=== PATIENT | male | born 1960 | race Hispanic/Latino ===

== ENCOUNTER 2017-07-22 13:15 | Emergency (ER) | payer BC, OTHER ==
[2017-07-22 13:25] VITALS: BP 154/91; PULSE 96; RESP 16; TEMP 97.8; O2SAT 98
--- NOTE | 2017-07-22 14:49 | ED PDOC ---
HPI: Psych/Substance Abuse Time Seen by Provider: 07/22/17 14:15 Chief Complaint (Nursing): Psychiatric Evaluation Chief Complaint (Provider): Anxiety History Per: Patient Additional Complaint(s): To ED for evaluation of feeling anxious for a few weeks. Friend with patient reports patient has been acting bizarre. Denies SI/HI Pt himself offers no physical complaints Past Medical History Reviewed: Nursing Documentation, Vital Signs Vital Signs: Last Vital Signs Temp 97.8 F 07/22/17 13:19 Pulse 96 H 07/22/17 13:19 Resp 16 07/22/17 13:19 BP 154/91 H 07/22/17 13:19 Pulse Ox 98 07/22/17 13:19 - Medical History PMH: Anxiety, CAD, HTN, Hyperlipidemia Denies: Diabetes, Hepatitis, HIV, Seizures, Sexually Transmitted Disease - Surgical History Surgical History: Coronary Stent - Family History Family History: States: Hypertension - Living Arrangements Living Arrangements: With Friends/Others - Social History Current smoker - smoking cessation education provided: No Alcohol: None Drugs: Denies - Home Medications Home Medications: Ambulatory Orders Medication Instructions Recorded Atorvastatin [Lipitor] 80 mg PO HS 07/09/16 Carvedilol [Coreg] 6.25 mg PO Q12 07/09/16 Clopidogrel [Plavix] 75 mg PO DAILY 07/09/16 Losartan [Cozaar] 100 mg PO DAILY 07/09/16 Aspirin [Ecotrin] 81 mg PO DAILY 07/21/16 Fenofibrate [Triglide] 160 mg PO DAILY 07/26/17 [place]-3 Fatty Acids/Fish Oil [Fish 1,000 mg PO DAILY 07/26/17 Oil 1,000 mg Capsule] Escitalopram [Lexapro] 10 mg PO DAILY 15 Days #15 tab 07/29/17 Gabapentin [Neurontin] 200 mg PO TID 07/31/17 Risperidone [Risperdal] 1 mg PO HS 07/31/17 - Allergies Allergies/Adverse Reactions: Allergies Allergy/AdvReac Type Severity Reaction Status Date / Time No Known Allergies Allergy Verified 07/26/17 13:39 Review of Systems Psych: Positive for: Anxiety Physical Exam - Reviewed Nursing Documentation Reviewed: Yes Vital Signs Reviewed: Yes - Physical Exam Appears: Positive for: Well, Non-toxic, No Acute Distress Head Exam: Positive for: ATRAUMATIC, NORMAL INSPECTION, NORMOCEPHALIC Skin: Positive for: Normal Color, Warm, DRY Eye Exam: Positive for: EOMI, Normal appearance, PERRL ENT: Positive for: Normal ENT Inspection Neck: Positive for: Normal, Painless ROM Cardiovascular/Chest: Positive for: Regular Rate, Rhythm Respiratory: Positive for: CNT, Normal Breath Sounds Gastrointestinal/Abdominal: Positive for: Normal Exam, Bowel Sounds, Soft Back: Positive for: Normal Inspection Extremity: Positive for: Normal ROM Neurologic/Psych: Positive for: Alert, Oriented - ECG O2 Sat by Pulse Oximetry: 98 Medical Decision Making Medical Decision Making: Pt medicated with 1 tab Ativan PO for anxiety Pt underwent crisis eval, see notes. Disposition - Clinical Impression Clinical Impression: Anxiety disorder - Disposition Disposition: Routine/Home Disposition Time: 15:20 Condition: STABLE Instructions: Generalized Anxiety Disorder (ED) Forms: [facility] (Khmer)
== END 2017-07-22 15:19 | disposition home or self-care (01) ==
LOC: H.ER 13:15
DX: F41.9 Anxiety disorder, unspecified (principal); I10 Essential (primary) hypertension; Z95.5 Presence of coronary angioplasty implant and graft; Z79.82 Long term (current) use of aspirin; Z86.79 Personal history of other diseases of the circulatory system

== ENCOUNTER 2017-07-26 13:20 | Inpatient (IN) | payer BC ==
[2017-07-26 13:48] VITALS: O2SAT 97
[2017-07-26 15:18] LABS: BASO # 0.1 K/uL (0.0-0.2); BASO % 0.8 % (0.0-2.0); EOS % 0.4 % (0.0-4.0); HEMOGLOBIN 15.8 g/dL (12.0-18.0); LYMPH # 1.8 K/uL (1.0-4.3); LYMPH % 19.1 % (20.0-40.0); MEAN CELL VOLUME 88.5 fl (80.0-94.0); MEAN CORPUSCULAR HEMOGLOBIN 28.8 pg (27.0-31.0); MEAN CORPUSCULAR HGB CONC 32.6 g/dL (33.0-37.0); MEAN PLATELET VOLUME 9.3 fl (7.2-11.7); MONO # 0.8 K/uL (0.0-0.8); MONO % 8.3 % (0.0-10.0); NEUT # 6.9 K/uL (1.8-7.0); NEUT % 71.4 % (50.0-75.0); NRBC % 0.1 % (0.0-0.0); RBC 5.48 Mil/uL (4.40-5.90); RED CELL DISTRIBUTION WIDTH 13.8 % (11.5-14.5); WHITE BLOOD COUNT 9.7 K/uL (4.8-10.8)
[2017-07-26 15:34] LABS: BLOOD UREA NITROGEN 21 mg/dl (9-20); CALCIUM 10.1 mg/dL (8.4-10.2); GFR AFRICAN-AMERICAN > 60; GFR NON-AFRICAN AMERICAN > 60
[2017-07-26 15:35] LABS: ACETAMINOPHEN < 10.0 ug/ml (10.0-30.0); SALICYLATE < 1.0 mg/dl
[2017-07-26 15:44] LABS: SQUAMOUS EPITHIAL < 1 /hpf (0-5); URINE BILIRUBIN NEGATIVE (NEGATIVE); URINE BLOOD SMALL (NEGATIVE); URINE CLARITY SLIGHTY-CLOUDY (Clear); URINE COLOR YELLOW (YELLOW); URINE GLUCOSE (UA) NEG (Normal); URINE LEUKOCYTE ESTERASE NEG Leu/uL (Negative); URINE NITRATE NEGATIVE (NEGATIVE); URINE PROTEIN NEGATIVE (NEGATIVE); URINE UROBILINOGEN 0.2-1.0 mg/dL (0.2-1.0)
[2017-07-26 15:46] LABS: BARBITURATES, UR NEGATIVE (NEGATIVE); BENZODIAZEPINES, UR NEGATIVE (NEGATIVE); OPIATES, UR NEGATIVE (NEGATIVE); PHENCYCLIDINE, UR NEGATIVE (NEGATIVE)
--- NOTE | 2017-07-26 15:55 | ED PDOC ---
HPI: Psych/Substance Abuse Time Seen by Provider: 07/26/17 14:13 Chief Complaint (Nursing): Psychiatric Evaluation Chief Complaint (Provider): Crisis Evaluation History Per: Patient History/Exam Limitations: no limitations Current Symptoms Are (Timing): Still Present Additional History Per: Family (brother) Additional Complaint(s): Phillip is a 56 y/o male with a history of anxiety and depression who was brought to the ED by his brother because patient has been talking to himself, anxious and not taking his medications. Patient denies suicidal or homicidal ideation. Psychiatrist: Dr. Amor Past Medical History Reviewed: Historical Data, Nursing Documentation, Vital Signs Vital Signs: Last Vital Signs Temp 97.5 F L 07/26/17 13:39 Pulse 88 07/26/17 13:39 Resp 16 07/26/17 13:39 BP 111/73 07/26/17 13:39 Pulse Ox 97 07/26/17 13:39 - Medical History PMH: Anxiety, CAD, Depression, HTN, Hyperlipidemia Denies: Diabetes, Hepatitis, HIV, Seizures, Sexually Transmitted Disease - Surgical History Surgical History: Coronary Stent - Family History Family History: States: Hypertension - Social History Current smoker - smoking cessation education provided: Yes (several cigarettes/ day) Alcohol: None Drugs: Denies - Home Medications Home Medications: Ambulatory Orders Medication Instructions Recorded Atorvastatin [Lipitor] 80 mg PO DAILY 07/09/16 Carvedilol [Coreg] 6.25 mg PO Q12 07/09/16 Clopidogrel [Plavix] 75 mg PO DAILY 07/09/16 Losartan [Cozaar] 100 mg PO DAILY 07/09/16 DULoxetine [Cymbalta] 60 mg PO DAILY #30 ecc 07/13/16 Aspirin [Ecotrin] 81 mg PO DAILY 07/21/16 Lorazepam [Ativan] 0.5 mg PO BID 07/21/16 Divalproex [Depakote Sprinkles] 500 mg PO HS 07/22/17 Escitalopram Oxalate [Lexapro] 5 mg PO DAILY 07/22/17 OLANZapine [Zyprexa] 10 mg PO HS 07/22/17 busPIRone [Buspar] 5 mg PO Q8 07/22/17 - Allergies Allergies/Adverse Reactions: Allergies Allergy/AdvReac Type Severity Reaction Status Date / Time No Known Allergies Allergy Verified 07/26/17 13:39 Review of Systems ROS Statement: Except As Marked, All Systems Reviewed And Found Negative Psych: Positive for: Anxiety, Other (talking to himself, noncompliance with meds ). Negative for: Suicidal ideation (or homicidal ideation) Physical Exam - Reviewed Nursing Documentation Reviewed: Yes Vital Signs Reviewed: Yes - Physical Exam Appears: Positive for: Well, Non-toxic, No Acute Distress Cardiovascular/Chest: Positive for: Regular Rate, Rhythm. Negative for: Murmur Respiratory: Positive for: Normal Breath Sounds. Negative for: Respiratory Distress Gastrointestinal/Abdominal: Positive for: Normal Exam, Soft. Negative for: Tenderness Neurologic/Psych: Positive for: Alert, Oriented - Laboratory Results Result Diagrams: 07/26/17 15:04 07/26/17 15:04 - ECG O2 Sat by Pulse Oximetry: 97 (RA) Pulse Ox Interpretation: Normal Medical Decision Making Medical Decision Making: Time: 14:26 Initial Impression: Anxiety Initial Plan: --Acetaminophen --Alcohol Serum --BMP --Urine Drug Screen --Salicylate --CBC --Urinalysis --Crisis Evaluation Urine Drug Screen: Negative Time: 15:52 --Patient is medically cleared for crisis evaluation. Scribe Attestation: Documented by Zohaib Hancock, acting as a scribe for Dr. Sagar Donnelly MD. Provider Scribe Attestation: All medical record entries made by the Scribe were at my direction and personally dictated by me. I have reviewed the chart and agree that the record accurately reflects my personal performance of the history, physical exam, medical decision making, and the department course for this patient. I have also personally directed, reviewed, and agree with the discharge instructions and disposition. Disposition - Disposition Forms: [facility] (Mongolian)
--- NOTE | 2017-07-26 18:59 | PCM.BM ---
Treatment Plan Problems - Problems identified on initial assessmt Problem 1 Date Initiated: 07/26/17 Time Initiated: 18:57 Assessment reference: NA Status: Active Anxiety Date Initiated: 07/26/17 Time Initiated: 18:57 Assessment reference: NA Status: Active Problem 2 Date Initiated: 07/26/17 Fear Date Initiated: 07/26/17 Time Initiated: 18:59 Assessment reference: NA Status: Active Sleep pattern Date Initiated: 07/26/17 Time Initiated: 18:59 Assessment reference: NA Status: Active Treatment assets and liabiliti Patient Assests: cooperative, self-reliant, ADL independent, good support system Patient Liabilities: financial problems, medical problems, other
[2017-07-26] MEDS ORDERED: Magnesium Hydroxide Susp 30 ml UD PO PRN (19:57)
[2017-07-26] MEDS ORDERED: Alum-Mag Hydrox-Simethicone Susp (30 mL) PO PRN (19:57)
[2017-07-26] MEDS ORDERED: DiphenhydrAMINE 50 mg/ml Inj IM PRN (19:57)
[2017-07-27 09:31] LABS: T4 8.63 ug/dl (5.5-11.0)
--- NOTE | 2017-07-27 11:14 | CARD ---
APPROVED REPORT EKG Measurement Heart [id number] <Conclusion> Normal sinus rhythm Possible Left atrial enlargement Possible Lateral infarct, age undetermined Inferior infarct, age undetermined Abnormal ECG
--- NOTE | 2017-07-27 11:38 | CP.PCM.CON ---
<Ricardo Colmenares - Last Filed: 07/27/17 14:54> History of Present Illness - History of Present Illness History of Present Illness: Hospitalist Consult 57 y/o M with a PMHx of HTN, HLD and CAD admitted to psych unit due to anxiety exacerbation and bizarre behavior. Pt reports feeling very overwhelmed with many financial and private problems. Pt reports taking his medication most of the days, 6 days a week. 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 Pt denies fever, headache, dizziness, CP, SOB, abdominal pain or change in bowel movement. PMD: None. Medications: Atorvastatin, Coreg, Plavix , Fenofibrate, Cozaar and psych medications. PMHx: CAD-stent placed 5 years ago as per pt. Hypertension nad hyperlipidemia. PSHx: Stent Placement after ME 5 years ago. FHx: Father due to liver tumor and mother after a stroke. SHx: Tobacco, 1ppd x more than 15 years. No alcohol and no recreational drugs. Review of Systems - Constitutional Constitutional: absent: Chills, Fever, Malaise, Night Sweats - EENT Eyes: absent: Change in Vision, Discharge, Dry Eye Ears: absent: Decreased Hearing Nose/Mouth/Throat: absent: Nasal Congestion, Tongue Swelling - Cardiovascular Cardiovascular: absent: Chest Pain at Rest, Claudication - Respiratory Respiratory: absent: Cough, Dyspnea - Gastrointestinal Gastrointestinal: absent: Abdominal Pain, Bloating, Change in Bowel Habits, Nausea, Vomiting - Genitourinary Genitourinary: absent: Difficulty Urinating - Neurological Neurological: absent: Abnormal Hearing, Headaches, Paresthesias Past Patient History - Past Social History Smoking Status: Heavy Smoker > 10 Cigarettes Daily Alcohol: None Drugs: Denies - CARDIAC Hx Cardiac Disorders: Yes Hx Hypertension: Yes Other/Comment: CAD - PULMONARY Hx Tuberculosis: No - NEUROLOGICAL Hx Seizures: No - HEENT Hx HEENT Problems: No - RENAL Hx Chronic Kidney Disease: No - ENDOCRINE/METABOLIC Hx Endocrine Disorders: No - HEMATOLOGICAL/ONCOLOGICAL Hx Human Immunodeficiency Virus (HIV): No - INTEGUMENTARY Hx Dermatological Problems: No - MUSCULOSKELETAL/RHEUMATOLOGICAL Hx Musculoskeletal Disorders: No - GASTROINTESTINAL Hx Gastrointestinal Disorders: No Hx Ulcer: No Hx Vomiting: No - GENITOURINARY/GYNECOLOGICAL Hx Genitourinary Disorders: No Hx Sexually Transmitted Disorders: No - PSYCHIATRIC Hx Substance Use: No - SURGICAL HISTORY Hx Coronary Stent: Yes - ANESTHESIA Hx Anesthesia: Yes Hx Anesthesia Reactions: No Has any member of the family had a problem w/ anesthesia?: No Meds Allergies/Adverse Reactions: Allergies Allergy/AdvReac Type Severity Reaction Status Date / Time No Known Allergies Allergy Verified 07/26/17 13:39 - Medications Medications: Current Medications Acetaminophen (Tylenol 325mg Tab) 650 mg PO Q4 PRN PRN Reason: Pain, moderate (4-7) Al Hydrox/Mg Hydrox/Simethicone (Maalox Plus 30 Ml) 30 ml PO Q4 PRN PRN Reason: Dyspepsia Aspirin (Ecotrin) 81 mg PO DAILY [facility] Last Admin: 07/27/17 09:47 Dose: 81 mg Atorvastatin Calcium (Lipitor) 80 mg PO HS [facility] Last Admin: 07/26/17 21:03 Dose: 80 mg Carvedilol (Coreg) 6.25 mg PO Q12 [facility] Last Admin: 07/27/17 09:45 Dose: 6.25 mg Clopidogrel Bisulfate (Plavix) 75 mg PO DAILY [facility] Last Admin: 07/27/17 09:47 Dose: 75 mg Diphenhydramine HCl (Benadryl) 50 mg IM Q6 PRN PRN Reason: Extrapyramidal S/S Unable PO Diphenhydramine HCl (Benadryl) 50 mg PO HS PRN PRN Reason: Sleep Escitalopram Oxalate (Lexapro) 10 mg PO DAILY [facility] Fenofibrate (Tricor) 145 mg PO DAILY [facility] Last Admin: 07/27/17 09:47 Dose: 145 mg Haloperidol (Haldol) 5 mg PO Q4 PRN PRN Reason: Agitation Haloperidol Lactate (Haldol) 5 mg IM Q4 PRN PRN Reason: Agitation, Unable to Take PO Lorazepam (Ativan) 2 mg IM Q4 PRN PRN Reason: Anxiety/Agitation,Unable PO Losartan Potassium (Cozaar) 100 mg PO DAILY [facility] Last Admin: 07/27/17 09:48 Dose: 100 mg Magnesium Hydroxide (Milk Of Magnesia) 30 ml PO HS PRN PRN Reason: Constipation Nicotine (Nicoderm Cq) 1 patch TD DAILY [facility] Physical Exam - Constitutional Appears: Well, No Acute Distress - Eye Exam Additional comments: Presence of strabismus. - ENT Exam ENT Exam: Mucous Membranes Moist - Neck Exam Neck exam: Positive for: Full Rom. Negative for: Meningismus - Respiratory Exam Respiratory Exam: Clear to Auscultation Bilateral, NORMAL BREATHING PATTERN - Cardiovascular Exam Cardiovascular Exam: REGULAR RHYTHM, +S1, +S2 - GI/Abdominal Exam GI & Abdominal Exam: Normal Bowel Sounds, Soft. absent: Distended, Firm, Guarding, Tenderness - Extremities Exam Extremities exam: Positive for: full ROM, normal inspection. Negative for: calf tenderness - Neurological Exam Neurological exam: Alert, Oriented x3 - Skin Skin Exam: Dry, Intact Results - Vital Signs Recent Vital Signs: Last Vital Signs Temp 97.7 F 07/27/17 09:12 Pulse 66 07/27/17 09:48 Resp 18 07/27/17 09:12 BP 125/79 07/27/17 09:48 Pulse Ox 97 07/26/17 16:06 - Labs Result Diagrams: 07/26/17 15:04 07/26/17 15:04 Labs: Laboratory Results - last 24 hr 07/26/17 07/26/17 07/26/17 15:04 15:04 15:04 WBC 9.7 RBC 5.48 Hgb 15.8 Hct 48.4 MCV 88.5 MCH 28.8 MCHC 32.6 L RDW 13.8 Plt Count 219 MPV 9.3 Neut % (Auto) 71.4 Lymph % (Auto) 19.1 L [place] % (Auto) 8.3 Eos % (Auto) 0.4 Baso % (Auto) 0.8 Neut # (Auto) 6.9 Lymph # (Auto) 1.8 [place] # (Auto) 0.8 Eos # (Auto) 0.0 Baso # (Auto) 0.1 Sodium 143 Potassium 3.9 Chloride 101 Carbon Dioxide 26 Anion Gap 20 BUN 21 H Creatinine 0.5 L Est GFR ( Amer) > 60 Est GFR (Non-Af Amer) > 60 Random Glucose 129 H Calcium 10.1 Triglycerides Cholesterol LDL Cholesterol Direct HDL Cholesterol Thyroxine (T4) TSH 3rd Generation Urine Color Urine Clarity Urine pH Ur Specific [place] Urine Protein Urine Glucose (UA) Urine Ketones Urine Blood Urine Nitrate Urine Bilirubin Urine Urobilinogen Ur Leukocyte Esterase Urine RBC (Auto) Urine Microscopic WBC Ur Squamous Epith Cells Salicylates < 1.0 Urine Opiates Screen Urine Methadone Screen Acetaminophen < 10.0 L Ur Barbiturates Screen Valproic Acid Ur Phencyclidine Scrn Ur Amphetamines Screen U Benzodiazepines Scrn U Oth Cocaine Metabols U Cannabinoids Screen Alcohol, Quantitative < 10 07/26/17 07/26/17 07/27/17 15:04 15:04 08:43 WBC RBC Hgb Hct MCV MCH MCHC RDW Plt Count MPV Neut % (Auto) Lymph % (Auto) [place] % (Auto) Eos % (Auto) Baso % (Auto) Neut # (Auto) Lymph # (Auto) [place] # (Auto) Eos # (Auto) Baso # (Auto) Sodium Potassium Chloride Carbon Dioxide Anion Gap BUN Creatinine Est GFR ( Amer) Est GFR (Non-Af Amer) Random Glucose Calcium Triglycerides Cholesterol LDL Cholesterol Direct HDL Cholesterol Thyroxine (T4) TSH 3rd Generation Urine Color Yellow Urine Clarity Slighty-cloudy Urine pH 6.0 Ur Specific [place] 1.020 Urine Protein Negative Urine Glucose (UA) Neg Urine Ketones Negative Urine Blood Small Urine Nitrate Negative Urine Bilirubin Negative Urine Urobilinogen 0.2-1.0 Ur Leukocyte Esterase Neg Urine RBC (Auto) 4 H Urine Microscopic WBC 1 Ur Squamous Epith Cells < 1 Salicylates Urine Opiates Screen Negative Urine Methadone Screen Negative Acetaminophen Ur Barbiturates Screen Negative Valproic Acid < 10.0 L Ur Phencyclidine Scrn Negative Ur Amphetamines Screen Negative U Benzodiazepines Scrn Negative U Oth Cocaine Metabols Negative U Cannabinoids Screen Negative Alcohol, Quantitative 07/27/17 08:43 WBC RBC Hgb Hct MCV MCH MCHC RDW Plt Count MPV Neut % (Auto) Lymph % (Auto) [place] % (Auto) Eos % (Auto) Baso % (Auto) Neut # (Auto) Lymph # (Auto) [place] # (Auto) Eos # (Auto) Baso # (Auto) Sodium Potassium Chloride Carbon Dioxide Anion Gap BUN Creatinine Est GFR ( Amer) Est GFR (Non-Af Amer) Random Glucose Calcium Triglycerides 120 Cholesterol 169 LDL Cholesterol Direct 112 HDL Cholesterol 43 Thyroxine (T4) 8.63 TSH 3rd Generation 0.53 Urine Color Urine Clarity Urine pH Ur Specific [place] Urine Protein Urine Glucose (UA) Urine Ketones Urine Blood Urine Nitrate Urine Bilirubin Urine Urobilinogen Ur Leukocyte Esterase Urine RBC (Auto) Urine Microscopic WBC Ur Squamous Epith Cells Salicylates Urine Opiates Screen Urine Methadone Screen Acetaminophen Ur Barbiturates Screen Valproic Acid Ur Phencyclidine Scrn Ur Amphetamines Screen U Benzodiazepines Scrn U Oth Cocaine Metabols U Cannabinoids Screen Alcohol, Quantitative Assessment & Plan - Assessment and Plan (Free Text) Assessment: 57 y/o M with a PMHx of HTN, HLD and CAD admitted to psych unit for anxiety exacerbation and bizarre behavior. Plan: 1. Anxiety State - Continue psychiatry management. 2. CAD - C/w Aspirin, Lipitor, Clopidogrel, Losartan, Lipitor, Carvedilol - EKG abnormal with NSR, possible lateral infarct, inferior infart with age undetermined. No acute changes from last year's EKG. - Monitor vital signs and symptoms. 3. HTN - C/w Losartan - Monitor BP 4. HLD - C/w Lipitor and fenifibrate - Lipid profile CHOL 169, Trig 120, LDL 112, HDL 43. - Date & Time Date: 07/27/17 Time: 10:30 <Summer Ferro - Last Filed: 07/27/17 15:46> Meds - Medications Medications: Current Medications Acetaminophen (Tylenol 325mg Tab) 650 mg PO Q4 PRN PRN Reason: Pain, moderate (4-7) Al Hydrox/Mg Hydrox/Simethicone (Maalox Plus 30 Ml) 30 ml PO Q4 PRN PRN Reason: Dyspepsia Aspirin (Ecotrin) 81 mg PO DAILY [facility] Last Admin: 07/27/17 09:47 Dose: 81 mg Atorvastatin Calcium (Lipitor) 80 mg PO HS [facility] Last Admin: 07/26/17 21:03 Dose: 80 mg Carvedilol (Coreg) 6.25 mg PO Q12 [facility] Last Admin: 07/27/17 09:45 Dose: 6.25 mg Clopidogrel Bisulfate (Plavix) 75 mg PO DAILY [facility] Last Admin: 07/27/17 09:47 Dose: 75 mg Diphenhydramine HCl (Benadryl) 50 mg IM Q6 PRN PRN Reason: Extrapyramidal S/S Unable PO Diphenhydramine HCl (Benadryl) 50 mg PO HS PRN PRN Reason: Sleep Escitalopram Oxalate (Lexapro) 10 mg PO DAILY [facility] Last Admin: 07/27/17 13:42 Dose: 10 mg Fenofibrate (Tricor) 145 mg PO DAILY [facility] Last Admin: 07/27/17 09:47 Dose: 145 mg Gabapentin (Neurontin) 100 mg PO TID [facility] Last Admin: 07/27/17 13:42 Dose: 100 mg Haloperidol (Haldol) 5 mg PO Q4 PRN PRN Reason: Agitation Haloperidol Lactate (Haldol) 5 mg IM Q4 PRN PRN Reason: Agitation, Unable to Take PO Lorazepam (Ativan) 2 mg IM Q4 PRN PRN Reason: Anxiety/Agitation,Unable PO Losartan Potassium (Cozaar) 100 mg PO DAILY [facility] Last Admin: 07/27/17 09:48 Dose: 100 mg Magnesium Hydroxide (Milk Of Magnesia) 30 ml PO HS PRN PRN Reason: Constipation Nicotine (Nicoderm Cq) 1 patch TD DAILY [facility] Results - Vital Signs Recent Vital Signs: Last Vital Signs Temp 97.7 F 07/27/17 09:12 Pulse 66 07/27/17 09:48 Resp 18 07/27/17 09:12 BP 125/79 07/27/17 09:48 Pulse Ox 97 07/26/17 16:06 - Labs Result Diagrams: 07/26/17 15:04 07/26/17 15:04 Labs: Laboratory Results - last 24 hr 07/26/17 07/27/17 07/27/17 15:04 08:43 08:43 Triglycerides 120 Cholesterol 169 LDL Cholesterol Direct 112 HDL Cholesterol 43 Thyroxine (T4) 8.63 TSH 3rd Generation 0.53 Urine Opiates Screen Negative Ur Barbiturates Screen Negative Valproic Acid < 10.0 L Ur Phencyclidine Scrn Negative Ur Amphetamines Screen Negative U Benzodiazepines Scrn Negative U Oth Cocaine Metabols Negative U Cannabinoids Screen Negative Assessment & Plan - Assessment and Plan (Free Text) Assessment: no evidence of acute ischemia or infarct, no chest pain. Attending/Attestation - Attestation I have personally seen and examined this patient.: Yes I have fully participated in the care of the patient.: Yes I have reviewed all pertinent clinical information: Yes Notes (Text): 07/27/17 15:46 Seen, examined, discussed with resident Dr. Colmenares, agree with findings and plan as above.
--- NOTE | 2017-07-27 15:59 | PCM.PSYCH ---
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 Patient states he feels anxious. Mr. Fang stated that patient was in the ER a couple of days ago and he walked out, patient responded that he was discharged, brother stated that patient refused to be admitted and that was the reason he walked out. Mr. Fang stated that he is worry for his brother who is not taking his medication for his medical problems. Patient have an heart chung and he is telling his brother that he missed his medication because he forget to take it. Patient had been very anxious, not able to eat, patient had been talking to himself. Mr. Fang stated that his brother is always concerned about his financial situation after he was lost his job. They have a two family home that they inherit from their parents. Patient lives there and is collecting rent from the tenant. As per Mr. Fang patient should sell the home and live with the money that he would get from the house without all the stress that cause to have a property. He told his brother that he don't want any part of that money, and he is leaving everything to him, so he can be without any financial stress. Mr. Fang is worry for his brother and would like to see him admitted for stabilization. [ End ] Current Medications: Active Medications Generic Name Dose Route Start Last Admin Trade Name Freq PRN Reason Stop Dose Admin Acetaminophen 650 mg 07/26/17 19:57 Tylenol 325mg Tab PO Q4 PRN Pain, moderate (4-7) Al Hydrox/Mg Hydrox/Simethicone 30 ml 02/14/18 19:57 Maalox Plus 30 Ml PO Q4 PRN Dyspepsia Aripiprazole 5 mg 07/27/17 22:00 Abilify PO HS ENEIDA Aspirin 81 mg 07/27/17 09:00 07/27/17 09:47 Ecotrin PO 81 mg DAILY ENEIDA Administration Atorvastatin Calcium 80 mg 07/26/17 22:00 07/26/17 21:03 Lipitor PO 80 mg HS ENEIDA Administration Carvedilol 6.25 mg 07/26/17 21:00 07/27/17 09:45 Coreg PO 6.25 mg Q12 ENEIDA Administration Clopidogrel Bisulfate 75 mg 07/27/17 09:00 07/27/17 09:47 Plavix PO 75 mg DAILY ENEIDA Administration Diphenhydramine HCl 50 mg 07/26/17 19:57 Benadryl IM Q6 PRN Extrapyramidal S/S Unable PO Diphenhydramine HCl 50 mg 07/26/17 19:57 Benadryl PO HS PRN Sleep Escitalopram Oxalate 10 mg 07/27/17 10:15 07/27/17 13:42 Lexapro PO 10 mg DAILY [facility] Administration Fenofibrate 145 mg 07/27/17 09:00 07/27/17 09:47 Tricor PO 145 mg DAILY [facility] Administration Gabapentin 100 mg 07/27/17 13:00 07/27/17 13:42 Neurontin PO 100 mg TID ENEIDA Administration Haloperidol 5 mg 07/26/17 19:57 Haldol PO Q4 PRN Agitation Haloperidol Lactate 5 mg 07/26/17 19:57 Haldol IM Q4 PRN Agitation, Unable to Take PO Lorazepam 2 mg 07/26/17 19:57 Ativan IM Q4 PRN Anxiety/Agitation,Unable PO Losartan Potassium 100 mg 07/27/17 09:00 07/27/17 09:48 Cozaar PO 100 mg DAILY [facility] Administration Magnesium Hydroxide 30 ml 07/26/17 19:57 Milk Of Magnesia PO HS PRN Constipation Nicotine 1 patch 07/28/17 09:00 Nicoderm Cq TD DAILY [facility] Past Psychiatric History - Past Psychiatric History Explanation of prior treatment: at least one previous hospitalization at [facility] with similar presentation History of ETOH/Drug Use: denied Pertinent Medical Hx (Current Medical&Sleep Prob, Allergies): Allergies Allergy/AdvReac Type Severity Reaction Status Date / Time No Known Allergies Allergy Verified 07/26/17 13:39 Atorvastatin [Lipitor] 80 mg PO HS 07/09/16 Carvedilol [Coreg] 6.25 mg PO Q12 07/09/16 Clopidogrel [Plavix] 75 mg PO DAILY 07/09/16 Losartan [Cozaar] 100 mg PO DAILY 07/09/16 Aspirin [Ecotrin] 81 mg PO DAILY 07/21/16 Divalproex [Depakote Sprinkles] 500 mg PO HS 07/22/17 OLANZapine [Zyprexa] 10 mg PO HS 07/22/17 busPIRone [Buspar] 5 mg PO Q8 07/22/17 Escitalopram [Lexapro] 10 mg PO DAILY 07/26/17 Fenofibrate [Triglide] 160 mg PO DAILY 07/26/17 [place]-3 Fatty Acids/Fish Oil [Fish Oil 1,000 mg Capsule] 1,000 mg PO DAILY 07/26 Mental Status Examination - Personal Presentation Personal Presentation: Looks older than stated age - Affect Affect: Depressed Additional comments: anxious - Motor Activity Motor Activity: Calm, Psychomotor Agitation - Reliability in Providing Information Reliability in Providing Information: Fair - Speech Speech: Relevant - Mood Mood: Depressed, Anxious - Formal Thought Process Formal Thought Process: Circumstantial Additional comments: pt denied perceptual disturbances but observed internally preoccupied - Obsessions/Compulsions Obsessions: No Compulsions: No - Cognitive Functions Orientation: Person, Place, Situation Sensorium: Alert Judgement: Imparied, as evidence by: Poor judgement, Imparied, as evidence by: Lack of insight into illness - Strength & Assets Inventory Strength & Assets Inventory: Family support - Limitations Additional comments: poor compliance DSM 5 DX - DSM 5 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
[2017-07-27] MEDS: Risperidone M tab 1 MG PO SCH (21:37)
--- NOTE | 2017-07-28 15:45 | PCM.PYCHPN ---
Psychiatric Progress Note - Psychiatric Progress Note Patient seen today, length of contact: pt evaluated discussed with team chart reviewed Patient Chief Complaint: I am less anxious Problems Identified/Issues Discussed: pt evaluated with treatment team, reported less anxious , presenting with brighter mood and affect denied suicidal or homicidal ideations, no reported side effects of medications Medical Problems: at least one previous hospitalization at [facility] with similar presentation DSM 5 Symptoms Update: generalized anxiety disorder depression Medication Change: Yes (increase neurontin) Medical Record Reviewed: Yes Mental Status Examination - Cognitive Function Orientation: Person, Place, Situation Attention: WNL Concentration: WNL Association: WNL Fund of Knowledge: Poor Decription of patient's judgement and insights: fair insight and judgement - Mood Mood: Depressed, Anxious - Affect Affect: Constricted, Depressed - Speech Speech: Soft - Formal Thought Process Formal Thought Process: Circumstantial - Suicidal Ideation Suicidal Ideation: No - Homicidal Ideation Homicidal Ideation: No Goal/Treatment Plan - Goal/Treatment Plan Need for Continued Stay: Severe depression anxiety, Discharge may exacerbated symptoms Progress Toward Problem(s) and Goals/Treatment Plan: lexapro 10mg abilify 2mg neurontin 200mg tid CBT group and supportive therapy
[2017-07-28] MEDS: Risperidone M tab 1 MG PO SCH (21:11)
[2017-07-29 08:59] VITALS: BP 139/62; PULSE 62
[2017-07-29 10:29] VITALS: RESP 16; TEMP 97.1
--- NOTE | 2017-07-29 11:37 | PCM.PSYCH ---
Initial Psychiatric Evaluation - Initial Psychiatric Evaluation Type of Admission: Voluntary Legal Status: Capacity Chief Complaint (in patient's own words): came into hospital was feeling depressed with suicidal thoughts which are no longer present, believes has improved, sleeping and eating well, taking current medication combination which is helping with mood denies side effects Patient's Reaction to Hospitalization: pt signed in voluntarily, was participating in unit based milieu therapy-then signed 48hour notice. History of Present Illness and Precipitating Events: history of depression in past, previously treated in community, intermittent adherence, previously treated at [facility], was feeling overwhelmed-not feeling like he had options-not taking medications intermittently-not reports that he is feeling better realizes that he was overwhelmed, reports that he knows he has to work on coping, is willing to follow up return to [facility] for treatment/mental health. will follow up with [facility] for medical treatment. pt has been on unit staff report pt has been taking rx, seen participating in unit Current Medications: Active Medications Generic Name Dose Route Start Last Admin Trade Name Freq PRN Reason Stop Dose Admin Acetaminophen 650 mg 07/26/17 19:57 Tylenol 325mg Tab PO Q4 PRN Pain, moderate (4-7) Al Hydrox/Mg Hydrox/Simethicone 30 ml 07/26/17 19:57 Maalox Plus 30 Ml PO Q4 PRN Dyspepsia Aspirin 81 mg 07/27/17 09:00 07/29/17 08:54 Ecotrin PO 81 mg DAILY ENEIDA Administration Atorvastatin Calcium 80 mg 07/26/17 22:00 07/28/17 21:11 Lipitor PO 80 mg HS ENEIDA Administration Carvedilol 6.25 mg 07/26/17 21:00 07/29/17 08:53 Coreg PO 6.25 mg Q12 ENEIDA Administration Clopidogrel Bisulfate 75 mg 07/27/17 09:00 07/29/17 08:55 Plavix PO 75 mg DAILY ENEIDA Administration Diphenhydramine HCl 50 mg 07/26/17 19:57 Benadryl IM Q6 PRN Extrapyramidal S/S Unable PO Diphenhydramine HCl 50 mg 07/26/17 19:57 Benadryl PO HS PRN Sleep Escitalopram Oxalate 10 mg 07/27/17 10:15 07/29/17 08:54 Lexapro PO 10 mg DAILY ENEIDA Administration Fenofibrate 145 mg 07/27/17 09:00 07/29/17 08:55 Tricor PO 145 mg DAILY ENEIDA Administration Gabapentin 200 mg 07/28/17 17:00 07/28/17 16:54 Neurontin PO 200 mg TID ENEIDA Administration Haloperidol 5 mg 07/26/17 19:57 Haldol PO Q4 PRN Agitation Haloperidol Lactate 5 mg 07/26/17 19:57 Haldol IM Q4 PRN Agitation, Unable to Take PO Lorazepam 2 mg 07/26/17 19:57 Ativan IM Q4 PRN Anxiety/Agitation,Unable PO Losartan Potassium 100 mg 07/27/17 09:00 07/29/17 08:54 Cozaar PO 100 mg DAILY ENEIDA Administration Magnesium Hydroxide 30 ml 07/26/17 19:57 Milk Of Magnesia PO HS PRN Constipation Nicotine 1 patch 07/28/17 09:00 07/29/17 08:54 Nicoderm Cq TD 1 patch DAILY ENEIDA Administration Risperidone 1 mg 07/27/17 22:00 07/28/17 21:11 Risperdal M-Tab PO 1 mg HS ENEIDA Administration Past Psychiatric History - Past Psychiatric History Prior Psychiatric Treatment: pt sees dr. lopes in [place] for depression/ anxiety [facility]: 07/09[facility]17 Explanation of prior treatment: at least one previous hospitalization at [facility] with similar presentation pt sees dr. lopes in [place] for depression/anxiety for last two months. he is a 55 yo male from [place] and is living in [place]. he has a history of anxiety, which worsened over the last several months. pt states he has lost 20 lbs because of lose of appetite. he has trouble focusing. he worries all the time. he is tremulous. pt is guarded about his symptoms. he apparently made some suicidal statements or statements that could be interpreted as suicidal- asked about what would happen if he was to take more of his blood thinner than prescribed. he is denying that he wants to kill himself. apparently his friends were very concerned and encouraged him to get treatment here. at this time he is agreeable to treatment. he appears to be very anxious and is with halting speech, hand tremors, picking at skin, during the interview. pt worked on [employer] for 20 years and recently was laid off pt is and with son in college at [employer]. History of Abuse: denies Pertinent Medical Hx (Current Medical&Sleep Prob, Allergies): Allergies Allergy/AdvReac Type Severity Reaction Status Date / Time No Known Allergies Allergy Verified 07/26/17 13:39 Atorvastatin [Lipitor] 80 mg PO HS 07/09/16 Carvedilol [Coreg] 6.25 mg PO Q12 07/09/16 Clopidogrel [Plavix] 75 mg PO DAILY 07/09/16 Losartan [Cozaar] 100 mg PO DAILY 07/09/16 Aspirin [Ecotrin] 81 mg PO DAILY 07/21/16 Divalproex [Depakote Sprinkles] 500 mg PO HS 07/22/17 OLANZapine [Zyprexa] 10 mg PO HS 07/22/17 busPIRone [Buspar] 5 mg PO Q8 07/22/17 Escitalopram [Lexapro] 10 mg PO DAILY 07/26/17 Fenofibrate [Triglide] 160 mg PO DAILY 07/26/17 [place]-3 Fatty Acids/Fish Oil [Fish Oil 1,000 mg Capsule] 1,000 mg PO DAILY 07/26
--- NOTE | 2017-07-29 11:49 | PCM.PYCHDC ---
Mental Status Examination - Mental Status Examination Orientation: Person, Place, Situation, Time Memory: Intact Mood: Other (less depressed calmer) Affect: Other (smiles at times , is variation in affect which appear mood congruent) Speech: Appropriate Attention: WNL Concentration: WNL Association: WNL Fund of Knowledge: WNL Formal Thought Process: No Impairment Description of patient's judgement and insight: fair Psychotic Thoughts and Behaviors: denies paranoia, hallucinations, grandiosity Suicidal Ideation: No Current Homicidal Ideation?: No Discharge Summary - Discharge Note Reason for Hospitalization: pt signed in voluntarily, was participating in unit based milieu therapy-then signed 48hour notice. Psychiatric History (includes Medical, Family, Personal Hx): pt sees dr. lopes in [place] for depression/anxiety for last two months. Laboratory Data: per chart Consultations:: List each consultation separately and include: 1. Reason for request. 2. Findings. 3. Follow-up Consultations: hospitalist Summary of Hospital Course include:: 1. Description of specific treatment plan utilized for patients during their course of treatmen. 2. Summarize the time- course for resolution of acute symptoms and/or regressed behaviors. 3. Describe issues identified and worked on during hospitalization. 4. Describe medication utilized. 5. Describe medical problems identified and treated. 6. Reassessment of suicide risk Summary of Hospital Course: pt was admitted on an involuntary basis, was evaluated by psychiatry/treatment team, treatment plan initiated including changing olanzapine to risperdal 1mg po hs, maintain neurontin 300mg po tid and lexapro 10mg po day. pt was evaluated by hospitalist. participated in milieu therapy. pt then submitted 48 hour notice, was evaluated further, was not suicidal, denied psychois. pt did not appear to meeting screening criteria pt was discharged with follow up for both medical and psychiatric care with instructions to return to er, call 911 or call [facility] psychiatric emergency room/mobile crisis if there are any changes in terms of additional suicidal ideations. history of depression in past, previously treated in community, intermittent adherence, previously treated at [facility], was feeling overwhelmed-not feeling like he had options-not taking medications intermittently-not reports that he is feeling better realizes that he was overwhelmed, reports that he knows he has to work on coping, is willing to follow up return to [facility] for treatment/mental health. will follow up with [facility] for medical treatment. pt has been on unit staff report pt has been taking rx, seen participating in unit was previously seen in 07/09/17 at [facility] pt sees dr. lopes in [place] for depression/anxiety for last two months. he is a 55 yo male from [place] and is living in [place]. he has a history of anxiety, which worsened over the last several months. pt states he has lost 20 lbs because of lose of appetite. he has trouble focusing. he worries all the time. he is tremulous. pt is guarded about his symptoms. he apparently made some suicidal statements or statements that could be interpreted as suicidal- asked about what would happen if he was to take more of his blood thinner than prescribed. he is denying that he wants to kill himself. apparently his friends were very concerned and encouraged him to get treatment here. at this time he is agreeable to treatment. he appears to be very anxious and is with halting speech, hand tremors, picking at skin, during the interview. pt worked on [employer] for 20 years and recently was laid off pt is and with son in college at [employer]. - Final Diagnosis (DSM 5) Condition upon Discharge: FAIR Disposition: HOME/ ROUTINE
== END 2017-07-29 12:05 | disposition home or self-care (01) | DRG 885 ==
LOC: H.ER 13:20 → H.ERHOLD 17:39 → H.PSYCH 18:20
PROVIDERS: ADMIT Psychiatry & Neurology Psychiatry; ATTEND Psychiatry & Neurology Psychiatry
PROC: GZHZZZZ Group Psychotherapy (ICD-10-PCS; principal; 2017-07-26)
PROC: GZ58ZZZ Individual Psychotherapy, Cognitive-Behavioral (ICD-10-PCS; 2017-07-26)
DX: F33.3 Major depressive disorder, recurrent, severe with psychotic symptoms (principal); Z91.19 Patient's noncompliance with other medical treatment and regimen; E78.5 Hyperlipidemia, unspecified; F41.1 Generalized anxiety disorder; I10 Essential (primary) hypertension; I25.10 Atherosclerotic heart disease of native coronary artery without angina pectoris; F17.200 Nicotine dependence, unspecified, uncomplicated; I25.2 Old myocardial infarction; Z95.5 Presence of coronary angioplasty implant and graft; Z79.02 Long term (current) use of antithrombotics/antiplatelets; Z79.82 Long term (current) use of aspirin

== ENCOUNTER 2017-07-31 12:48 | Inpatient (IN) | payer BC ==
[2017-07-31 13:11] VITALS: O2SAT 98
[2017-07-31 13:59] LABS: BASO # 0.1 K/uL (0.0-0.2); BASO % 0.7 % (0.0-2.0); EOS % 0.1 % (0.0-4.0); HEMOGLOBIN 15.7 g/dL (12.0-18.0); LYMPH # 1.3 K/uL (1.0-4.3); LYMPH % 14.5 % (20.0-40.0); MEAN CELL VOLUME 88.3 fl (80.0-94.0); MEAN CORPUSCULAR HEMOGLOBIN 29.3 pg (27.0-31.0); MEAN CORPUSCULAR HGB CONC 33.1 g/dL (33.0-37.0); MEAN PLATELET VOLUME 9.2 fl (7.2-11.7); MONO # 0.8 K/uL (0.0-0.8); NEUT # 6.9 K/uL (1.8-7.0); NEUT % 75.7 % (50.0-75.0); RBC 5.35 Mil/uL (4.40-5.90); RED CELL DISTRIBUTION WIDTH 13.7 % (11.5-14.5); WHITE BLOOD COUNT 9.2 K/uL (4.8-10.8)
--- NOTE | 2017-07-31 14:01 | ED PDOC ---
HPI: Psych/Substance Abuse Time Seen by Provider: 07/31/17 13:12 Chief Complaint (Nursing): Psychiatric Evaluation Chief Complaint (Provider): Psychiatric Evaluation History Per: Patient History/Exam Limitations: no limitations Onset/Duration Of Symptoms: Days (x2) Current Symptoms Are (Timing): Still Present Associated Symptoms: Anxiety Additional History Per: Family (Brother) Additional Complaint(s): Patient with a history of bipolar disorder and anxiety brought in by brother for psychiatric evaluation. Patient reports feeling anxious. Other psychiatric symptoms: (-) hallucinations, (-) depression, (-) suicidal ideation, (-) homicidal ideation. As per brother, patient is noncompliant with taking psychiatric medications. Patient signed out AMA from psych floor on Monday. Otherwise: (-) trauma, (-) fever, (-)headache, (-) dyspnea, (-) vomiting, (-) substance abuse, (-) patient intent of initiating a suicide attempt, (-) plan. PMD: TBD Past Medical History Reviewed: Historical Data, Nursing Documentation, Vital Signs Vital Signs: Last Vital Signs Temp 97.3 F L 07/31/17 13:05 Pulse 94 H 07/31/17 13:05 Resp 18 07/31/17 13:05 BP Pulse Ox 98 07/31/17 13:05 - Medical History PMH: Anxiety, CAD, Depression, HTN, Hyperlipidemia Denies: Diabetes, Hepatitis, HIV, Chronic Kidney Disease, Seizures, Sexually Transmitted Disease - Surgical History Surgical History: Coronary Stent - Family History Family History: States: Unknown Family Hx, Hypertension - Home Medications Home Medications: Ambulatory Orders Medication Instructions Recorded Atorvastatin [Lipitor] 80 mg PO HS 07/09/16 Carvedilol [Coreg] 6.25 mg PO Q12 07/09/16 Clopidogrel [Plavix] 75 mg PO DAILY 07/09/16 Losartan [Cozaar] 100 mg PO DAILY 07/09/16 Aspirin [Ecotrin] 81 mg PO DAILY 07/21/16 Fenofibrate [Triglide] 160 mg PO DAILY 07/26/17 [place]-3 Fatty Acids/Fish Oil [Fish 1,000 mg PO DAILY 07/26/17 Oil 1,000 mg Capsule] Escitalopram [Lexapro] 10 mg PO DAILY 15 Days #15 tab 07/29/17 Gabapentin [Neurontin] 200 mg PO TID 07/31/17 Risperidone [Risperdal] 1 mg PO HS 07/31/17 - Allergies Allergies/Adverse Reactions: Allergies Allergy/AdvReac Type Severity Reaction Status Date / Time No Known Allergies Allergy Verified 07/26/17 13:39 Review of Systems ROS Statement: Except As Marked, All Systems Reviewed And Found Negative Psych: Positive for: Anxiety. Negative for: Depression, Suicidal ideation (and homicidal), Other (hallucinations) Physical Exam - Reviewed Nursing Documentation Reviewed: Yes Vital Signs Reviewed: Yes - Physical Exam Comments: GENERAL APPEARANCE: Patient is awake, alert, oriented x 3, in no acute distress. SKIN: Warm, dry; (-) cyanosis HEAD: (-) scalp swelling, (-) scalp tenderness. EYES: (-) conjunctival pallor, (-) scleral icterus, (-) nystagmus. ENMT: Mucous membranes moist. Airway patent: (-) stridor. NECK: (-) tenderness, (-) stiffness, (-) lymphadenopathy. CHEST AND RESPIRATORY: (-) rales, (-) rhonchi, (-) wheezes; breath sounds equal. ABDOMEN: Soft, (-) distention, (-) tenderness, (-) guarding. NEURO AND PSYCH: Mental status as above. Affect: Calm and cooperative. vascular radiologist: Intact. Pupils equal and reactive; EOMI; (-) facial asymmetry; tongue and uvula midline. Strength and DTRs symmetric. - Laboratory Results Result Diagrams: 07/31/17 13:50 07/31/17 13:50 - ECG O2 Sat by Pulse Oximetry: 98 (RA) Pulse Ox Interpretation: Normal Medical Decision Making Medical Decision Making: Time: 13:31 Patient seen and evaluated by molding utility worker; Patient will be admitted for bipolar disorder, as per Dr. Thompson. Pending medical clearance at this time. Time: 13:39 * EKG * Alcohol serum * Urine drug screen * CMP * CBC * Chest X-Ray * Urinalysis Labs reviewed, urine is clear. Toxicology negative. Blood work is grossly normal. EKG: NSR at 87 bpm, (+) artifact in the EKG, likely to patient motion, (-) acute ST changes, as read by JENNIFER. CXR : NAD, as read by PA Patient is medically cleared for crisis evaluation. Patient seen and evaluated by crisis. As per crisis, patient will be admitted for further care and treatment as per Dr. Thompson for bipolar d/o. Scribe Attestation: Documented by Jazzy Lantigua, acting as a scribe for Noemi Nj PA-C Provider Scribe Attestation: All medical record entries made by the Scribe were at my direction and personally dictated by me. I have reviewed the chart and agree that the record accurately reflects my personal performance of the history, physical exam, medical decision making, and the department course for this patient. I have also personally directed, reviewed, and agree with the discharge instructions and disposition. Disposition - Clinical Impression Clinical Impression: Bipolar disorder - Patient ED Disposition Is Patient to be Admitted: Yes Discussed With : Diana Thompson Doctor Will See Patient In The: Hospital Counseled Patient/Family Regarding: Studies Performed, Diagnosis - Disposition Disposition Time: 14:32 Condition: STABLE - Pt Status Changed To: Hospital Disposition Of: Inpatient - Admit Certification Admit to Inpatient:: After my assessment, the patient will require hospitalization for at least two midnights. This is because of the severity of symptoms shown, intensity of services needed, and/or the medical risk in this patient being treated as an outpatient. - POA Present On Arrival: None - PA / BREAKFAST MANAGER / Resident Statement / has reviewed & agrees with the documentation as recorded.
[2017-07-31 14:02] LABS: SQUAMOUS EPITHIAL < 1 /hpf (0-5); URINE BILIRUBIN NEGATIVE (NEGATIVE); URINE BLOOD SMALL (NEGATIVE); URINE CLARITY SLIGHTY-CLOUDY (Clear); URINE COLOR YELLOW (YELLOW); URINE GLUCOSE (UA) NEG (Normal); URINE LEUKOCYTE ESTERASE NEG Leu/uL (Negative); URINE NITRATE NEGATIVE (NEGATIVE); URINE PROTEIN 30 mg/dL (NEGATIVE); URINE UROBILINOGEN 0.2-1.0 mg/dL (0.2-1.0)
[2017-07-31 14:08] LABS: ALB/GLOB RATIO 1.4 (1.0-2.1); ALBUMIN 4.3 g/dL (3.5-5.0); ALT/SGPT 40 U/L (21-72); AST/SGOT 25 U/L (17-59); BLOOD UREA NITROGEN 25 mg/dl (9-20); CALCIUM 9.9 mg/dL (8.4-10.2); GFR AFRICAN-AMERICAN > 60; GFR NON-AFRICAN AMERICAN > 60
[2017-07-31 14:18] LABS: BARBITURATES, UR NEGATIVE (NEGATIVE); BENZODIAZEPINES, UR NEGATIVE (NEGATIVE); OPIATES, UR NEGATIVE (NEGATIVE); PHENCYCLIDINE, UR NEGATIVE (NEGATIVE)
[2017-07-31] MEDS ORDERED: Alum-Mag Hydrox-Simethicone Susp (30 mL) PO PRN (15:31)
[2017-07-31] MEDS ORDERED: Magnesium Hydroxide Susp 30 ml UD PO PRN (15:31)
[2017-07-31] MEDS ORDERED: DiphenhydrAMINE 50 mg/ml Inj IM PRN (15:31)
--- NOTE | 2017-07-31 15:55 | RAD ---
PROCEDURE: CHEST RADIOGRAPH, 1 VIEW HISTORY: psych eval COMPARISON: 07/21/2016. FINDINGS: LUNGS: The lungs are clear. PLEURA: No pneumothorax or pleural fluid seen. CARDIOVASCULAR: Normal. OSSEOUS STRUCTURES: No significant abnormalities. VISUALIZED UPPER ABDOMEN: Normal. OTHER FINDINGS: None. IMPRESSION: No active pulmonary disease.
[2017-07-31 17:44] VITALS: BMI 25.9
--- NOTE | 2017-07-31 17:56 | PCM.BM ---
Treatment Plan Problems - Problems identified on initial assessmt Agitated/agressive behavior Date Initiated: 07/31/17 Time Initiated: 17:54 Assessment reference: HP, NA Treatment assets and liabiliti Patient Assests: cooperative, self-reliant, ADL independent, good support system Patient Liabilities: medical problems - Milieu Protocol Maintain good personal hygiene: daily Encourage regular showers, daily Remind patient to perform daily oral care, every shift Assist patient to perform ADL's Conduct patient checks and document Observation sheet: Q15 minutes Maintain personal safety: every shift Educate patient to report safety concerns to staff, every shift Monitor environment for contraband/sharps Medication safety: Monitor for expected outcome, potential side effects: every shift, Assess barriers to learning: every shift, Assess readiness for medication education: every shift
--- NOTE | 2017-07-31 19:03 | PCM.BM ---
<Kathleen Deng - Last Filed: 07/31/17 19:02> Treatment Plan Problems - Problems identified on initial assessmt Agitated/agressive behavior Date Initiated: 07/31/17 Time Initiated: 17:54 Assessment reference: HP, NA Treatment assets and liabiliti Patient Assests: cooperative, self-reliant, ADL independent, good support system Patient Liabilities: medical problems - Milieu Protocol Maintain good personal hygiene: daily Encourage regular showers, daily Remind patient to perform daily oral care, every shift Assist patient to perform ADL's Conduct patient checks and document Observation sheet: Q15 minutes Maintain personal safety: every shift Educate patient to report safety concerns to staff, every shift Monitor environment for contraband/sharps Medication safety: Monitor for expected outcome, potential side effects: every shift, Assess barriers to learning: every shift, Assess readiness for medication education: every shift <Diana Thompson - Last Filed: 08/01/17 12:43> - Diagnosis (1) Major depressive disorder with psychotic features Status: Acute Interventions: Medication management, Individual and group therapy, Psychoeducation 08/01/17 12:45 (2) Generalized anxiety disorder Status: Acute Interventions: Medication management, Individual and group therapy, Psychoeducation 08/01/17 12:45 <Owen Helton - Last Filed: 08/02/17 12:24> Family Contact Family involvement: Family/SO is involved Family contact: Patient agrees to contact, Family has been contacted by patient , Telephone contact initiated by staff Family contact name: James Fang - Brother Family contacted how many times per week?: 2 Family contact comment: [employer] [employer] spoke with pt's brother, James ([phone]), to explain that pt has a Living Will and not POA. Pt's brother understood this, yet had many complaints about his brother's condition. Pt will call James throughout the day asking for help and James does not know how to help.. James reported that pt will "snap" eventually and has not been taking his heart medication and will not get a stress test. - Goals for Treatment Patient goals for treatment: Pt would like his anxiety and "panic attacks" to be minimized with adjustments to his medications. Patient's family/SO goals for treatment: Pt's brother would like the symptoms of his anxiety to be minimized. Discharge/Continuing Care - Education Needs Education Needs: Family Medication, Family Diagnosis/Disease Process, Family Coping Skills, Patient Medication, Patient Diagnosis/Disease Process, Patient Coping Skills, Patient Personal Hygiene/Grooming - Discharge Discharge Criteria: Tolerates medication w/o severe side effects, Free of paranoid thoughts, Free of agitation, Normal sleep pattern, Ability to care for self, Reduction of target symptoms Discharge to:: Home - Additional Comments 08/02/17 12:22 Pt reported that he experienced a "panic attack" this morning where he began saying the word "Hello" over and over again. Pt was unable to provide details about what he had been thinking or precursors to the attack. Pt refused partial level of care as it would interfere with work. Pt was adamant that he would need to leave by Monday. - Treatment Team Participation Discussed with Family/SO: Yes Was Patient/Family/SO present at Treatment Team Meeting: Yes
[2017-08-01] MEDS: Omega-3-Acid Ethyl Esters 1 GM Cap PO SCH (08:30)
--- NOTE | 2017-08-01 11:44 | PCM.PSYCH ---
Initial Psychiatric Evaluation - Initial Psychiatric Evaluation Type of Admission: Voluntary Legal Status: Capacity Chief Complaint (in patient's own words): "I'm not acting like myself." Patient's Reaction to Hospitalization: HPI: 57 yo male w/ h/o MDD w/ psychosis, generalized anxiety, was recently admitted to [facility] and then signed himself out a few days later, presents with continued symptoms of depression, anxiety and bizarre behavior, including repeating words compulsively. He has had intermittent compliance with treatment and medications. He feels hopeless/helpless/worried/anxious. Denies current obsessions/compulsions. Denies current AH/VH/SI/HI, but has expressive passive suicidal ideation in the past. Patient also has sleep/appetite disturbances. He denies acute paranoia, but seems odd at times and could be acutely psychotic given his history of psychosis. PPHx: H/o two prior psychiatric admissions, most recently last week. h/o MDD w / psychosis and AYESHA Psurg: Coronary stent placed in 2004 Famhx: Father from liver CA; Mother from stroke Soc: Umployed; 15 pack year history; denies etoh or illicit drugs ALL: NKDA Current Medications: Active Medications Generic Name Dose Route Start Last Admin Trade Name Freq PRN Reason Stop Dose Admin Acetaminophen 650 mg 07/31/17 15:31 Tylenol 325mg Tab PO Q4 PRN Pain, moderate (4-7) Al Hydrox/Mg Hydrox/Simethicone 30 ml 07/31/17 15:31 Maalox Plus 30 Ml PO Q4 PRN Dyspepsia Aspirin 81 mg 08/01/17 09:00 08/01/17 08:30 Ecotrin PO 81 mg DAILY ENEIDA Administration Atorvastatin Calcium 80 mg 07/31/17 22:00 07/31/17 21:15 Lipitor PO 80 mg HS ENEIDA Administration Carvedilol 6.25 mg 07/31/17 21:00 08/01/17 08:28 Coreg PO 6.25 mg Q12 ENEIDA Administration Clopidogrel Bisulfate 75 mg 08/01/17 09:00 08/01/17 08:31 Plavix PO 75 mg DAILY ENEIDA Administration Diphenhydramine HCl 50 mg 07/31/17 15:31 Benadryl IM Q6 PRN Extrapyramidal S/S Unable PO Diphenhydramine HCl 50 mg 07/31/17 15:31 07/31/17 23:52 Benadryl PO 50 mg Q6 PRN Administration Extrapyramidal Symptoms Escitalopram Oxalate 20 mg 08/01/17 11:45 Lexapro PO DAILY ENEIDA Fenofibrate 145 mg 08/01/17 09:00 08/01/17 08:32 Tricor PO 145 mg DAILY ENEIDA Administration Haloperidol 5 mg 07/31/17 15:31 07/31/17 23:52 Haldol PO 5 mg Q4 PRN Administration Agitation Haloperidol Lactate 5 mg 07/31/17 15:31 Haldol IM Q4 PRN Agitation, Unable to Take PO Lorazepam 2 mg 07/31/17 15:31 Ativan IM Q4 PRN Anxiety/Agitation,Unable PO Lorazepam 1 mg 07/31/17 15:33 07/31/17 23:36 Ativan PO 1 mg Q4 PRN Administration Anxiety/Agitation Losartan Potassium 100 mg 08/01/17 09:00 08/01/17 08:29 Cozaar PO 100 mg DAILY ENEIDA Administration Magnesium Hydroxide 30 ml 07/31/17 15:31 Milk Of Magnesia PO HS PRN Constipation Nicotine 1 patch 08/01/17 11:30 Nicoderm Cq TD DAILY ENEIDA Jwnfc-1-Yyep Ethyl Esters 1 gm 08/01/17 09:00 08/01/17 08:30 Lovaza PO 1 gm DAILY ENEIDA Administration Risperidone 1 mg 07/31/17 22:00 07/31/17 21:15 Risperdal Tab PO 1 mg HS ENEIDA Administration Past Psychiatric History - Past Psychiatric History Previous Treatment History: Inpatient Pertinent Medical Hx (Current Medical&Sleep Prob, Allergies): Allergies Allergy/AdvReac Type Severity Reaction Status Date / Time No Known Allergies Allergy Verified 07/26/17 13:39 Atorvastatin [Lipitor] 80 mg PO HS 07/09/16 Carvedilol [Coreg] 6.25 mg PO Q12 07/09/16 Clopidogrel [Plavix] 75 mg PO DAILY 07/09/16 Losartan [Cozaar] 100 mg PO DAILY 07/09/16 Aspirin [Ecotrin] 81 mg PO DAILY 07/21/16 Fenofibrate [Triglide] 160 mg PO DAILY 07/26/17 [place]-3 Fatty Acids/Fish Oil [Fish Oil 1,000 mg Capsule] 1,000 mg PO DAILY 07/26 Escitalopram [Lexapro] 10 mg PO DAILY 15 Days #15 tab 07/29/17 Gabapentin [Neurontin] 200 mg PO TID 07/31/17 Risperidone [Risperdal] 1 mg PO HS 07/31/17 Review of Systems - Psychiatric Psychiatric: Abnormal Sleep Pattern, Anhedonia, Anxiety, Behavioral Changes, Change in Appetite, Depression, Difficulty Concentrating Mental Status Examination - Personal Presentation Personal Presentation: Looks stated age - Affect Affect: Constricted, Depressed - Motor Activity Motor Activity: Calm - Reliability in Providing Information Reliability in Providing Information: Fair - Speech Speech: Organized - Mood Mood: Depressed, Anxious - Formal Thought Process Formal Thought Process: No Impairment - Hallucinations/Delusions Additional comments: Denies acute AH/VH/paranoia, but seems odd at times, possibly internally preoccupied - Obsessions/Compulsions Obsessions: No Compulsions: No - Cognitive Functions Orientation: Person, Place, Situation, Time Sensorium: Alert Attention/Concentration: Attentive Estimate of Intelligence: Average Judgement: Intact, as evidence by: Insight regarding need for hospitalization Memory: Recent intact, as evidence by: Ability to recall events of the day, Remote intact, as evidenced by: Abilit to recall sig. life events, Remote intact , as evidenced by: Ability to recall historical events - Risk Risk: Diminished functioning - Strength & Assets Inventory Strength & Assets Inventory: Cooperative DSM 5 DX - DSM 5 DSM 5 Diagnosis: Major Depressive Disorder w/ psychotic features; Generalized Anxiety Disorder - Recommended/Plan of Treatment Treatment Recommendations and Plan of Treatment: MDD w/ psychosis; AYESHA -Admit to [facility] -Psychology testing to determine if patient has acute cognitive issues -Stop Neurontin -Increase Lexapro to 20 mg PO Daily -Risperdal 1 mg PO HS -Individual and group therapy -Medicine consult -Disposition planning Projected ELOS: 3-7 days Discharge Plan and Discharge Criteria: Discharge patient when he is psychiatrically stable - Smoking Cessation Smoking Cessation Initiated: No Reason for not providing: Not indicated
[2017-08-01 12:02] LABS: BLOOD UREA NITROGEN 22 mg/dl (9-20); CALCIUM 9.6 mg/dL (8.4-10.2); GFR AFRICAN-AMERICAN > 60; GFR NON-AFRICAN AMERICAN > 60; HDL CHOLESTEROL 35 MG/DL (30-70)
--- NOTE | 2017-08-01 12:09 | CP.PCM.CON ---
History of Present Illness - History of Present Illness History of Present Illness: Phillip is a pleasant 57 yo M with pmhx of anxiety, CAD, HTN, HLD. Presented to [facility] with anxiety exacerbation. He was previously admitted on 07/26/2017 and signed out ama on 07/29/2017 for similar symptoms. Since admission, he reports his anxiety is "controlled". Denies depression, SI/HI or active auditory or visual hallucinations. Denies: CASTILLO/CP/SOB/N/V. Psychiatrist: Dr. Prather at [facility] Pmhx: anxiety, CAD, HTN, HLD Psurg: Coronary stent placed in 2004 Famhx: Father from liver CA; Mother from stroke soc: 15 pack year history; denies etoh or illicit drugs NKDA Meds: Asa, atorvastatin, carvedilol, clopidogrel, fenofibrate, gabapentin, losartan Review of Systems - Constitutional Constitutional: As Per HPI Past Patient History - Past Medical History & Family History Past Medical History?: Yes Pertinent Family History: live ca, stroke - Past Social History Smoking Status: Heavy Smoker > 10 Cigarettes Daily Alcohol: None Drugs: Denies - CARDIAC Hx Cardiac Disorders: Yes Hx Hypercholesterolemia: Yes Hx Hypertension: Yes Other/Comment: CAD with stenting - PULMONARY Hx Tuberculosis: No - NEUROLOGICAL Hx Seizures: No - HEENT Hx HEENT Problems: Yes (L ocular deviation: denies trauma; 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 in "30's 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) Hx Blind: No Other/Comment: left lazy eye - RENAL Hx Chronic Kidney Disease: No - ENDOCRINE/METABOLIC Hx Endocrine Disorders: No - HEMATOLOGICAL/ONCOLOGICAL Hx Human Immunodeficiency Virus (HIV): No - INTEGUMENTARY Hx Dermatological Problems: No - MUSCULOSKELETAL/RHEUMATOLOGICAL Hx Musculoskeletal Disorders: No Hx Falls: No - GASTROINTESTINAL Hx Gastrointestinal Disorders: No Hx Ulcer: No Hx Vomiting: No - GENITOURINARY/GYNECOLOGICAL Hx Sexually Transmitted Disorders: No - PSYCHIATRIC Hx Anxiety: Yes Hx Bipolar Disorder: Yes Hx Depression: Yes Hx Substance Use: No - SURGICAL HISTORY Hx Coronary Stent: Yes (2004) - ANESTHESIA Hx Anesthesia: Yes Hx Anesthesia Reactions: No Meds Allergies/Adverse Reactions: Allergies Allergy/AdvReac Type Severity Reaction Status Date / Time No Known Allergies Allergy Verified 07/26/17 13:39 - Medications Medications: Current Medications Acetaminophen (Tylenol 325mg Tab) 650 mg PO Q4 PRN PRN Reason: Pain, moderate (4-7) Al Hydrox/Mg Hydrox/Simethicone (Maalox Plus 30 Ml) 30 ml PO Q4 PRN PRN Reason: Dyspepsia Aspirin (Ecotrin) 81 mg PO DAILY [facility] Last Admin: 08/01/17 08:30 Dose: 81 mg Atorvastatin Calcium (Lipitor) 80 mg PO HS [facility] Last Admin: 07/31/17 21:15 Dose: 80 mg Carvedilol (Coreg) 6.25 mg PO Q12 [facility] Last Admin: 08/01/17 08:28 Dose: 6.25 mg Clopidogrel Bisulfate (Plavix) 75 mg PO DAILY [facility] Last Admin: 08/01/17 08:31 Dose: 75 mg Diphenhydramine HCl (Benadryl) 50 mg IM Q6 PRN PRN Reason: Extrapyramidal S/S Unable PO Diphenhydramine HCl (Benadryl) 50 mg PO Q6 PRN PRN Reason: Extrapyramidal Symptoms Last Admin: 07/31/17 23:52 Dose: 50 mg Escitalopram Oxalate (Lexapro) 20 mg PO DAILY [facility] Fenofibrate (Tricor) 145 mg PO DAILY [facility] Last Admin: 08/01/17 08:32 Dose: 145 mg Haloperidol (Haldol) 5 mg PO Q4 PRN PRN Reason: Agitation Last Admin: 07/31/17 23:52 Dose: 5 mg Haloperidol Lactate (Haldol) 5 mg IM Q4 PRN PRN Reason: Agitation, Unable to Take PO Lorazepam (Ativan) 2 mg IM Q4 PRN PRN Reason: Anxiety/Agitation,Unable PO Lorazepam (Ativan) 1 mg PO Q4 PRN PRN Reason: Anxiety/Agitation Last Admin: 07/31/17 23:36 Dose: 1 mg Losartan Potassium (Cozaar) 100 mg PO DAILY [facility] Last Admin: 08/01/17 08:29 Dose: 100 mg Magnesium Hydroxide (Milk Of Magnesia) 30 ml PO HS PRN PRN Reason: Constipation Nicotine (Nicoderm Cq) 1 patch TD DAILY [facility] Ycryl-0-Upri Ethyl Esters (Lovaza) 1 gm PO DAILY [facility] Last Admin: 08/01/17 08:30 Dose: 1 gm Risperidone (Risperdal Tab) 1 mg PO HS [facility] Last Admin: 07/31/17 21:15 Dose: 1 mg Physical Exam - Constitutional Appears: No Acute Distress - Eye Exam Eye Exam: EOMI. absent: Normal appearance Pupil Exam: absent: NORMAL ACCOMODATION Additional comments: L ocular Lateral deviation for 10+ years. Reports bifocal vision. Denies blindness. Primary vision via R eye. - Neck Exam Neck exam: Positive for: Full Rom - Respiratory Exam Respiratory Exam: Clear to Auscultation Bilateral, NORMAL BREATHING PATTERN. absent: Wheezes - Cardiovascular Exam Cardiovascular Exam: REGULAR RHYTHM, +S1, +S2 - GI/Abdominal Exam GI & Abdominal Exam: Normal Bowel Sounds, Soft. absent: Tenderness - Neurological Exam Neurological exam: Alert, CN II-XII Intact, Oriented x3 - Psychiatric Exam Psychiatric exam: Normal Affect, Normal Mood Additional comments: negative for SI/HI/hallucinations Results - Vital Signs Recent Vital Signs: Last Vital Signs Temp 97.4 F L 08/01/17 06:00 Pulse 62 08/01/17 08:29 Resp 18 08/01/17 06:00 BP 115/56 L 08/01/17 08:29 Pulse Ox 98 07/31/17 16:35 - Labs Result Diagrams: 07/31/17 13:50 08/01/17 11:36 Labs: Laboratory Results - last 24 hr 07/31/17 07/31/17 07/31/17 13:50 13:50 13:50 WBC 9.2 RBC 5.35 Hgb 15.7 Hct 47.3 MCV 88.3 MCH 29.3 MCHC 33.1 RDW 13.7 Plt Count 210 MPV 9.2 Neut % (Auto) 75.7 H Lymph % (Auto) 14.5 L [place] % (Auto) 9.0 Eos % (Auto) 0.1 Baso % (Auto) 0.7 Neut # (Auto) 6.9 Lymph # (Auto) 1.3 [place] # (Auto) 0.8 Eos # (Auto) 0.0 Baso # (Auto) 0.1 Sodium 142 Potassium 3.9 Chloride 103 Carbon Dioxide 26 Anion Gap 17 BUN 25 H Creatinine 0.6 L Est GFR ( Amer) > 60 Est GFR (Non-Af Amer) > 60 Random Glucose 120 H Calcium 9.9 Total Bilirubin 0.7 AST 25 ALT 40 Alkaline Phosphatase 69 Total Protein 7.3 Albumin 4.3 Globulin 3.1 Albumin/Globulin Ratio 1.4 Triglycerides Cholesterol HDL Cholesterol Urine Color Urine Clarity Urine pH Ur Specific [place] Urine Protein Urine Glucose (UA) Urine Ketones Urine Blood Urine Nitrate Urine Bilirubin Urine Urobilinogen Ur Leukocyte Esterase Urine RBC (Auto) Urine Microscopic WBC Ur Squamous Epith Cells Urine Opiates Screen Negative Urine Methadone Screen Negative Ur Barbiturates Screen Negative Ur Phencyclidine Scrn Negative Ur Amphetamines Screen Negative U Benzodiazepines Scrn Negative U Oth Cocaine Metabols Negative U Cannabinoids Screen Negative Alcohol, Quantitative < 10 07/31/17 08/01/17 13:50 11:36 WBC RBC Hgb Hct MCV MCH MCHC RDW Plt Count MPV Neut % (Auto) Lymph % (Auto) [place] % (Auto) Eos % (Auto) Baso % (Auto) Neut # (Auto) Lymph # (Auto) [place] # (Auto) Eos # (Auto) Baso # (Auto) Sodium 141 Potassium 3.9 Chloride 101 Carbon Dioxide 31 H Anion Gap 13 BUN 22 H Creatinine 0.5 L Est GFR ( Amer) > 60 Est GFR (Non-Af Amer) > 60 Random Glucose 110 Calcium 9.6 Total Bilirubin AST ALT Alkaline Phosphatase Total Protein Albumin Globulin Albumin/Globulin Ratio Triglycerides 106 Cholesterol 119 HDL Cholesterol 35 Urine Color Yellow Urine Clarity Slighty-cloudy Urine pH 5.0 Ur Specific [place] 1.028 Urine Protein 30 Urine Glucose (UA) Neg Urine Ketones Trace Urine Blood Small Urine Nitrate Negative Urine Bilirubin Negative Urine Urobilinogen 0.2-1.0 Ur Leukocyte Esterase Neg Urine RBC (Auto) 19 H Urine Microscopic WBC 1 Ur Squamous Epith Cells < 1 Urine Opiates Screen Urine Methadone Screen Ur Barbiturates Screen Ur Phencyclidine Scrn Ur Amphetamines Screen U Benzodiazepines Scrn U Oth Cocaine Metabols U Cannabinoids Screen Alcohol, Quantitative Assessment & Plan - Assessment and Plan (Free Text) Plan: 57 yo M pmhx of anxiety, CAD, HTN, HLD, presented with acute exacerbation of anxiety 1) Anxiety - Currently managed by Psychiatry - TSH: 0.68; T4: 10.4 - UTOX: neg 2) Dehydration - BUN: 25->22; Cr: 0.6->0.5 - UA: rbc 19; trace ketone - encourage increase PO hydration 3) CAD - Continue ASA, Atorvastatin, Carvedilol, Clopidogrel, Losartan - EKG: consistent with recent EKG - Monitor vitals 4) HTN - Continue: Losartan - Monitor vitals 5) Dyslipidemia - Lipid profile on 08/01/2017: Total Chol: 119; LDL: 68; HDL: 35; T 6) VTE prophylaxis - Pt ambulating
[2017-08-01 12:12] LABS: LDL CHOLESTEROL 68 mg/dL (0-129)
[2017-08-01 12:19] LABS: T4 10.4 ug/dl (5.5-11.0)
--- NOTE | 2017-08-02 03:09 | CARD ---
APPROVED REPORT EKG Measurement Heart [id number] [id number] <Conclusion> Normal sinus rhythm Possible Left atrial enlargement Nonspecific intraventricular block Lateral infarct, age undetermined Inferior infarct, age undetermined Abnormal ECG
[2017-08-02] MEDS: Omega-3-Acid Ethyl Esters 1 GM Cap PO SCH (08:52)
--- NOTE | 2017-08-02 12:24 | PCM.PYCHPN ---
Psychiatric Progress Note - Psychiatric Progress Note Patient seen today, length of contact: Patient evaluated, case discussed w/ team , chart reviewed Patient Chief Complaint: "I'm not acting like myself." Problems Identified/Issues Discussed: Patient reports that he had another "panic attack" this morning, which he describes as repeating the word "hello" over and over again. He denies that it was in response to an obsessive thought. He denies current AH/VH/paranoia/ delusions/IOR. He continues to report feeling depressed and anxious and took a PRN Ativan today. He denies current ideation to harm self or others. He denies current adverse effects to medications. Medication Change: No Medical Record Reviewed: Yes Consults ordered or reviewed: Medicine consult Mental Status Examination - Cognitive Function Orientation: Person, Place, Situation, Time Memory: Intact Attention: WNL Association: [facility] Fund of Knowledge: [facility] Decription of patient's judgement and insights: Fair I/J - Mood Mood: Depressed, Anxious - Affect Affect: Constricted, Depressed - Formal Thought Process Formal Thought Process: No Impairment Psychotic Thoughts and Behaviors: Denies acute AH/VH/paranoia/delusions, but seems oddly related at times - Suicidal Ideation Suicidal Ideation: No - Homicidal Ideation Homicidal Ideation: No Goal/Treatment Plan - Goal/Treatment Plan Need for Continued Stay: Remain at risks for inpatient hospitalization, Discharge may exacerbated symptoms Progress Toward Problem(s) and Goals/Treatment Plan: MDD w/ psychosis; AYESHA -Psychology testing to determine if patient has acute cognitive issues -Continue Lexapro 20 mg PO Daily -Continue Risperdal 1 mg PO HS -Ativan PRN anxiety -Individual and group therapy -Medicine consult -Disposition planning Estimated Date of D/C: 08/04/17
[2017-08-03] MEDS: Omega-3-Acid Ethyl Esters 1 GM Cap PO SCH (08:35)
--- NOTE | 2017-08-03 10:59 | PCM.PYCHPN ---
Psychiatric Progress Note - Psychiatric Progress Note Patient seen today, length of contact: Patient evaluated, case discussed w/ team , chart reviewed Patient Chief Complaint: "I'm very anxious." Problems Identified/Issues Discussed: Patient reports that he continues to be very anxious and states that he continues to have episodes where he repeats the word "hello" over and over again. He denies that it was in response to an obsessive thought. He denies current AH/VH/paranoia/delusions/IOR. We discussed starting Clonazepam for his anxiety. r/b/se reviewed. Patient is requesting to leave the hospital tomorrow. He denies current ideation to harm self or others. He denies current adverse effects to medications. Medication Change: Yes (Start Clonazepam 0.5 mg PO BID) Medical Record Reviewed: Yes Consults ordered or reviewed: Medicine consult Mental Status Examination - Cognitive Function Orientation: Person, Place, Situation, Time Memory: Intact Attention: WNL Association: WNL Fund of Knowledge: WNL Decription of patient's judgement and insights: Fair I/J - Mood Mood: Anxious - Affect Affect: Constricted - Formal Thought Process Formal Thought Process: No Impairment Psychotic Thoughts and Behaviors: Denies acute AH/VH/paranoia/delusions, but seems oddly related at times - Suicidal Ideation Suicidal Ideation: No - Homicidal Ideation Homicidal Ideation: No Goal/Treatment Plan - Goal/Treatment Plan Need for Continued Stay: Remain at risks for inpatient hospitalization, Discharge may exacerbated symptoms Progress Toward Problem(s) and Goals/Treatment Plan: MDD w/ psychosis; AYESHA -Psychology testing to determine if patient has acute cognitive issues -Continue Lexapro 20 mg PO Daily -Continue Risperdal 1 mg PO HS -Start Clonazepam 0.5 mg PO BID -Individual and group therapy -Medicine consult -Disposition planning Estimated Date of D/C: 08/04/17
[2017-08-04] MEDS: Omega-3-Acid Ethyl Esters 1 GM Cap PO SCH (09:01)
--- NOTE | 2017-08-04 09:57 | PCM.PYCHDC ---
Mental Status Examination - Mental Status Examination Orientation: Person, Place, Situation, Time Memory: Intact Mood: Neutral Affect: Broad Speech: Appropriate Attention: WNL Concentration: WNL Association: WNL Fund of Knowledge: WNL Formal Thought Process: No Impairment Description of patient's judgement and insight: Fair I/J Psychotic Thoughts and Behaviors: Denies acute AH/VH/paranoia/delusions Suicidal Ideation: No Current Homicidal Ideation?: No Discharge Summary - Discharge Note Reason for Hospitalization: HPI: 57 yo male w/ h/o MDD w/ psychosis, generalized anxiety, was recently admitted to [facility] and then signed himself out a few days later, presents with continued symptoms of depression, anxiety and bizarre behavior, including repeating words compulsively. He has had intermittent compliance with treatment and medications. He feels hopeless/helpless/worried/anxious. Denies current obsessions/compulsions. Denies current AH/VH/SI/HI, but has expressive passive suicidal ideation in the past. Patient also has sleep/appetite disturbances. He denies acute paranoia, but seems odd at times and could be acutely psychotic given his history of psychosis. PPHx: H/o two prior psychiatric admissions, most recently last week. h/o MDD w / psychosis and AYESHA Psurg: Coronary stent placed in 2004 Famhx: Father from liver CA; Mother from stroke Soc: Umployed; 15 pack year history; denies etoh or illicit drugs ALL: NKDA Consultations:: List each consultation separately and include: 1. Reason for request. 2. Findings. 3. Follow-up Consultations: Medicine consult, Psychology consult Summary of Hospital Course include:: 1. Description of specific treatment plan utilized for patients during their course of treatmen. 2. Summarize the time- course for resolution of acute symptoms and/or regressed behaviors. 3. Describe issues identified and worked on during hospitalization. 4. Describe medication utilized. 5. Describe medical problems identified and treated. 6. Reassessment of suicide risk Summary of Hospital Course: Patient was admitted to the psychiatry unit. Individual and group therapy were provided. Patient was stabilized on Klonopin 0.5 mg PO BID, Lexapro 20 mg PO Daily and Risperdal 1 mg PO HS. Patient has improved clinically and will be discharged to home w/ outpatient follow-up as patient is requesting to be discharged at this time. - Diagnosis (1) Major depressive disorder with psychotic features Current Visit: Yes Status: Chronic (2) Generalized anxiety disorder Current Visit: Yes Status: Chronic - Final Diagnosis (DSM 5) Condition upon Discharge: STABLE DSM 5: Major Depressive Disorder w/ Psychotic Features; Generalized Anxiety Disorder Disposition: HOME/ ROUTINE Follow-up Treatment Plan: MDD w/ psychosis; AYESHA -Continue Lexapro 20 mg PO Daily -Continue Risperdal 1 mg PO HS -Continue Clonazepam 0.5 mg PO BID -Discharge w/ outpatient follow-up Prescriptions/Medication Reconciliation: clonazePAM [Klonopin] 0.5 mg PO BID #60 tab Escitalopram [Lexapro] 20 mg PO DAILY #30 tab Nicotine 21 mg/24 hr [Nicoderm Cq] 1 patch TD DAILY #30 patch [id number] Ethyl Esters 1 GM [Lovaza] 1 gm PO DAILY #30 sgl Risperidone [Risperdal] 1 mg PO HS #30 tablet - Smoking Cessation Smoking Cessation Medication prescribed: Yes - Antipsychotic Medications Pt discharged on 2 or more routine antipsychotic medications: No
--- NOTE | 2017-08-04 10:54 | CP.PCM.CON ---
History of Present Illness - History of Present Illness History of Present Illness: Pt is a 57 year old male admitted to [facility] and referred to the sports book writer for evaluation. On the DRS, pt scored an overall score which fell within normal liimits. Pt's Attention, Construction, Conceptaulization, memory and Initiation skills all fell within normal limits. No deficits were evident. Pt acknowledged significant anxiety prior to admission likely influencing his cognitive functioning prior to admission. Overall 127 Attention 32 Consruction 4 Conceptualization 35 Initiation 34 memory 22 Past Patient History - Past Medical History & Family History Past Medical History?: Yes - Past Social History Smoking Status: Heavy Smoker > 10 Cigarettes Daily Alcohol: None Drugs: Denies - CARDIAC Hx Cardiac Disorders: Yes Hx Hypercholesterolemia: Yes Hx Hypertension: Yes Other/Comment: CAD with stenting - PULMONARY Hx Tuberculosis: No - NEUROLOGICAL Hx Seizures: No - HEENT Hx HEENT Problems: Yes (L ocular deviation: denies trauma; 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 in "30's 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) Hx Blind: No Other/Comment: left lazy eye - RENAL Hx Chronic Kidney Disease: No - ENDOCRINE/METABOLIC Hx Endocrine Disorders: No - HEMATOLOGICAL/ONCOLOGICAL Hx Human Immunodeficiency Virus (HIV): No - INTEGUMENTARY Hx Dermatological Problems: No - MUSCULOSKELETAL/RHEUMATOLOGICAL Hx Musculoskeletal Disorders: No Hx Falls: No - GASTROINTESTINAL Hx Gastrointestinal Disorders: No Hx Ulcer: No Hx Vomiting: No - GENITOURINARY/GYNECOLOGICAL Hx Sexually Transmitted Disorders: No - PSYCHIATRIC Hx Anxiety: Yes Hx Bipolar Disorder: Yes Hx Depression: Yes Hx Substance Use: No - SURGICAL HISTORY Hx Coronary Stent: Yes (2004) - ANESTHESIA Hx Anesthesia: Yes Hx Anesthesia Reactions: No Meds Home Medications: Home Medication List Medication Instructions Recorded Confirmed Type Escitalopram [Lexapro] 20 mg PO DAILY #30 tab 08/04/17 Rx Nicotine 21 mg/24 hr [Nicoderm Cq] 1 patch TD DAILY #30 patch 08/04/17 Rx Mdehw-0-[id number] Ethyl Esters 1 GM 1 gm PO DAILY #30 sgl 08/04/17 Rx [Lovaza] Risperidone [Risperdal] 1 mg PO HS #30 tablet 08/04/17 Rx clonazePAM [Klonopin] 0.5 mg PO BID #60 tab 08/04/17 Rx Allergies/Adverse Reactions: Allergies Allergy/AdvReac Type Severity Reaction Status Date / Time No Known Allergies Allergy Verified 07/26/17 13:39 - Medications Medications: Current Medications Aspirin (Ecotrin) 81 mg PO DAILY [facility] Last Admin: 08/04/17 08:59 Dose: 81 mg Atorvastatin Calcium (Lipitor) 80 mg PO HS [facility] Last Admin: 08/03/17 21:09 Dose: 80 mg Carvedilol (Coreg) 6.25 mg PO Q12 [facility] Last Admin: 08/04/17 08:57 Dose: 6.25 mg Clonazepam (Klonopin) 0.5 mg PO BID [facility] Last Admin: 08/04/17 09:08 Dose: 0.5 mg Clopidogrel Bisulfate (Plavix) 75 mg PO DAILY [facility] Last Admin: 08/04/17 09:03 Dose: 75 mg Escitalopram Oxalate (Lexapro) 20 mg PO DAILY [facility] Last Admin: 08/04/17 09:01 Dose: 20 mg Fenofibrate (Tricor) 145 mg PO DAILY [facility] Last Admin: 08/04/17 09:04 Dose: 145 mg Losartan Potassium (Cozaar) 100 mg PO DAILY [facility] Last Admin: 08/04/17 08:58 Dose: 100 mg Nicotine (Nicoderm Cq) 1 patch TD DAILY [facility] Last Admin: 08/04/17 09:02 Dose: 1 patch Atpyr-0-Ffbk Ethyl Esters (Lovaza) 1 gm PO DAILY [facility] Last Admin: 08/04/17 09:01 Dose: 1 gm Risperidone (Risperdal Tab) 1 mg PO HS [facility] Last Admin: 08/03/17 21:09 Dose: 1 mg Results - Vital Signs Recent Vital Signs: Last Vital Signs Temp 97.6 F 08/04/17 06:00 Pulse 60 08/04/17 08:58 Resp 18 08/04/17 06:00 BP 116/70 08/04/17 08:58 Pulse Ox 98 07/31/17 16:35 - Labs Result Diagrams: 07/31/17 13:50 08/01/17 11:36
--- NOTE | 2017-08-04 13:35 | PCM.PYCHPN ---
Psychiatric Progress Note - Psychiatric Progress Note Patient seen today, length of contact: Patient evaluated, case discussed w/ team , chart reviewed Patient Chief Complaint: "I'm very anxious." Problems Identified/Issues Discussed: Patient reports worsening anxiety. He is observed talking to himself and is internally preoccupied at times. He denies AH/VH/paranioa/delusions but seems oddly related at times. He denies obsessive thoughts or compulsions. He denies current ideation to harm self or others. He denies current adverse effects to medications. Medication Change: Yes (Increase Clonazepam and Risperdal) Medical Record Reviewed: Yes Consults ordered or reviewed: Medicine consult, Psychology consult Mental Status Examination - Cognitive Function Orientation: Person, Place, Situation, Time Memory: Intact Attention: WNL Concentration: WNL Association: WNL Fund of Knowledge: [facility] Decription of patient's judgement and insights: Fair I/J - Mood Mood: Depressed, Anxious - Affect Affect: Constricted - Speech Speech: Appropriate - Formal Thought Process Formal Thought Process: No Impairment Psychotic Thoughts and Behaviors: Denies acute AH/VH/paranoia/delusions; but patient is oddly related at times and talks to himself - Suicidal Ideation Suicidal Ideation: No - Homicidal Ideation Homicidal Ideation: No Goal/Treatment Plan - Goal/Treatment Plan Need for Continued Stay: Remain at risks for inpatient hospitalization, Discharge may exacerbated symptoms Progress Toward Problem(s) and Goals/Treatment Plan: MDD w/ psychosis; AYESHA -Continue Lexapro 20 mg PO Daily -Increase Risperdal to 2 mg PO HS -Increase Clonazepam to 0.5 mg PO Daily/ 1 mg PO Daily@1700 -Individual and group therapy -Disposition planning Estimated Date of D/C: 08/10/17
[2017-08-04] MEDS ORDERED: Alum-Mag Hydrox-Simethicone Susp (30 mL) PO PRN (13:37)
[2017-08-04] MEDS ORDERED: Magnesium Hydroxide Susp 30 ml UD PO PRN (13:37)
[2017-08-04] MEDS ORDERED: DiphenhydrAMINE 50 mg/ml Inj IM PRN (13:37)
[2017-08-05] MEDS: Omega-3-Acid Ethyl Esters 1 GM Cap PO SCH (08:18)
--- NOTE | 2017-08-05 10:09 | PCM.PYCHPN ---
Psychiatric Progress Note - Psychiatric Progress Note Patient seen today, length of contact: Patient evaluated, case discussed w/ team , chart reviewed Patient Chief Complaint: "I'm very anxious." Problems Identified/Issues Discussed: Patient continues to be very anxious, is observed wandering the hallways saying "hello" over and over again for unclear reason, could be acutely psychotic although patient denies overt psychotic symptoms when questioned. He denies obsessions/compulsions. He continues to be oddly related and seems internally preoccupied. No adverse effects to medications reported. NO SI/HI. Medication Change: Yes (Increase Risperdal to 1 mg PO AM/ 2 mg PO HS) Medical Record Reviewed: Yes Consults ordered or reviewed: Medicine consult, Psychology consult Mental Status Examination - Cognitive Function Orientation: Person, Place, Situation, Time Memory: Intact Attention: WNL Concentration: WNL Association: WNL Fund of Knowledge: [facility] Decription of patient's judgement and insights: Fair I/J - Mood Mood: Depressed, Anxious - Affect Affect: Constricted - Speech Speech: Appropriate - Formal Thought Process Formal Thought Process: Loosening of associations Psychotic Thoughts and Behaviors: Denies acute AH/VH/paranoia/delusions; but patient is oddly related at times and talks to himself; could be internally preoccupied/psychotic - Suicidal Ideation Suicidal Ideation: No - Homicidal Ideation Homicidal Ideation: No Goal/Treatment Plan - Goal/Treatment Plan Need for Continued Stay: Remain at risks for inpatient hospitalization, Discharge may exacerbated symptoms Progress Toward Problem(s) and Goals/Treatment Plan: MDD w/ psychosis; AYESHA -Continue Lexapro 20 mg PO Daily -Increase Risperdal to 1 mg PO AM/ 2 mg PO HS -Continue Clonazepam 0.5 mg PO Daily/ 1 mg PO Daily@1700 -Individual and group therapy -Disposition planning Estimated Date of D/C: 08/10/17
[2017-08-06] MEDS: Omega-3-Acid Ethyl Esters 1 GM Cap PO SCH (08:55)
--- NOTE | 2017-08-06 11:50 | PCM.PYCHPN ---
Psychiatric Progress Note - Psychiatric Progress Note Patient seen today, length of contact: Patient evaluated, case discussed w/ team , chart reviewed Patient Chief Complaint: "I'm very anxious." Problems Identified/Issues Discussed: Patient continues to be very anxious, but seems calmer than previous days and is less intrusive towards others. He continues to have poor insight and is oddly related at times, possibly internally preoccupied although he continues to denies AH/VH/paranoia. No adverse effects to medications reported. NO SI/ HI. Medication Change: Yes (Increase Clonazepam to 1 mg PO BID) Medical Record Reviewed: Yes Consults ordered or reviewed: Medicine consult, Psychology consult Mental Status Examination - Cognitive Function Orientation: Person, Place, Situation, Time Memory: Intact Attention: WNL Concentration: WNL Association: WNL Fund of Knowledge: [facility] Decription of patient's judgement and insights: Fair I/J - Mood Mood: Depressed, Anxious - Affect Affect: Constricted - Speech Speech: Appropriate - Formal Thought Process Formal Thought Process: Loosening of associations Psychotic Thoughts and Behaviors: Denies acute AH/VH/paranoia/delusions; but patient is oddly related at times and talks to himself; could be internally preoccupied/psychotic - Suicidal Ideation Suicidal Ideation: No - Homicidal Ideation Homicidal Ideation: No Goal/Treatment Plan - Goal/Treatment Plan Need for Continued Stay: Remain at risks for inpatient hospitalization, Discharge may exacerbated symptoms Progress Toward Problem(s) and Goals/Treatment Plan: MDD w/ psychosis; AYESHA -Continue Lexapro 20 mg PO Daily -Continue Risperdal 1 mg PO AM/ 2 mg PO HS -Increase Clonazepam to 1 mg PO BID -Individual and group therapy -Disposition planning Estimated Date of D/C: 08/10/17
[2017-08-07] MEDS: Omega-3-Acid Ethyl Esters 1 GM Cap PO SCH (08:19)
--- NOTE | 2017-08-07 14:05 | PCM.PYCHPN ---
Psychiatric Progress Note - Psychiatric Progress Note Patient seen today, length of contact: Patient evaluated, case discussed w/ team , chart reviewed Patient Chief Complaint: "I'm very anxious." Problems Identified/Issues Discussed: Patient continues to be very anxious, but reports that he feels overly tired in the morning. He continues to have poor insight and is oddly related at times, possibly internally preoccupied although he continues to denies AH/VH/paranoia. No adverse effects to medications reported. NO SI/HI. Medication Change: Yes (Lower Klonopin to 1 mg PO Daily@1700) Medical Record Reviewed: Yes Mental Status Examination - Cognitive Function Orientation: Person, Place, Situation, Time Memory: Intact Attention: WNL Concentration: WNL Association: WNL Fund of Knowledge: [facility] Decription of patient's judgement and insights: Fair I/J - Mood Mood: Depressed, Anxious - Affect Affect: Constricted - Speech Speech: Appropriate - Formal Thought Process Formal Thought Process: Loosening of associations Psychotic Thoughts and Behaviors: Denies acute AH/VH/paranoia/delusions; but patient is oddly related at times and talks to himself; could be internally preoccupied/psychotic - Suicidal Ideation Suicidal Ideation: No - Homicidal Ideation Homicidal Ideation: No Goal/Treatment Plan - Goal/Treatment Plan Need for Continued Stay: Remain at risks for inpatient hospitalization, Discharge may exacerbated symptoms Progress Toward Problem(s) and Goals/Treatment Plan: MDD w/ psychosis; AYESHA -Continue Lexapro 20 mg PO Daily -Continue Risperdal -Lower Clonazepam to 1 mg PO Daily@1700 -Individual and group therapy -Disposition planning Estimated Date of D/C: 08/10/17
[2017-08-08] MEDS: Omega-3-Acid Ethyl Esters 1 GM Cap PO SCH (08:28)
--- NOTE | 2017-08-08 11:02 | PCM.PYCHPN ---
Psychiatric Progress Note - Psychiatric Progress Note Patient seen today, length of contact: Patient evaluated, case discussed w/ team , chart reviewed Patient Chief Complaint: "I'm very anxious." Problems Identified/Issues Discussed: Patient continues to be anxious, but seems calmer and less intrusive. Risperdal will be switched to HS, due to patient's concerns that he is being overly tired in the morning. He continues to denies AH/VH/paranoia, although he continues to be oddly related. No adverse effects to medications reported. NO SI/HI. Medication Change: Yes (Change Risperdal to 4 mg PO HS) Medical Record Reviewed: Yes Consults ordered or reviewed: Medicine consult, Psychology consult Mental Status Examination - Cognitive Function Orientation: Person, Place, Situation, Time Memory: Intact Attention: WNL Concentration: WNL Association: WNL Fund of Knowledge: [facility] Decription of patient's judgement and insights: Fair I/J - Mood Mood: Depressed, Anxious - Affect Affect: Constricted - Speech Speech: Appropriate - Formal Thought Process Formal Thought Process: Loosening of associations Psychotic Thoughts and Behaviors: Denies acute AH/VH/paranoia/delusions; but patient is oddly related at times and talks to himself; could be internally preoccupied/psychotic - Suicidal Ideation Suicidal Ideation: No - Homicidal Ideation Homicidal Ideation: No Goal/Treatment Plan - Goal/Treatment Plan Need for Continued Stay: Remain at risks for inpatient hospitalization, Discharge may exacerbated symptoms Progress Toward Problem(s) and Goals/Treatment Plan: MDD w/ psychosis; AYESHA -Continue Lexapro 20 mg PO Daily -Change Risperdal to 4 mg OP HS -Lower Clonazepam to 1 mg PO Daily@1700 -Individual and group therapy -Disposition planning Estimated Date of D/C: 08/11/17
[2017-08-09] MEDS: Omega-3-Acid Ethyl Esters 1 GM Cap PO SCH (08:51)
--- NOTE | 2017-08-09 11:30 | PCM.PYCHPN ---
Psychiatric Progress Note - Psychiatric Progress Note Patient seen today, length of contact: Patient evaluated, case discussed w/ team , chart reviewed Patient Chief Complaint: "I'm very anxious." Problems Identified/Issues Discussed: Patient continues to be anxious w/ compulsions to repeat certain things over and over, such as "Oh My God, No" or "hello" or "no, no, no, no". He denies having any obsessive thoughts and does not know why he has to repeat these phrases, but has a hard time controlling himself. We discussed tapering him off Lexapro and starting Clomipramine. He continues to feel anxious and requested to take Klonopin again in the morning. Denies acute AH/VH/paranoia/ but continues to be bizarre and oddly related at times. No SI/HI. Medication Change: Yes (Stop Lexapro, Start Clomipramine; Increase Klonopin to 0.5 mg PO Q12) Medical Record Reviewed: Yes Consults ordered or reviewed: Medicine consult, Psychology consult Mental Status Examination - Cognitive Function Orientation: Person, Place, Situation, Time Memory: Intact Attention: WNL Concentration: WNL Association: [facility] Fund of Knowledge: [facility] Decription of patient's judgement and insights: Fair I/J - Mood Mood: Depressed, Anxious - Affect Affect: Constricted - Speech Speech: Appropriate - Formal Thought Process Formal Thought Process: Loosening of associations Psychotic Thoughts and Behaviors: Denies acute AH/VH/paranoia/delusions; but patient is oddly related at times - Suicidal Ideation Suicidal Ideation: No - Homicidal Ideation Homicidal Ideation: No Goal/Treatment Plan - Goal/Treatment Plan Need for Continued Stay: Remain at risks for inpatient hospitalization, Discharge may exacerbated symptoms Progress Toward Problem(s) and Goals/Treatment Plan: MDD w/ psychosis; AYESHA -Start Clomipramine 25 mg PO Daily -Risperdal 4 mg PO HS -Klonopin 0.5 mg PO BID -Individual and group therapy -Disposition planning Estimated Date of D/C: 08/11/17
--- NOTE | 2017-08-10 07:18 | CP.PCM.PN ---
Subjective - Date & Time of Evaluation Date of Evaluation: 08/10/17 Time of Evaluation: 07:13 - Subjective Subjective: Called to evaluate this patient with chest pain on coughing. he refers non productive cough, no fever, no SOB Exam: General: Sitting in bed, No respiratory distress Resp: Clear lung abdi, CVS: RRR, no murmurs nor gallop Abdomen: Nontender Ext: no edema non tender Neuro: Non focal A&P #. Bronchitis r/o Pneumonia and Influenza - follow Rapid Influenza test - Follow CXR - Jensenitusprakash Hinojosa MD Objective - Vital Signs/Intake and Output Vital Signs (last 24 hours): Temp Pulse Resp BP Pulse Ox 97.1 F L 73 18 139/77 98 08/10/17 06:00 08/10/17 06:00 08/10/17 06:00 08/10/17 06:00 07/31/17 16:35 - Medications Medications: Current Medications Acetaminophen (Tylenol 325mg Tab) 650 mg PO Q4 PRN PRN Reason: Pain, moderate (4-7) Al Hydrox/Mg Hydrox/Simethicone (Maalox Plus 30 Ml) 30 ml PO Q4 PRN PRN Reason: Dyspepsia Aspirin (Ecotrin) 81 mg PO DAILY [facility] Last Admin: 08/09/17 08:51 Dose: 81 mg Atorvastatin Calcium (Lipitor) 80 mg PO HS [facility] Last Admin: 08/09/17 21:18 Dose: 80 mg Carvedilol (Coreg) 6.25 mg PO Q12 [facility] Last Admin: 08/09/17 08:50 Dose: 6.25 mg Clomipramine HCl (Anafranil) 25 mg PO DAILY [facility] Last Admin: 08/09/17 08:49 Dose: 25 mg Clonazepam (Klonopin) 0.5 mg PO BID [facility] Last Admin: 08/09/17 17:55 Dose: 0.5 mg Clopidogrel Bisulfate (Plavix) 75 mg PO DAILY [facility] Last Admin: 08/09/17 08:51 Dose: 75 mg Diphenhydramine HCl (Benadryl) 50 mg IM Q6 PRN PRN Reason: Extrapyramidal S/S Unable PO Diphenhydramine HCl (Benadryl) 50 mg PO Q6 PRN PRN Reason: Extrapyramidal Symptoms Fenofibrate (Tricor) 145 mg PO DAILY [facility] Last Admin: 08/09/17 08:51 Dose: 145 mg Guaifenesin/Dextromethorphan (Robitussin Dm) 10 ml PO Q6 PRN PRN Reason: Cough Haloperidol (Haldol) 5 mg PO Q4 PRN PRN Reason: Agitation Haloperidol Lactate (Haldol) 5 mg IM Q4 PRN PRN Reason: Agitation, Unable to Take PO Lorazepam (Ativan) 2 mg IM Q4 PRN PRN Reason: Anxiety/Agitation,Unable PO Losartan Potassium (Cozaar) 100 mg PO DAILY [facility] Last Admin: 08/09/17 08:51 Dose: 100 mg Magnesium Hydroxide (Milk Of Magnesia) 30 ml PO HS PRN PRN Reason: Constipation Nicotine (Nicoderm Cq) 1 patch TD DAILY [facility] Last Admin: 08/09/17 08:49 Dose: 1 patch Dvdnf-4-Upuo Ethyl Esters (Lovaza) 1 gm PO DAILY [facility] Last Admin: 08/09/17 08:51 Dose: 1 gm Risperidone (Risperdal Tab) 4 mg PO HS [facility] Last Admin: 08/09/17 21:18 Dose: 4 mg - Labs Labs: 07/31/17 13:50 08/01/17 11:36
--- NOTE | 2017-08-10 08:10 | PCM.BM ---
Treatment Plan Problems - Problems identified on initial assessmt Agitated/agressive behavior Date Initiated: 07/31/17 Time Initiated: 17:54 Assessment reference: HP, NA Treatment assets and liabiliti Patient Assests: cooperative, self-reliant, ADL independent, good support system Patient Liabilities: medical problems - Milieu Protocol Maintain good personal hygiene: daily Encourage regular showers, daily Remind patient to perform daily oral care, every shift Assist patient to perform ADL's Conduct patient checks and document Observation sheet: Q15 minutes Maintain personal safety: every shift Educate patient to report safety concerns to staff, every shift Monitor environment for contraband/sharps Medication safety: Monitor for expected outcome, potential side effects: every shift, Assess barriers to learning: every shift, Assess readiness for medication education: every shift Milieu Narrative: MDD w/ psychosis; AYESHA -Start Clomipramine 25 mg PO Daily -Risperdal 4 mg PO HS -Klonopin 0.5 mg PO BID -Individual and group therapy -Disposition planning Family Contact Family involvement: Family/SO is involved Family contact: Patient agrees to contact, Family has been contacted by patient , Telephone contact initiated by staff Family contact name: James Fang - Goals for Treatment Patient goals for treatment: Pt would like his anxiety and "panic attacks" to be minimized with adjustments to his medications. Patient's family/SO goals for treatment: Pt's brother would like the symptoms of his anxiety to be minimized. Discharge/Continuing Care - Education Needs Education Needs: Family Medication, Family Diagnosis/Disease Process, Family Coping Skills, Patient Medication, Patient Diagnosis/Disease Process, Patient Coping Skills, Patient Personal Hygiene/Grooming - Discharge Discharge Criteria: Tolerates medication w/o severe side effects, Free of paranoid thoughts, Free of agitation, Normal sleep pattern, Ability to care for self, Reduction of target symptoms Discharge to:: Home - Additional Comments 08/02/17 12:22 Pt reported that he experienced a "panic attack" this morning where he began saying the word "Hello" over and over again. Pt was unable to provide details about what he had been thinking or precursors to the attack. Pt refused partial level of care as it would interfere with work. Pt was adamant that he would need to leave by Monday. - Treatment Team Participation Patient/Family/SO Statement: MDD w/ psychosis; AYESHA -Start Clomipramine 25 mg PO Daily -Risperdal 4 mg PO HS -Klonopin 0.5 mg PO BID -Individual and group therapy -Disposition planning Discussed with Family/SO: Yes Was Patient/Family/SO present at Treatment Team Meeting: Yes Treatment Plan Review - Problem Agitated/agressive behavior Time Initiated: 17:54 - Discharge / Continuing Care Discharge to:: Home Behavioral Health Services: Partial hospital Health Needs: Medications/Rx (Pt presented at treatment team repeating "Oh God no" over and over again with quick, shallow breathing. Pt still lacks insight, but seems more agreeable to PHP, but reported that he does not feel safe leaving the hospital. Dr. Thompson recommended that pt stay through the weekend so his Anafranil can be titrated up. Dr. Thompson also discussed starting the Klonopin on again in the AM as pt still appeares very anxious. )
[2017-08-10] MEDS: Omega-3-Acid Ethyl Esters 1 GM Cap PO SCH (08:55)
--- NOTE | 2017-08-10 11:14 | PCM.PYCHPN ---
Psychiatric Progress Note - Psychiatric Progress Note Patient seen today, length of contact: Patient evaluated, case discussed w/ team , chart reviewed Patient Chief Complaint: "I'm very anxious." Problems Identified/Issues Discussed: Patient continues to be anxious w/ compulsions to repeat certain phrases over and over, such as "Oh My God, No" or "hello" or "no, no, no, no". He states that he is unable to control these compulsions and can not identify any thought associated with the compulsions. Denies acute AH/VH/paranoia/ but continues to be bizarre and oddly related at times. No SI/HI. Medication Change: No Medical Record Reviewed: Yes Consults ordered or reviewed: Medicine consult, Psychology consult Mental Status Examination - Cognitive Function Orientation: Person, Place, Situation, Time Memory: Intact Attention: WNL Concentration: WNL Association: WNL Fund of Knowledge: [facility] Decription of patient's judgement and insights: Fair I/J - Mood Mood: Depressed, Anxious - Affect Affect: Constricted - Speech Speech: Appropriate - Formal Thought Process Formal Thought Process: Loosening of associations Psychotic Thoughts and Behaviors: Denies acute AH/VH/paranoia/delusions; but patient is oddly related at times - Suicidal Ideation Suicidal Ideation: No - Homicidal Ideation Homicidal Ideation: No Goal/Treatment Plan - Goal/Treatment Plan Need for Continued Stay: Remain at risks for inpatient hospitalization, Discharge may exacerbated symptoms Progress Toward Problem(s) and Goals/Treatment Plan: MDD w/ psychosis; AYESHA -Continue Clomipramine 25 mg PO Daily, will continue to titrate -Risperdal 4 mg PO HS -Klonopin 0.5 mg PO BID -Individual and group therapy -Disposition planning Estimated Date of D/C: 08/15/17
--- NOTE | 2017-08-10 11:27 | RAD ---
HISTORY: Coughing with chest pain COMPARISON: Portable chest 07/31/2017. FINDINGS: LUNGS: No active pulmonary disease. PLEURA: No significant pleural effusion identified, no pneumothorax apparent. CARDIOVASCULAR: Normal. OSSEOUS STRUCTURES: No significant abnormalities. VISUALIZED UPPER ABDOMEN: Normal. OTHER FINDINGS: None. IMPRESSION: No interval acute cardiopulmonary disease appreciated.
[2017-08-10] MEDS: guaiFENesin DM 200 mg-20 mg/10 ml UD PO PRN (17:40)
[2017-08-11] MEDS: guaiFENesin DM 200 mg-20 mg/10 ml UD PO PRN (08:28)
[2017-08-11] MEDS: Omega-3-Acid Ethyl Esters 1 GM Cap PO SCH (08:31)
--- NOTE | 2017-08-11 11:39 | PCM.PYCHPN ---
Psychiatric Progress Note - Psychiatric Progress Note Patient seen today, length of contact: Patient evaluated, case discussed w/ team , chart reviewed Patient Chief Complaint: "I'm very anxious." Problems Identified/Issues Discussed: Patient reports that he is starting to feel less anxious and less pressured to compulsively repeat phrases. He denies current obsessive thoughts. Denies acute AH/VH/paranoia, but continues to be bizarre and oddly related at times. No SI/HI. Medication Change: Yes (Increase Clomipramine to 50 mg PO Daily on 08/12) Medical Record Reviewed: Yes Consults ordered or reviewed: Medicine consult, Psychology consult Mental Status Examination - Cognitive Function Orientation: Person, Place, Situation, Time Memory: Intact Attention: WNL Concentration: WNL Association: WNL Fund of Knowledge: [facility] [place] Decription of patient's judgement and insights: Fair I/J - Mood Mood: Anxious - Affect Affect: Constricted - Speech Speech: Appropriate - Formal Thought Process Formal Thought Process: Loosening of associations Psychotic Thoughts and Behaviors: Denies acute AH/VH/paranoia/delusions; but patient is oddly related at times - Suicidal Ideation Suicidal Ideation: No - Homicidal Ideation Homicidal Ideation: No Goal/Treatment Plan - Goal/Treatment Plan Need for Continued Stay: Remain at risks for inpatient hospitalization, Discharge may exacerbated symptoms Progress Toward Problem(s) and Goals/Treatment Plan: MDD w/ psychosis; AYESHA -Increase Clomipramine to 50 mg PO Daily on 08/12 -Risperdal 4 mg PO HS -Klonopin 0.5 mg PO BID -Individual and group therapy -Disposition planning- likely discharge on Monday if patient continues to improve clinically Estimated Date of D/C: 08/14/17
[2017-08-12] MEDS: Omega-3-Acid Ethyl Esters 1 GM Cap PO SCH (08:17)
--- NOTE | 2017-08-12 13:25 | PCM.PYCHPN ---
Psychiatric Progress Note - Psychiatric Progress Note Patient seen today, length of contact: Patient evaluated, case discussed w/ team , chart reviewed Patient Chief Complaint: I am less anxious today Problems Identified/Issues Discussed: pt evaluated in day room, reported mood less anxious, constricted affect, no reported changes in sleep or appetite, no side effects of medications denied any current suicidal or homicidal ideations denied perceptual disturbances DSM 5 Symptoms Update: OCD generalized anxiety disorder Medication Change: No Medical Record Reviewed: Yes Mental Status Examination - Cognitive Function Orientation: Person, Place, Situation, Time Memory: Intact Attention: WNL Concentration: WNL Association: WNL Fund of Knowledge: WNL - Mood Mood: Anxious - Affect Affect: Constricted - Speech Speech: Appropriate - Formal Thought Process Formal Thought Process: Loosening of associations - Suicidal Ideation Suicidal Ideation: No - Homicidal Ideation Homicidal Ideation: No Goal/Treatment Plan - Goal/Treatment Plan Need for Continued Stay: Remain at risks for inpatient hospitalization, Discharge may exacerbated symptoms Progress Toward Problem(s) and Goals/Treatment Plan: continue current medications group and supportive therapy Estimated Date of D/C: 08/14/17
[2017-08-13] MEDS: Omega-3-Acid Ethyl Esters 1 GM Cap PO SCH (09:28)
--- NOTE | 2017-08-13 10:22 | PCM.PYCHPN ---
Psychiatric Progress Note - Psychiatric Progress Note Patient seen today, length of contact: Patient evaluated, case discussed w/ team , chart reviewed Patient Chief Complaint: I am feeling less anxious Problems Identified/Issues Discussed: pt evaluated in bed, reported mood less anxious,continues to present with constricted affect, no reported changes in sleep or appetite, no side effects of medications denied any current suicidal or homicidal ideations denied perceptual disturbances DSM 5 Symptoms Update: depression OCD Medication Change: No Medical Record Reviewed: Yes Mental Status Examination - Cognitive Function Orientation: Person, Place, Situation, Time Memory: Intact Attention: WNL Concentration: WNL Association: WNL Fund of Knowledge: WNL - Mood Mood: Anxious - Affect Affect: Constricted - Speech Speech: Appropriate - Formal Thought Process Formal Thought Process: Circumstantial - Suicidal Ideation Suicidal Ideation: No - Homicidal Ideation Homicidal Ideation: No Goal/Treatment Plan - Goal/Treatment Plan Need for Continued Stay: Remain at risks for inpatient hospitalization, Discharge may exacerbated symptoms Progress Toward Problem(s) and Goals/Treatment Plan: clomipramine increased to 75mg continue with risperidone and klonopin group and supportive therapy Estimated Date of D/C: 08/14/17
[2017-08-14 05:52] VITALS: BP 131/79; PULSE 72; RESP 18; TEMP 97.8
[2017-08-14] MEDS: Omega-3-Acid Ethyl Esters 1 GM Cap PO SCH (08:30)
--- NOTE | 2017-08-14 09:27 | PCM.PYCHDC ---
Mental Status Examination - Mental Status Examination Orientation: Person, Place, Situation, Time Memory: Intact Mood: Neutral Affect: Broad Speech: Appropriate Attention: WNL Concentration: WNL Association: WNL Fund of Knowledge: WNL Formal Thought Process: No Impairment Description of patient's judgement and insight: Fair I/J Psychotic Thoughts and Behaviors: Denies acute AH/VH/paranoia/delusions Suicidal Ideation: No Current Homicidal Ideation?: No Discharge Summary - Discharge Note Reason for Hospitalization: HPI: 57 yo male w/ h/o MDD w/ psychosis, generalized anxiety, was recently admitted to [facility] and then signed himself out a few days later, presents with continued symptoms of depression, anxiety and bizarre behavior, including repeating words compulsively. He has had intermittent compliance with treatment and medications. He feels hopeless/helpless/worried/anxious. Denies current obsessions/compulsions. Denies current AH/VH/SI/HI, but has expressive passive suicidal ideation in the past. Patient also has sleep/appetite disturbances. He denies acute paranoia, but seems odd at times and could be acutely psychotic given his history of psychosis. PPHx: H/o two prior psychiatric admissions, most recently last week. h/o MDD w / psychosis and AYESHA Psurg: Coronary stent placed in 2004 Famhx: Father from liver CA; Mother from stroke Soc: Umployed; 15 pack year history; denies etoh or illicit drugs ALL: NKDA Consultations:: List each consultation separately and include: 1. Reason for request. 2. Findings. 3. Follow-up Consultations: Medicine consult, Psychology consult Summary of Hospital Course include:: 1. Description of specific treatment plan utilized for patients during their course of treatmen. 2. Summarize the time- course for resolution of acute symptoms and/or regressed behaviors. 3. Describe issues identified and worked on during hospitalization. 4. Describe medication utilized. 5. Describe medical problems identified and treated. 6. Reassessment of suicide risk Summary of Hospital Course: Patient was admitted to the psychiatry unit. Individual and group therapy were provided. Patient was stabilized on Klonopin 0.5 mg PO BID, Clomipramine 100 mg PO Daily and Risperdal 4 mg PO HS. Patient has improved clinically and will be discharged to home w/ outpatient follow-up. - Diagnosis (1) Obsessive compulsive disorder Current Visit: Yes Status: Chronic (2) Major depressive disorder with psychotic features Current Visit: Yes Status: Chronic (3) Generalized anxiety disorder Current Visit: Yes Status: Chronic - Final Diagnosis (DSM 5) Condition upon Discharge: STABLE DSM 5: OCD, MDD, AYESHA Disposition: HOME/ ROUTINE Follow-up Treatment Plan: OCD; MDD; AYESHA -Clomipramine 100 mg PO Daily -Risperdal 4 mg PO HS -Klonopin 0.5 mg PO BID -Individual and group therapy -Discharge with outpatient follow-up Prescriptions/Medication Reconciliation: clomiPRAMINE [Anafranil] 100 mg PO DAILY #60 cap clonazePAM [Klonopin] 0.5 mg PO BID #60 tab [id number] Ethyl Esters 1 GM [Lovaza] 1 gm PO DAILY #30 sgl risperiDONE [RisperDAL Tab] 4 mg PO HS #60 tab - Smoking Cessation Smoking Cessation Medication prescribed: Yes Reason for not providing: Nicotine patch provided during admission; patient declined prescription - Antipsychotic Medications Pt discharged on 2 or more routine antipsychotic medications: No
== END 2017-08-14 13:15 | disposition home or self-care (01) | DRG 885 ==
LOC: H.ER 12:48 → H.ERHOLD 14:32 → H.STEP 17:24
PROVIDERS: ADMIT Psychiatry & Neurology Psychiatry; ATTEND Psychiatry & Neurology Psychiatry
PROC: GZHZZZZ Group Psychotherapy (ICD-10-PCS; principal; 2017-08-01)
PROC: GZ51ZZZ Individual Psychotherapy, Behavioral (ICD-10-PCS; 2017-08-01)
DX: F32.3 Major depressive disorder, single episode, severe with psychotic features (principal); F29 Unspecified psychosis not due to a substance or known physiological condition; R45.851 Suicidal ideations; F17.210 Nicotine dependence, cigarettes, uncomplicated; Z91.19 Patient's noncompliance with other medical treatment and regimen; F41.0 Panic disorder [episodic paroxysmal anxiety]; F41.1 Generalized anxiety disorder; F42.9 Obsessive-compulsive disorder, unspecified; I10 Essential (primary) hypertension; I25.10 Atherosclerotic heart disease of native coronary artery without angina pectoris; Z79.02 Long term (current) use of antithrombotics/antiplatelets; Z79.82 Long term (current) use of aspirin; Z79.899 Other long term (current) drug therapy; Z80.0 Family history of malignant neoplasm of digestive organs; Z82.3 Family history of stroke; Z95.5 Presence of coronary angioplasty implant and graft; E78.00 Pure hypercholesterolemia, unspecified; E78.5 Hyperlipidemia, unspecified; F31.9 Bipolar disorder, unspecified

== ENCOUNTER 2017-08-22 11:39 | Inpatient (IN) | payer BC ==
[2017-08-22 11:47] VITALS: O2SAT 96
--- NOTE | 2017-08-22 12:35 | ED PDOC ---
HPI: Psych/Substance Abuse Time Seen by Provider: 08/22/17 13:43 Chief Complaint (Nursing): Psychiatric Evaluation Chief Complaint (Provider): crisis eval History Per: Patient History/Exam Limitations: no limitations Onset/Duration Of Symptoms: Hrs (today), Persistent Suicide/Self Injury Attempted (Context): None Associated Symptoms: Anxiety. denies: Suicidal Thoughts, Suicidal Plan Involuntary Hold By: None Additional Complaint(s): Phillip Fang is a 57 year old male, with a past medical history of anxiety, bipolar disorder and depression, who presents to the emergency department for crisis evaluation due to persistent anxiety. Patient states he was discharged 2 weeks ago from inpatient psych unit and states hs meds are not helping him. He denies any suicidal or homicidal ideation, no visual or auditory hallucinations. He denies etoh or drug use. PMD: None provided. Past Medical History Reviewed: Historical Data, Nursing Documentation, Vital Signs Vital Signs: Last Vital Signs Temp 97.9 F 08/22/17 11:46 Pulse 92 H 08/22/17 11:46 Resp 17 08/22/17 11:46 BP 131/83 08/22/17 11:46 Pulse Ox 96 08/22/17 11:46 - Medical History PMH: Anxiety, Bipolar Disorder, CAD, Depression, Hepatitis, HIV, HTN, Hypercholesterolemia, Hyperlipidemia - Surgical History Surgical History: Coronary Stent (2004) - Family History Family History: States: Hypertension - Living Arrangements Living Arrangements: Alone - Social History Current smoker - smoking cessation education provided: Yes (Heavy smoker >10 cigarettes daily) Alcohol: None Drugs: Denies - Home Medications Home Medications: Ambulatory Orders Medication Instructions Recorded Atorvastatin [Lipitor] 80 mg PO HS 07/09/16 Carvedilol [Coreg] 6.25 mg PO Q12 07/09/16 Clopidogrel [Plavix] 75 mg PO DAILY 07/09/16 Losartan [Cozaar] 100 mg PO DAILY 07/09/16 Aspirin [Ecotrin] 81 mg PO DAILY 07/21/16 Fenofibrate [Triglide] 160 mg PO DAILY 07/26/17 Fxibj-0-Whvn Ethyl Esters 1 GM 1 gm PO DAILY #30 sgl 08/04/17 [Lovaza] clonazePAM [Klonopin] 0.5 mg PO BID #60 tab 08/04/17 clomiPRAMINE [Anafranil] 100 mg PO DAILY #60 cap 08/14/17 risperiDONE [RisperDAL Tab] 4 mg PO HS #60 tab 08/14/17 - Allergies Allergies/Adverse Reactions: Allergies Allergy/AdvReac Type Severity Reaction Status Date / Time No Known Allergies Allergy Verified 07/26/17 13:39 Review of Systems ROS Statement: Except As Marked, All Systems Reviewed And Found Negative Psych: Positive for: Anxiety, Other (denies suicidal or homicidal ideation, denies auditory or visual hallucinations) Physical Exam - Reviewed Nursing Documentation Reviewed: Yes Vital Signs Reviewed: Yes - Physical Exam Appears: Positive for: Well, Non-toxic, No Acute Distress Head Exam: Positive for: ATRAUMATIC, NORMAL INSPECTION, NORMOCEPHALIC Skin: Positive for: Normal Color Eye Exam: Positive for: Normal appearance Neck: Positive for: Painless ROM, Supple Cardiovascular/Chest: Positive for: Regular Rate, Rhythm. Negative for: Murmur Respiratory: Positive for: Normal Breath Sounds. Negative for: Respiratory Distress Extremity: Positive for: Normal ROM. Negative for: Deformity, Swelling Neurologic/Psych: Positive for: Alert, Oriented, Mood/Affect (anxious) - Laboratory Results Result Diagrams: 08/22/17 13:30 08/22/17 13:30 - ECG Interpretation Of ECG: NSR 85 bpm, no acute changes, reviewed by PA and ED attending O2 Sat by Pulse Oximetry: 96 (RA) Pulse Ox Interpretation: Normal - Other Rad CXR X-Ray: Interpreted by Me, Viewed By Me X-Ray Interpretation: no acute finding Medical Decision Making Medical Decision Making: Time: 12:40 Initial Impression: 57 y/o male with anxiety Initial Plan: --Crisis evaluation --EKG --Alcohol serum --CMP --Drug screen, urine --CBC w/ differential --Urinalysis As per crisis counselor and psychiatrist vocational rehab consultant, Dr. Thompson, patient does meet criteria for admission. Patient agrees to sign himself in. Patient is medically stable for psychiatric admission. ~ Scribe Attestation: Documented by Phillip Huang, acting as a scribe for Sindy Gonzalez PA-C. Provider Scribe Attestation: All medical record entries made by the Scribe were at my direction and personally dictated by me. I have reviewed the chart and agree that the record accurately reflects my personal performance of the history, physical exam, medical decision making, and the department course for this patient. I have also personally directed, reviewed, and agree with the discharge instructions and disposition. Disposition - Clinical Impression Clinical Impression: Generalized anxiety disorder - Patient ED Disposition Is Patient to be Admitted: Yes - Disposition Disposition Time: 13:48 Condition: FAIR Forms: [email or web address] (Bhutanese) - Pt Status Changed To: Hospital Disposition Of: Inpatient - Admit Certification Admit to Inpatient:: After my assessment, the patient will require hospitalization for at least two midnights. This is because of the severity of symptoms shown, intensity of services needed, and/or the medical risk in this patient being treated as an outpatient. Results - Lab Results Lab Results: 08/22/17 08/22/17 08/22/17 13:30 13:30 13:30 WBC 9.8 RBC 5.08 Hgb 15.2 Hct 44.1 MCV 86.8 MCH 29.9 MCHC 34.5 RDW 13.8 Plt Count 277 MPV 7.9 Neut % (Auto) 79.2 H Lymph % (Auto) 14.5 L [place] % (Auto) 5.8 Eos % (Auto) 0.1 Baso % (Auto) 0.4 Neut # (Auto) 7.8 H Lymph # (Auto) 1.4 [place] # (Auto) 0.6 Eos # (Auto) 0.0 Baso # (Auto) 0.0 Sodium Potassium Chloride Carbon Dioxide Anion Gap BUN Creatinine Est GFR ( Amer) Est GFR (Non-Af Amer) Random Glucose Calcium Total Bilirubin AST ALT Alkaline Phosphatase Total Protein Albumin Globulin Albumin/Globulin Ratio Urine Color Yellow Urine Clarity Slighty-cloudy Urine pH 6.0 Ur Specific [place] 1.019 Urine Protein Negative Urine Glucose (UA) Neg Urine Ketones Negative Urine Blood Small Urine Nitrate Negative Urine Bilirubin Negative Urine Urobilinogen 0.2-1.0 Ur Leukocyte Esterase Neg Urine RBC (Auto) 9 H Urine Microscopic WBC 1 Urine Opiates Screen Negative Urine Methadone Screen Negative Ur Barbiturates Screen Negative Ur Phencyclidine Scrn Negative Ur Amphetamines Screen Negative U Benzodiazepines Scrn Negative U Oth Cocaine Metabols Negative U Cannabinoids Screen Negative Alcohol, Quantitative 08/22/17 13:30 WBC RBC Hgb Hct MCV MCH MCHC RDW Plt Count MPV Neut % (Auto) Lymph % (Auto) [place] % (Auto) Eos % (Auto) Baso % (Auto) Neut # (Auto) Lymph # (Auto) [place] # (Auto) Eos # (Auto) Baso # (Auto) Sodium 141 Potassium 4.1 Chloride 96 L Carbon Dioxide 25 Anion Gap 24 H BUN 17 Creatinine 0.8 Est GFR ( Amer) > 60 Est GFR (Non-Af Amer) > 60 Random Glucose 112 H Calcium 10.1 Total Bilirubin 0.4 AST 24 ALT 31 Alkaline Phosphatase 61 Total Protein 7.6 Albumin 4.4 Globulin 3.2 Albumin/Globulin Ratio 1.4 Urine Color Urine Clarity Urine pH Ur Specific [place] Urine Protein Urine Glucose (UA) Urine Ketones Urine Blood Urine Nitrate Urine Bilirubin Urine Urobilinogen Ur Leukocyte Esterase Urine RBC (Auto) Urine Microscopic WBC Urine Opiates Screen Urine Methadone Screen Ur Barbiturates Screen Ur Phencyclidine Scrn Ur Amphetamines Screen U Benzodiazepines Scrn U Oth Cocaine Metabols U Cannabinoids Screen Alcohol, Quantitative < 10
--- NOTE | 2017-08-22 13:29 | RAD ---
HISTORY: Medical clearance. COMPARISON: 08/10/2017. FINDINGS: LUNGS: No active pulmonary disease. PLEURA: No significant pleural effusion identified, no pneumothorax apparent. CARDIOVASCULAR: No radiographic findings to suggest acute or significant cardiovascular disease. OSSEOUS STRUCTURES: No significant abnormalities. VISUALIZED UPPER ABDOMEN: Normal. OTHER FINDINGS: None. IMPRESSION: No active disease. No significant interval change compared to the prior examination(s).
[2017-08-22 13:40] LABS: BASO % 0.4 % (0.0-2.0); EOS % 0.1 % (0.0-4.0); HEMOGLOBIN 15.2 g/dL (12.0-18.0); LYMPH # 1.4 K/uL (1.0-4.3); LYMPH % 14.5 % (20.0-40.0); MEAN CELL VOLUME 86.8 fl (80.0-94.0); MEAN CORPUSCULAR HEMOGLOBIN 29.9 pg (27.0-31.0); MEAN CORPUSCULAR HGB CONC 34.5 g/dL (33.0-37.0); MEAN PLATELET VOLUME 7.9 fl (7.2-11.7); MONO # 0.6 K/uL (0.0-0.8); MONO % 5.8 % (0.0-10.0); NEUT # 7.8 K/uL (1.8-7.0); NEUT % 79.2 % (50.0-75.0); RBC 5.08 Mil/uL (4.40-5.90); RED CELL DISTRIBUTION WIDTH 13.8 % (11.5-14.5); WHITE BLOOD COUNT 9.8 K/uL (4.8-10.8)
[2017-08-22 13:48] LABS: URINE BILIRUBIN NEGATIVE (NEGATIVE); URINE BLOOD SMALL (NEGATIVE); URINE CLARITY SLIGHTY-CLOUDY (Clear); URINE COLOR YELLOW (YELLOW); URINE GLUCOSE (UA) NEG (Normal); URINE LEUKOCYTE ESTERASE NEG Leu/uL (Negative); URINE PROTEIN NEGATIVE (NEGATIVE); URINE UROBILINOGEN 0.2-1.0 mg/dL (0.2-1.0)
[2017-08-22 13:57] LABS: ALB/GLOB RATIO 1.4 (1.0-2.1); ALBUMIN 4.4 g/dL (3.5-5.0); ALT/SGPT 31 U/L (21-72); AST/SGOT 24 U/L (17-59); BLOOD UREA NITROGEN 17 mg/dl (9-20); CALCIUM 10.1 mg/dL (8.4-10.2); GFR AFRICAN-AMERICAN > 60; GFR NON-AFRICAN AMERICAN > 60
[2017-08-22 14:01] LABS: BARBITURATES, UR NEGATIVE (NEGATIVE); BENZODIAZEPINES, UR NEGATIVE (NEGATIVE); OPIATES, UR NEGATIVE (NEGATIVE); PHENCYCLIDINE, UR NEGATIVE (NEGATIVE)
--- NOTE | 2017-08-22 15:12 | CARD ---
APPROVED REPORT EKG Measurement Heart [id number] <Conclusion> Normal sinus rhythm Possible Left atrial enlargement Inferior infarct, age undetermined ST & T wave abnormality, consider lateral ischemia Abnormal ECG
[2017-08-22] MEDS ORDERED: DiphenhydrAMINE 50 mg/ml Inj IM PRN (15:27)
[2017-08-22] MEDS ORDERED: Alum-Mag Hydrox-Simethicone Susp (30 mL) PO PRN (15:27)
[2017-08-22] MEDS ORDERED: Magnesium Hydroxide Susp 30 ml UD PO PRN (15:27)
[2017-08-22 16:05] VITALS: BMI 26.4
--- NOTE | 2017-08-22 16:16 | PCM.BM ---
Treatment Plan Problems - Problems identified on initial assessmt Hopelessness/Helplessness Date Initiated: 08/22/17 Time Initiated: 16:15 Assessment reference: HP, NA ALTERED SLEEP PATTERNS Date Initiated: 08/22/17 Time Initiated: 16:19 Assessment reference: HP Treatment assets and liabiliti Patient Assests: adapts well, cooperative, self-reliant, ADL independent, good support system Patient Liabilities: live alone, medical problems - Milieu Protocol Maintain good personal hygiene: daily Encourage regular showers, daily Remind patient to perform daily oral care, daily Assist patient to perform ADL's Conduct patient checks and document Observation sheet: Q15 minutes Maintain personal safety: every shift Educate patient to report safety concerns to staff, every shift Monitor environment for contraband/sharps Medication safety: Monitor for expected outcome, potential side effects: every shift, Assess barriers to learning: every shift, Assess readiness for medication education: every shift
--- NOTE | 2017-08-22 19:50 | CP.PCM.CON ---
History of Present Illness - History of Present Illness History of Present Illness: 57 yo male with history of Anxiety, CAD, HTN and HLD admitted to [facility] because of increased anxiety Review of Systems - Review of Systems All systems: reviewed and no additional remarkable complaints except (aside from those mentioned above, 14 point system review were negative by me) Past Patient History - Infectious Disease Hx of Infectious Diseases: None - Past Medical History & Family History Past Medical History?: Yes - Past Social History Alcohol: None Drugs: Denies - CARDIAC Hx Cardiac Disorders: Yes Hx Hypercholesterolemia: Yes Hx Hypertension: Yes Other/Comment: coronary stent 2004 - PULMONARY Hx Respiratory Disorders: No Hx Tuberculosis: No - NEUROLOGICAL Hx Neurological Disorder: No Hx Seizures: No - HEENT Hx HEENT Problems: Yes (L ocular deviation: denies trauma; 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 in "30's 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) Other/Comment: left lazy eye - RENAL Hx Chronic Kidney Disease: No - ENDOCRINE/METABOLIC Hx Endocrine Disorders: No - HEMATOLOGICAL/ONCOLOGICAL Hx Blood Disorders: No Hx Human Immunodeficiency Virus (HIV): Yes - INTEGUMENTARY Hx Dermatological Problems: No - MUSCULOSKELETAL/RHEUMATOLOGICAL Hx Musculoskeletal Disorders: No Hx Falls: No - GASTROINTESTINAL Hx Gastrointestinal Disorders: No Hx Ulcer: No - GENITOURINARY/GYNECOLOGICAL Hx Genitourinary Disorders: No Hx Sexually Transmitted Disorders: No - PSYCHIATRIC Hx Anxiety: Yes Hx Bipolar Disorder: Yes Hx Depression: Yes Hx Physical Abuse: No Hx Sexual Abuse: No Hx Substance Use: No - SURGICAL HISTORY Hx Coronary Stent: Yes (2004) - ANESTHESIA Hx Anesthesia: Yes Hx Anesthesia Reactions: No Hx Malignant Hyperthermia: No Has any member of the family had a problem w/ anesthesia?: No Meds Allergies/Adverse Reactions: Allergies Allergy/AdvReac Type Severity Reaction Status Date / Time No Known Allergies Allergy Verified 07/26/17 13:39 - Medications Medications: Current Medications Acetaminophen (Tylenol 325mg Tab) 650 mg PO Q4 PRN PRN Reason: Pain, Mild (1-3) Al Hydrox/Mg Hydrox/Simethicone (Maalox Plus 30 Ml) 30 ml PO Q4 PRN PRN Reason: Dyspepsia Clomipramine HCl (Anafranil) 150 mg PO DAILY ENEIDA Clonazepam (Klonopin) 1 mg PO BID ENEIDA Last Admin: 08/22/17 16:48 Dose: 1 mg Diphenhydramine HCl (Benadryl) 50 mg IM Q6 PRN PRN Reason: Extrapyramidal S/S Unable PO Diphenhydramine HCl (Benadryl) 50 mg PO Q6 PRN PRN Reason: Extrapyramidal Symptoms Haloperidol (Haldol) 5 mg PO Q4 PRN PRN Reason: Agitation Haloperidol Lactate (Haldol) 5 mg IM Q4 PRN PRN Reason: Agitation, Unable to Take PO Lorazepam (Ativan) 2 mg IM Q4 PRN PRN Reason: Anxiety/Agitation,Unable PO Lorazepam (Ativan) 2 mg PO Q4 PRN PRN Reason: Anxiety/Agitation Magnesium Hydroxide (Milk Of Magnesia) 30 ml PO HS PRN PRN Reason: Constipation Risperidone (Risperdal Tab) 4 mg PO HS ENEIDA Physical Exam - Constitutional Appears: No Acute Distress - Head Exam Head Exam: ATRAUMATIC - Eye Exam Eye Exam: absent: Scleral icterus - ENT Exam ENT Exam: Mucous Membranes Moist - Neck Exam Neck exam: Negative for: Meningismus - Respiratory Exam Respiratory Exam: absent: Rales, Rhonchi, Wheezes, Respiratory Distress - Cardiovascular Exam Cardiovascular Exam: REGULAR RHYTHM, +S1, +S2 - GI/Abdominal Exam GI & Abdominal Exam: Soft. absent: Tenderness - Rectal Exam Rectal Exam: Deferred - Neurological Exam Neurological exam: Alert, Oriented x3 - Psychiatric Exam Psychiatric exam: Normal Affect - Skin Skin Exam: Dry, Intact Results - Vital Signs Recent Vital Signs: Last Vital Signs Temp 97.3 F L 08/22/17 15:56 Pulse 82 08/22/17 15:56 Resp 18 08/22/17 15:56 BP 121/72 08/22/17 15:56 Pulse Ox 96 08/22/17 14:03 - Labs Result Diagrams: 08/22/17 13:30 08/22/17 13:30 Labs: Laboratory Results - last 24 hr 08/22/17 08/22/17 08/22/17 13:30 13:30 13:30 WBC 9.8 RBC 5.08 Hgb 15.2 Hct 44.1 MCV 86.8 MCH 29.9 MCHC 34.5 RDW 13.8 Plt Count 277 MPV 7.9 Neut % (Auto) 79.2 H Lymph % (Auto) 14.5 L [place] % (Auto) 5.8 Eos % (Auto) 0.1 Baso % (Auto) 0.4 Neut # (Auto) 7.8 H Lymph # (Auto) 1.4 [place] # (Auto) 0.6 Eos # (Auto) 0.0 Baso # (Auto) 0.0 Sodium 141 Potassium 4.1 Chloride 96 L Carbon Dioxide 25 Anion Gap 24 H BUN 17 Creatinine 0.8 Est GFR ( Amer) > 60 Est GFR (Non-Af Amer) > 60 Random Glucose 112 H Calcium 10.1 Total Bilirubin 0.4 AST 24 ALT 31 Alkaline Phosphatase 61 Total Protein 7.6 Albumin 4.4 Globulin 3.2 Albumin/Globulin Ratio 1.4 Urine Color Urine Clarity Urine pH Ur Specific [place] Urine Protein Urine Glucose (UA) Urine Ketones Urine Blood Urine Nitrate Urine Bilirubin Urine Urobilinogen Ur Leukocyte Esterase Urine RBC (Auto) Urine Microscopic WBC Urine Opiates Screen Negative Urine Methadone Screen Negative Ur Barbiturates Screen Negative Ur Phencyclidine Scrn Negative Ur Amphetamines Screen Negative U Benzodiazepines Scrn Negative U Oth Cocaine Metabols Negative U Cannabinoids Screen Negative Alcohol, Quantitative < 10 08/22/17 13:30 WBC RBC Hgb Hct MCV MCH MCHC RDW Plt Count MPV Neut % (Auto) Lymph % (Auto) [place] % (Auto) Eos % (Auto) Baso % (Auto) Neut # (Auto) Lymph # (Auto) [place] # (Auto) Eos # (Auto) Baso # (Auto) Sodium Potassium Chloride Carbon Dioxide Anion Gap BUN Creatinine Est GFR ( Amer) Est GFR (Non-Af Amer) Random Glucose Calcium Total Bilirubin AST ALT Alkaline Phosphatase Total Protein Albumin Globulin Albumin/Globulin Ratio Urine Color Yellow Urine Clarity Slighty-cloudy Urine pH 6.0 Ur Specific [place] 1.019 Urine Protein Negative Urine Glucose (UA) Neg Urine Ketones Negative Urine Blood Small Urine Nitrate Negative Urine Bilirubin Negative Urine Urobilinogen 0.2-1.0 Ur Leukocyte Esterase Neg Urine RBC (Auto) 9 H Urine Microscopic WBC 1 Urine Opiates Screen Urine Methadone Screen Ur Barbiturates Screen Ur Phencyclidine Scrn Ur Amphetamines Screen U Benzodiazepines Scrn U Oth Cocaine Metabols U Cannabinoids Screen Alcohol, Quantitative Assessment & Plan (1) Anxiety disorder Status: Acute Comment: psyche is managing (2) CAD (coronary artery disease) Status: Chronic Comment: continue Plavix, Carvedilol and statin (3) HTN (hypertension) Status: Chronic - Assessment and Plan (Free Text) Assessment: BP stable continue Losartan and Carvedilol
[2017-08-23 06:56] LABS: BASO % 0.5 % (0.0-2.0); EOS # 0.1 K/uL (0.0-0.7); EOS % 1.6 % (0.0-4.0); LYMPH # 2.1 K/uL (1.0-4.3); LYMPH % 28.9 % (20.0-40.0); MEAN CELL VOLUME 87.8 fl (80.0-94.0); MEAN CORPUSCULAR HEMOGLOBIN 29.7 pg (27.0-31.0); MEAN CORPUSCULAR HGB CONC 33.8 g/dL (33.0-37.0); MEAN PLATELET VOLUME 8.1 fl (7.2-11.7); MONO # 0.8 K/uL (0.0-0.8); MONO % 10.8 % (0.0-10.0); NEUT # 4.3 K/uL (1.8-7.0); NEUT % 58.2 % (50.0-75.0); RBC 4.72 Mil/uL (4.40-5.90); RED CELL DISTRIBUTION WIDTH 13.8 % (11.5-14.5); WHITE BLOOD COUNT 7.4 K/uL (4.8-10.8)
[2017-08-23 07:15] LABS: T4 8.34 ug/dl (5.5-11.0)
[2017-08-23 07:18] LABS: ALB/GLOB RATIO 1.3 (1.0-2.1); ALBUMIN 3.7 g/dL (3.5-5.0); ALT/SGPT 28 U/L (21-72); AST/SGOT 19 U/L (17-59); BLOOD UREA NITROGEN 22 mg/dl (9-20); CALCIUM 9.5 mg/dL (8.4-10.2); GFR AFRICAN-AMERICAN > 60; GFR NON-AFRICAN AMERICAN > 60; HDL CHOLESTEROL 33 MG/DL (30-70)
[2017-08-23 07:23] LABS: LDL CHOLESTEROL 87 mg/dL (0-129)
[2017-08-23] MEDS: Omega-3-Acid Ethyl Esters 1 GM Cap PO SCH (08:10)
[2017-08-23 15:45] VITALS: RESP 19; TEMP 98.1
--- NOTE | 2017-08-23 17:52 | PCM.PSYCH ---
Initial Psychiatric Evaluation - Initial Psychiatric Evaluation Chief Complaint (in patient's own words): came into hospital was feeling anxious was pacing, trouble resting, not be able to relax Patient's Reaction to Hospitalization: pt signed in voluntary History of Present Illness and Precipitating Events: came to hospital because was increasingly nervous was pacing could not sit still was trouble was decreased appetite reported was seen in [facility] approx. two weeks ago difficulty when alone. 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 anxiety felt as though i was going to explode did not know what do Current Medications: Active Medications Generic Name Dose Route Start Last Admin Trade Name Freq PRN Reason Stop Dose Admin Acetaminophen 650 mg 08/22/17 15:27 Tylenol 325mg Tab PO Q4 PRN Pain, Mild (1-3) Al Hydrox/Mg Hydrox/Simethicone 30 ml 08/22/17 15:27 Maalox Plus 30 Ml PO Q4 PRN Dyspepsia Aspirin 81 mg 08/23/17 09:00 08/23/17 08:09 Ecotrin PO 81 mg DAILY ENEIDA Administration Atorvastatin Calcium 80 mg 08/22/17 22:00 08/22/17 21:09 Lipitor PO 80 mg HS ENEIDA Administration Carvedilol 6.25 mg 08/22/17 21:00 08/23/17 08:08 Coreg PO 6.25 mg Q12 ENEIDA Administration Clomipramine HCl 150 mg 08/23/17 09:00 08/23/17 08:07 Anafranil PO 150 mg DAILY ENEIDA Administration Clonazepam 1 mg 08/22/17 17:00 08/23/17 16:17 Klonopin PO 1 mg BID ENEIDA Administration Clopidogrel Bisulfate 75 mg 08/23/17 09:00 08/23/17 08:10 Plavix PO 75 mg DAILY ENEIDA Administration Diphenhydramine HCl 50 mg 08/22/17 15:27 Benadryl IM Q6 PRN Extrapyramidal S/S Unable PO Diphenhydramine HCl 50 mg 08/22/17 15:27 Benadryl PO Q6 PRN Extrapyramidal Symptoms Fenofibrate 145 mg 08/23/17 09:00 08/23/17 08:11 Tricor PO 145 mg DAILY ENEIDA Administration Haloperidol 5 mg 08/22/17 15:27 Haldol PO Q4 PRN Agitation Haloperidol Lactate 5 mg 08/22/17 15:27 Haldol IM Q4 PRN Agitation, Unable to Take PO Lorazepam 2 mg 08/22/17 15:27 Ativan IM Q4 PRN Anxiety/Agitation,Unable PO Lorazepam 2 mg 08/22/17 15:27 Ativan PO Q4 PRN Anxiety/Agitation Losartan Potassium 100 mg 08/23/17 09:00 08/23/17 08:09 Cozaar PO 100 mg DAILY ENEIDA Administration Magnesium Hydroxide 30 ml 08/22/17 15:27 Milk Of Magnesia PO HS PRN Constipation Nicotine 1 patch 08/23/17 14:15 08/23/17 16:18 Nicoderm Cq TD 1 patch DAILY ENEIDA Administration [id number] Ethyl Esters 1 gm 08/23/17 09:00 08/23/17 08:10 Lovaza PO 1 gm DAILY ENEIDA Administration Risperidone 4 mg 08/22/17 22:00 08/22/17 21:08 Risperdal Tab PO 4 mg HS ENEIDA Administration Past Psychiatric History - Past Psychiatric History Prior Professional Help: both inpt and opd as well community provider Explanation of prior treatment: both inpt and opd-pt reports when alone feels lonely gets nervous is afraid cannot manage life get stressed History of Abuse: denies History of ETOH/Drug Use: denies History of Family Illness: history of depression and anxiety Pertinent Medical Hx (Current Medical&Sleep Prob, Allergies): Allergies Allergy/AdvReac Type Severity Reaction Status Date / Time No Known Allergies Allergy Verified 07/26/17 13:39 Atorvastatin [Lipitor] 80 mg PO HS 07/09/16 Carvedilol [Coreg] 6.25 mg PO Q12 07/09/16 Clopidogrel [Plavix] 75 mg PO DAILY 07/09/16 Losartan [Cozaar] 100 mg PO DAILY 07/09/16 Aspirin [Ecotrin] 81 mg PO DAILY 07/21/16 Fenofibrate [Triglide] 160 mg PO DAILY 07/26/17 [id number] Ethyl Esters 1 GM [Lovaza] 1 gm PO DAILY #30 sgl 08/04/17 clonazePAM [Klonopin] 0.5 mg PO BID #60 tab 08/04/17 clomiPRAMINE [Anafranil] 100 mg PO DAILY #60 cap 08/14/17 risperiDONE [RisperDAL Tab] 4 mg PO HS #60 tab 08/14/17 Review of Systems - Psychiatric Psychiatric: Abnormal Sleep Pattern, Anxiety Mental Status Examination - Affect Affect: Broad - Motor Activity Motor Activity: Psychomotor Agitation Additional comments: pacing - Reliability in Providing Information Reliability in Providing Information: Good - Formal Thought Process Formal Thought Process: Circumstantial - Obsessions/Compulsions Obsessions: No Compulsions: No - Cognitive Functions Orientation: Person, Place, Situation, Time Attention/Concentration: Attentive Memory: Recent intact, as evidence by: Other - Strength & Assets Inventory Strength & Assets Inventory: Cooperative (repeated admissions, both [place] and [place] ) DSM 5 DX - DSM 5 DSM 5 Diagnosis: generalized anxiety disorder panic disorder 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 - Recommended/Plan of Treatment Treatment Recommendations and Plan of Treatment: inpt adm per attending vital signs and clinical evaluation observation per protocol and per status prns per unit protocol clononazepam increased to 1mg po bid and anafranil increased to 150mg po day by attending hospitalist consult staff in process of making referral to [facility] hospital program discharge planning per attending Projected ELOS: 2-3 days Prognosis: guarded Discharge Plan and Discharge Criteria: safety - Smoking Cessation Smoking Cessation Initiated: No Reason for not providing: pt defers
[2017-08-24 05:57] VITALS: BP 139/62; PULSE 90
[2017-08-24] MEDS: Omega-3-Acid Ethyl Esters 1 GM Cap PO SCH (08:48)
--- NOTE | 2017-08-25 14:04 | PCM.PYCHDC ---
Mental Status Examination - Mental Status Examination Orientation: Person (Late Discharge note [id number]), Place, Situation, Time Memory: Intact Mood: Anxious Affect: Broad Speech: Appropriate Attention: WNL Concentration: WNL Formal Thought Process: No Impairment Description of patient's judgement and insight: improved Psychotic Thoughts and Behaviors: denied Suicidal Ideation: No Current Homicidal Ideation?: No Discharge Summary - Discharge Note Reason for Hospitalization: pt signed in voluntarily to inpt after reports of chronic anxiety and perceiving overwhelmed, not being able to relax and pacing. was recently discharged from [facility] for similar but admits that when home became overwhelmed and perceiving that requires structure such partial hospital. decreased support when not in hospital. Psychiatric History (includes Medical, Family, Personal Hx): previous admission inpt and opd, both [facility], Laboratory Data: per chart Consultations:: List each consultation separately and include: 1. Reason for request. 2. Findings. 3. Follow-up Consultations: pt was evaluated by hospitalist Summary of Hospital Course include:: 1. Description of specific treatment plan utilized for patients during their course of treatmen. 2. Summarize the time- course for resolution of acute symptoms and/or regressed behaviors. 3. Describe issues identified and worked on during hospitalization. 4. Describe medication utilized. 5. Describe medical problems identified and treated. 6. Reassessment of suicide risk Summary of Hospital Course: came to hospital because was increasingly nervous was pacing could not sit still was trouble was decreased appetite reported was seen in [facility] approx. two weeks ago difficulty when alone. 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 anxiety felt as though i was going to explode did not know what do - Diagnosis (1) Anxiety disorder Status: Acute (2) Major depression Status: Acute (3) Generalized anxiety disorder Status: Chronic Priority: Medium - Final Diagnosis (DSM 5) Condition upon Discharge: FAIR DSM 5: bipolar disorder generalized anxiety disorder panic Disposition: HOME/ ROUTINE Follow-up Treatment Plan: pt to be discharged with follow up opd partial hospital requires increased structure Prescriptions/Medication Reconciliation: clomiPRAMINE [Anafranil] 150 mg PO DAILY 15 Days #45 cap clonazePAM [Klonopin] 1 mg PO BID 3 Days #14 tab risperiDONE [RisperDAL Tab] 4 mg PO HS 15 Days #30 tab - Smoking Cessation Smoking Cessation Medication prescribed: No - Antipsychotic Medications Pt discharged on 2 or more routine antipsychotic medications: No - Justification for 2 or more meds Augmentation of Clozapine: Yes (no augmentation)
== END 2017-08-24 14:10 | disposition home or self-care (01) | DRG 880 ==
LOC: H.ER 11:39 → H.ERHOLD 14:07 → H.STEP 15:23
PROVIDERS: ADMIT Psychiatry & Neurology Psychiatry; ATTEND Psychiatry & Neurology Psychiatry
PROC: GZHZZZZ Group Psychotherapy (ICD-10-PCS; principal; 2017-08-22)
PROC: GZ58ZZZ Individual Psychotherapy, Cognitive-Behavioral (ICD-10-PCS; 2017-08-22)
DX: F41.1 Generalized anxiety disorder (principal); F32.1 Major depressive disorder, single episode, moderate; K75.9 Inflammatory liver disease, unspecified; F41.0 Panic disorder [episodic paroxysmal anxiety]; I10 Essential (primary) hypertension; I25.10 Atherosclerotic heart disease of native coronary artery without angina pectoris; E78.5 Hyperlipidemia, unspecified; E78.00 Pure hypercholesterolemia, unspecified; F17.210 Nicotine dependence, cigarettes, uncomplicated; Z95.5 Presence of coronary angioplasty implant and graft; Z79.02 Long term (current) use of antithrombotics/antiplatelets; Z79.82 Long term (current) use of aspirin

== ENCOUNTER 2017-08-28 12:16 | Inpatient (IN) | payer BC ==
[2017-08-28 12:16] VITALS: BMI 26.4
[2017-08-28 12:35] VITALS: O2SAT 99
--- NOTE | 2017-08-28 12:43 | ED PDOC ---
HPI: Psych/Substance Abuse Time Seen by Provider: 08/28/17 12:32 Chief Complaint (Nursing): Psychiatric Evaluation Chief Complaint (Provider): Psychiatric Evaluation ED Caveat: Altered Mental Status History Per: Other (Sarmad Greenwood from outpatient psychiatric clinic) History/Exam Limitations: clinical condition Onset/Duration Of Symptoms: Sudden Onset Current Symptoms Are (Timing): Still Present Additional Complaint(s): 57 year old male with medical history of bipolar disorder, hypertension and hypercholesterolemia, presents to the emergency department with Sarmad Greenwood from outpatient psychiatric clinic, for a psychiatric evaluation after he was not accepted into the [facility] program due to his pacing, repetitive and anxious behavior. PMD: none provided Past Medical History Reviewed: Historical Data, Nursing Documentation, Vital Signs Vital Signs: Last Vital Signs Temp 98 F 08/28/17 12:30 Pulse 87 08/28/17 12:30 Resp 20 08/28/17 12:30 BP 114/76 08/28/17 12:30 Pulse Ox 99 08/28/17 12:30 - Medical History PMH: Anxiety, Bipolar Disorder, CAD, Depression, Hepatitis, HIV, HTN, Hypercholesterolemia, Hyperlipidemia Denies: Diabetes, Chronic Kidney Disease, Seizures, Sexually Transmitted Disease - Surgical History Surgical History: Coronary Stent (2004) - Family History Family History: States: Unknown Family Hx, Hypertension - Living Arrangements Living Arrangements: Alone - Social History Current smoker - smoking cessation education provided: Yes Alcohol: None Drugs: Denies - Home Medications Home Medications: Ambulatory Orders Medication Instructions Recorded Atorvastatin [Lipitor] 80 mg PO HS 07/09/16 Carvedilol [Coreg] 6.25 mg PO Q12 07/09/16 Clopidogrel [Plavix] 75 mg PO DAILY 07/09/16 Losartan [Cozaar] 100 mg PO DAILY 07/09/16 Aspirin [Ecotrin] 81 mg PO DAILY 07/21/16 Fenofibrate [Triglide] 160 mg PO DAILY 07/26/17 [id number]-7-[id number] Ethyl Esters 1 GM 1 gm PO DAILY #30 sgl 08/04/17 [Lovaza] clomiPRAMINE [Anafranil] 150 mg PO DAILY 15 Days #45 cap 08/24/17 clonazePAM [Klonopin] 1 mg PO BID 3 Days #14 tab 08/24/17 risperiDONE [RisperDAL Tab] 4 mg PO HS 15 Days #30 tab 08/24/17 - Allergies Allergies/Adverse Reactions: Allergies Allergy/AdvReac Type Severity Reaction Status Date / Time No Known Allergies Allergy Verified 08/28/17 12:30 Review of Systems ROS Statement: Except As Marked, All Systems Reviewed And Found Negative Psych: Positive for: Anxiety Physical Exam - Reviewed Nursing Documentation Reviewed: Yes Vital Signs Reviewed: Yes - Physical Exam Appears: Positive for: Non-toxic, No Acute Distress Eye Exam: Positive for: Other (lazy left eye with lateral gaze). Negative for: Normal appearance Cardiovascular/Chest: Positive for: Regular Rate, Rhythm, Chest Non Tender Respiratory: Positive for: Normal Breath Sounds. Negative for: Decreased Breath Sounds, Respiratory Distress Gastrointestinal/Abdominal: Positive for: Normal Exam, Soft. Negative for: Tenderness Extremity: Positive for: Normal ROM (upper/lower). Negative for: Deformity ( Alcohol serum) Neurologic/Psych: Positive for: Alert, Mood/Affect (anxious and pacing) - Laboratory Results Result Diagrams: 08/28/17 13:20 08/28/17 13:20 - ECG ECG: Positive for: Viewed By Me ECG Rhythm: Positive for: Sinus Rhythm (nsr 68 bpm; no ectopy no acute changes) O2 Sat by Pulse Oximetry: 99 (RA) Pulse Ox Interpretation: Normal - Radiology X-Ray: Viewed By Me (no acute infiltrate; no change compared to prior cxr on file.) - Progress ED Course And Treament: seen by crisis admitted to [facility] Diagnosis Anxiety Medical Decision Making Medical Decision Making: Initial Impression: Anxiety Initial Plan: * Alcohol serum * CMP * Drug screen, urine * TSH * CBC * Ativan 1mg IM * UA Time: 1400 --Labs, UA and toxicology: negative for significant abnormalities. Scribe Attestation: Documented by Sanjana Ramey, acting as a scribe for Yarelis Perez PA-C. Provider Scribe Attestation: All medical record entries made by the Scribe were at my direction and personally dictated by me. I have reviewed the chart and agree that the record accurately reflects my personal performance of the history, physical exam, medical decision making, and the department course for this patient. I have also personally directed, reviewed, and agree with the discharge instructions and disposition. Disposition - Clinical Impression Clinical Impression: Anxiety disorder - Patient ED Disposition Is Patient to be Admitted: Yes - Disposition Disposition Time: 14:09 Condition: FAIR - Pt Status Changed To: Hospital Disposition Of: Inpatient - Admit Certification Admit to Inpatient:: After my assessment, the patient will require hospitalization for at least two midnights. This is because of the severity of symptoms shown, intensity of services needed, and/or the medical risk in this patient being treated as an outpatient.
[2017-08-28 13:40] LABS: BASO % 0.5 % (0.0-2.0); EOS % 0.5 % (0.0-4.0); LYMPH # 1.5 K/uL (1.0-4.3); LYMPH % 18.1 % (20.0-40.0); MEAN CELL VOLUME 87.1 fl (80.0-94.0); MEAN CORPUSCULAR HGB CONC 33.3 g/dL (33.0-37.0); MEAN PLATELET VOLUME 8.7 fl (7.2-11.7); MONO # 0.6 K/uL (0.0-0.8); MONO % 7.5 % (0.0-10.0); NEUT # 6.3 K/uL (1.8-7.0); NEUT % 73.4 % (50.0-75.0); NRBC % 0.4 % (0.0-0.0); RBC 5.17 Mil/uL (4.40-5.90); WHITE BLOOD COUNT 8.5 K/uL (4.8-10.8)
[2017-08-28 13:49] LABS: BENZODIAZEPINES, UR NEGATIVE (NEGATIVE)
[2017-08-28 13:58] LABS: BARBITURATES, UR NEGATIVE (NEGATIVE); OPIATES, UR NEGATIVE (NEGATIVE); PHENCYCLIDINE, UR NEGATIVE (NEGATIVE)
[2017-08-28 14:01] LABS: URINE BILIRUBIN NEGATIVE (NEGATIVE); URINE BLOOD NEGATIVE (NEGATIVE); URINE CLARITY SLIGHTY-CLOUDY (Clear); URINE COLOR YELLOW (YELLOW); URINE GLUCOSE (UA) NEG (Normal); URINE LEUKOCYTE ESTERASE NEG Leu/uL (Negative); URINE PROTEIN NEGATIVE (NEGATIVE)
[2017-08-28 14:28] LABS: ALB/GLOB RATIO 1.4 (1.0-2.1); ALBUMIN 4.3 g/dL (3.5-5.0); ALT/SGPT 34 U/L (21-72); AST/SGOT 30 U/L (17-59); BLOOD UREA NITROGEN 17 mg/dl (9-20); CALCIUM 10.1 mg/dL (8.4-10.2); GFR AFRICAN-AMERICAN > 60; GFR NON-AFRICAN AMERICAN > 60
[2017-08-28] MEDS ORDERED: DiphenhydrAMINE 50 mg/ml Inj IM PRN (15:51)
[2017-08-28] MEDS ORDERED: Alum-Mag Hydrox-Simethicone Susp (30 mL) PO PRN (15:51)
[2017-08-28] MEDS ORDERED: Magnesium Hydroxide Susp 30 ml UD PO PRN (15:51)
--- NOTE | 2017-08-28 16:16 | RAD ---
PROCEDURE: CHEST RADIOGRAPH, 1 VIEW HISTORY: ROUTINE COMPARISON: Comparison made with prior study 08/22/2017 FINDINGS: LUNGS: Minor bibasilar atelectasis. PLEURA: No pneumothorax or pleural fluid seen. CARDIOVASCULAR: Cardiac silhouette stable OSSEOUS STRUCTURES: No significant abnormalities. VISUALIZED UPPER ABDOMEN: Normal. OTHER FINDINGS: None. IMPRESSION: Minor bibasilar atelectasis.
--- NOTE | 2017-08-28 16:21 | PCM.BM ---
<Isha Ferris - Last Filed: 08/28/17 16:19> Treatment Plan Problems - Problems identified on initial assessmt anxiety Date Initiated: 08/28/17 Time Initiated: 16:20 Assessment reference: HP, NA Treatment assets and liabiliti Patient Assests: adapts well, cooperative, self-reliant, ADL independent, good support system Patient Liabilities: live alone, medical problems - Milieu Protocol Maintain good personal hygiene: daily Encourage regular showers, daily Remind patient to perform daily oral care, daily Assist patient to perform ADL's Conduct patient checks and document Observation sheet: Q15 minutes Maintain personal safety: every shift Educate patient to report safety concerns to staff, every shift Monitor environment for contraband/sharps Medication safety: Monitor for expected outcome, potential side effects: every shift, Assess barriers to learning: every shift, Assess readiness for medication education: every shift <Diana Thompson - Last Filed: 08/30/17 10:50> - Diagnosis (1) Major depressive disorder with psychotic features Status: Chronic Interventions: Medication management, Individual and group therapy, Psychoeducation 08/30/17 10:50 (2) Obsessive compulsive disorder Status: Chronic Interventions: Medication management, Individual and group therapy, Psychoeducation 08/30/17 10:51 <Owen Helton - Last Filed: 08/31/17 09:39> Family Contact Family involvement: Family/SO is involved Family contact: Patient agrees to contact, Family has been contacted by patient , Telephone contact initiated by staff Family contact name: James - Brother Family contacted how many times per week?: 6 Family contact comment: Commissary Manager met with pt's brother, James, who reported that he believes pt has more control over his symptoms than he is telling. Commissary Manager believes that pt has the ability to better control his symptoms, but may not have the insight or tools at this moment in order to do so. Commissary Manager reported that plan to discharge pt is for 08/31 and contract technical writer referred pt to [facility]. - Goals for Treatment Patient goals for treatment: Pt reported that he wanted help to better manage his anxiety, yet was unable to formulate specific actions in order to accomplish this. Patient's family/SO goals for treatment: James would like pt to learn coping skills to better manage his anxiety and hopefully attend outpatient programs to gain insight into his condition. Discharge/Continuing Care - Education Needs Education Needs: Family Medication, Family Diagnosis/Disease Process, Family Coping Skills, Family Placement options, Family Community resources, Family Aftercare Safety Plan, Patient Medication, Patient Diagnosis/Disease Process, Patient Coping Skills, Patient Placement options, Patient Community resources, Patient Aftercare Safety Plan - Discharge Discharge Criteria: Tolerates medication w/o severe side effects, Free of paranoid thoughts, Free of agitation, Normal sleep pattern, Ability to care for self, Reduction of target symptoms Discharge to:: Home - Treatment Team Participation Discussed with Family/SO: Yes Was Patient/Family/SO present at Treatment Team Meeting: Yes
--- NOTE | 2017-08-28 19:18 | CP.PCM.CON ---
History of Present Illness - History of Present Illness History of Present Illness: 57 yo male with history of Anxiety, CAD, HTN and HLD admitted to [facility] because of increased anxiety Review of Systems - Review of Systems All systems: reviewed and no additional remarkable complaints except (aside from those mentioned above, 12 point system review were negative by me) Past Patient History - Infectious Disease Hx of Infectious Diseases: None - Past Medical History & Family History Past Medical History?: Yes - Past Social History Smoking Status: Former Smoker Alcohol: None Drugs: Denies - CARDIAC Hx Cardiac Disorders: Yes Hx Hypercholesterolemia: Yes Hx Hypertension: Yes Other/Comment: coronary stent,2005 - PULMONARY Hx Respiratory Disorders: No Hx Tuberculosis: No - NEUROLOGICAL Hx Neurological Disorder: No Hx Seizures: No - HEENT Hx HEENT Problems: Yes (L ocular deviation: denies trauma; 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 in "30's 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) Other/Comment: left lazy eye, wears corrective glasses - RENAL Hx Chronic Kidney Disease: No - ENDOCRINE/METABOLIC Hx Endocrine Disorders: No - HEMATOLOGICAL/ONCOLOGICAL Hx Blood Disorders: No - INTEGUMENTARY Hx Dermatological Problems: No - MUSCULOSKELETAL/RHEUMATOLOGICAL Hx Musculoskeletal Disorders: No Hx Falls: No - GASTROINTESTINAL Hx Gastrointestinal Disorders: No Hx Ulcer: No - GENITOURINARY/GYNECOLOGICAL Hx Genitourinary Disorders: No Hx Sexually Transmitted Disorders: No - PSYCHIATRIC Hx Anxiety: Yes Hx Bipolar Disorder: Yes Hx Depression: Yes Hx Physical Abuse: No Hx Sexual Abuse: No Hx Substance Use: No - SURGICAL HISTORY Hx Surgeries: Yes Hx Coronary Stent: Yes (2004) - ANESTHESIA Hx Anesthesia: Yes Hx Anesthesia Reactions: No Hx Malignant Hyperthermia: No Has any member of the family had a problem w/ anesthesia?: No Meds Allergies/Adverse Reactions: Allergies Allergy/AdvReac Type Severity Reaction Status Date / Time No Known Allergies Allergy Verified 08/28/17 12:30 - Medications Medications: Current Medications Acetaminophen (Tylenol 325mg Tab) 650 mg PO Q4 PRN PRN Reason: Pain, Mild (1-3) Al Hydrox/Mg Hydrox/Simethicone (Maalox Plus 30 Ml) 30 ml PO Q4 PRN PRN Reason: Dyspepsia Aspirin (Ecotrin) 81 mg PO DAILY [facility] Carvedilol (Coreg) 6.25 mg PO Q12 ENEIDA Clomipramine HCl (Anafranil) 150 mg PO DAILY ENEIDA Clonazepam (Klonopin) 1 mg PO BID [facility] Last Admin: 08/28/17 17:36 Dose: 1 mg Clopidogrel Bisulfate (Plavix) 75 mg PO DAILY [facility] Diphenhydramine HCl (Benadryl) 50 mg IM Q6 PRN PRN Reason: Extrapyramidal S/S Unable PO Diphenhydramine HCl (Benadryl) 50 mg PO Q6 PRN PRN Reason: Extrapyramidal Symptoms Haloperidol (Haldol) 5 mg PO Q4 PRN PRN Reason: Agitation Haloperidol Lactate (Haldol) 5 mg IM Q4 PRN PRN Reason: Agitation, Unable to Take PO Home Med (Atorvastatin [Lipitor]) 80 mg PO HS ENEIDA Home Med (Fenofibrate [Triglide]) 160 mg PO DAILY [facility] Lorazepam (Ativan) 2 mg IM Q4 PRN PRN Reason: Anxiety/Agitation,Unable PO Lorazepam (Ativan) 2 mg PO Q4 PRN PRN Reason: Anxiety/Agitation Losartan Potassium (Cozaar) 100 mg PO DAILY [facility] Magnesium Hydroxide (Milk Of Magnesia) 30 ml PO HS PRN PRN Reason: Constipation Nrgqs-7-Lmop Ethyl Esters (Lovaza) 1 gm PO DAILY ENEIDA Risperidone (Risperdal Tab) 4 mg PO HS [facility] Physical Exam - Constitutional Appears: No Acute Distress - Head Exam Head Exam: ATRAUMATIC - Eye Exam Eye Exam: absent: Scleral icterus - ENT Exam ENT Exam: Mucous Membranes Moist - Neck Exam Neck exam: Negative for: Meningismus - Respiratory Exam Respiratory Exam: absent: Rales, Rhonchi, Wheezes, Respiratory Distress - Cardiovascular Exam Cardiovascular Exam: REGULAR RHYTHM, +S1, +S2 - GI/Abdominal Exam GI & Abdominal Exam: Soft. absent: Tenderness - Rectal Exam Rectal Exam: Deferred - Neurological Exam Neurological exam: Alert, Oriented x3 - Psychiatric Exam Psychiatric exam: Normal Affect - Skin Skin Exam: Dry, Intact Results - Vital Signs Recent Vital Signs: Last Vital Signs Temp 96.8 F L 08/28/17 15:58 Pulse 67 08/28/17 16:14 Resp 18 08/28/17 16:14 BP 101/57 L 08/28/17 15:58 Pulse Ox 99 08/28/17 15:45 - Labs Result Diagrams: 08/28/17 13:20 08/28/17 13:20 Labs: Laboratory Results - last 24 hr 08/28/17 08/28/17 08/28/17 13:20 13:20 13:20 WBC 8.5 RBC 5.17 Hgb 15.0 Hct 45.1 MCV 87.1 MCH 29.0 MCHC 33.3 RDW 14.0 Plt Count 268 MPV 8.7 Neut % (Auto) 73.4 Lymph % (Auto) 18.1 L [place] % (Auto) 7.5 Eos % (Auto) 0.5 Baso % (Auto) 0.5 Neut # (Auto) 6.3 Lymph # (Auto) 1.5 [place] # (Auto) 0.6 Eos # (Auto) 0.0 Baso # (Auto) 0.0 Sodium 140 Potassium 4.3 Chloride 98 Carbon Dioxide 25 Anion Gap 21 H BUN 17 Creatinine 0.7 L Est GFR ( Amer) > 60 Est GFR (Non-Af Amer) > 60 Random Glucose 102 Calcium 10.1 Total Bilirubin 0.9 AST 30 ALT 34 Alkaline Phosphatase 69 Total Protein 7.4 Albumin 4.3 Globulin 3.1 Albumin/Globulin Ratio 1.4 TSH 3rd Generation 0.64 Urine Color Urine Clarity Urine pH Ur Specific [place] Urine Protein Urine Glucose (UA) Urine Ketones Urine Blood Urine Nitrate Urine Bilirubin Urine Urobilinogen Ur Leukocyte Esterase Urine RBC (Auto) Urine Microscopic WBC Urine Opiates Screen Negative Urine Methadone Screen Negative Ur Barbiturates Screen Negative Ur Phencyclidine Scrn Negative Ur Amphetamines Screen Negative U Benzodiazepines Scrn Negative U Oth Cocaine Metabols Negative U Cannabinoids Screen Negative Alcohol, Quantitative < 10 08/28/17 13:20 WBC RBC Hgb Hct MCV MCH MCHC RDW Plt Count MPV Neut % (Auto) Lymph % (Auto) [place] % (Auto) Eos % (Auto) Baso % (Auto) Neut # (Auto) Lymph # (Auto) [place] # (Auto) Eos # (Auto) Baso # (Auto) Sodium Potassium Chloride Carbon Dioxide Anion Gap BUN Creatinine Est GFR ( Amer) Est GFR (Non-Af Amer) Random Glucose Calcium Total Bilirubin AST ALT Alkaline Phosphatase Total Protein Albumin Globulin Albumin/Globulin Ratio TSH 3rd Generation Urine Color Yellow Urine Clarity Slighty-cloudy Urine pH 6.0 Ur Specific [place] 1.015 Urine Protein Negative Urine Glucose (UA) Neg Urine Ketones Negative Urine Blood Negative Urine Nitrate Negative Urine Bilirubin Negative Urine Urobilinogen 2.0 Ur Leukocyte Esterase Neg Urine RBC (Auto) 3 Urine Microscopic WBC 2 Urine Opiates Screen Urine Methadone Screen Ur Barbiturates Screen Ur Phencyclidine Scrn Ur Amphetamines Screen U Benzodiazepines Scrn U Oth Cocaine Metabols U Cannabinoids Screen Alcohol, Quantitative Assessment & Plan (1) Anxiety disorder Status: Chronic Comment: psyche is managing (2) CAD (coronary artery disease) Status: Chronic Comment: continue Plavix, statin and BB (3) HTN (hypertension) Status: Chronic Comment: BP stable. continue Losartan and Carvedilol
--- NOTE | 2017-08-28 19:42 | CARD ---
APPROVED REPORT EKG Measurement Heart [id number] <Conclusion> Normal sinus rhythm Possible Left atrial enlargement Inferior infarct, age undetermined Possible anterolateral infarct, age undetermined Abnormal ECG
--- NOTE | 2017-08-28 21:02 | PCM.PSYCH ---
Initial Psychiatric Evaluation - Initial Psychiatric Evaluation Chief Complaint (in patient's own words): attempted to attend partial hospital program today became extremely nervous and director from partial hospital program at [facility] brought pt to [facility] Patient's Reaction to Hospitalization: pt voluntarily admitted History of Present Illness and Precipitating Events: was recently discharged from [facility] 3ns for anxiety. 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 reportedly when working had friends, was laid off lost contact. estrangement from brother. prior to being laid off 3 years ago denies psychiatric treatment. presents to emergency rooms and being admitted with feelings of being overwhelmed, talking to self, pacing, renumerative thoughts. 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 Current Medications: Active Medications Generic Name Dose Route Start Last Admin Trade Name Freq PRN Reason Stop Dose Admin Acetaminophen 650 mg 08/28/17 15:51 Tylenol 325mg Tab PO Q4 PRN Pain, Mild (1-3) Al Hydrox/Mg Hydrox/Simethicone 30 ml 08/28/17 15:51 Maalox Plus 30 Ml PO Q4 PRN Dyspepsia Aspirin 81 mg 08/29/17 09:00 Ecotrin PO DAILY ENEIDA Atorvastatin Calcium 80 mg 08/28/17 22:00 Lipitor PO HS ENEIDA Carvedilol 6.25 mg 08/28/17 21:00 Coreg PO Q12 ENEIDA Clomipramine HCl 175 mg 08/29/17 09:00 Anafranil PO DAILY ENEIDA Clonazepam 1 mg 08/28/17 17:00 08/28/17 17:36 Klonopin PO 1 mg BID ENEIDA Administration Clopidogrel Bisulfate 75 mg 08/29/17 09:00 Plavix PO DAILY ENEIDA Diphenhydramine HCl 50 mg 08/28/17 15:51 Benadryl IM Q6 PRN Extrapyramidal S/S Unable PO Diphenhydramine HCl 50 mg 08/28/17 15:51 Benadryl PO Q6 PRN Extrapyramidal Symptoms Fenofibrate 145 mg 08/29/17 09:00 Tricor PO DAILY ENEIDA Haloperidol 5 mg 08/28/17 15:51 Haldol PO Q4 PRN Agitation Haloperidol Lactate 5 mg 08/28/17 15:51 Haldol IM Q4 PRN Agitation, Unable to Take PO Lorazepam 2 mg 08/28/17 15:51 Ativan IM Q4 PRN Anxiety/Agitation,Unable PO Lorazepam 2 mg 08/28/17 15:51 Ativan PO Q4 PRN Anxiety/Agitation Losartan Potassium 100 mg 08/29/17 09:00 Cozaar PO DAILY [facility] Magnesium Hydroxide 30 ml 08/28/17 15:51 Milk Of Magnesia PO HS PRN Constipation [id number] Ethyl Esters 1 gm 08/29/17 09:00 Lovaza PO DAILY ENEIDA Risperidone 4 mg 08/28/17 22:00 Risperdal Tab PO HS ENEIDA Past Psychiatric History - Past Psychiatric History Prior Professional Help: attempted ph became anxious returned to er Prior Psychiatric Treatment: pt inpt and opd and [facility] History of Abuse: denies History of ETOH/Drug Use: denies History of Family Illness: denies Pertinent Medical Hx (Current Medical&Sleep Prob, Allergies): Allergies Allergy/AdvReac Type Severity Reaction Status Date / Time No Known Allergies Allergy Verified 08/28/17 12:30 Atorvastatin [Lipitor] 80 mg PO HS 07/09/16 Carvedilol [Coreg] 6.25 mg PO Q12 07/09/16 Clopidogrel [Plavix] 75 mg PO DAILY 07/09/16 Losartan [Cozaar] 100 mg PO DAILY 07/09/16 Aspirin [Ecotrin] 81 mg PO DAILY 07/21/16 Fenofibrate [Triglide] 160 mg PO DAILY 07/26/17 [id number] Ethyl Esters 1 GM [Lovaza] 1 gm PO DAILY #30 sgl 08/04/17 clomiPRAMINE [Anafranil] 150 mg PO DAILY 15 Days #45 cap 08/24/17 clonazePAM [Klonopin] 1 mg PO BID 3 Days #14 tab 08/24/17 risperiDONE [RisperDAL Tab] 4 mg PO HS 15 Days #30 tab 08/24/17 Review of Systems - Psychiatric Psychiatric: Anxiety, Depression, Panic Attacks Additional comments: renumerative thoughts talking to self denies other ritualist behaviors Mental Status Examination - Personal Presentation Personal Presentation: Looks stated age - Affect Affect: Constricted - Motor Activity Motor Activity: Psychomotor Retardation - Reliability in Providing Information Reliability in Providing Information: Fair - Speech Speech: Organized - Mood Mood: Anxious - Formal Thought Process Formal Thought Process: No Impairment - Obsessions/Compulsions Obsessions: Yes Compulsions: Yes Description of Obsession/Compulsion: renumerative thoughts, repetitive speech, pacing - Cognitive Functions Orientation: Person, Place, Situation, Time Sensorium: Alert Attention/Concentration: Easily distracted Judgement: Imparied, as evidence by: Other Memory: Recent impaired, as evidenced by: Other - Risk Risk: Suicidal - Strength & Assets Inventory Strength & Assets Inventory: Intelligence, Life experience, Cooperative Additional comments: pt reported college graduate previously worked on [employer] - Limitations Limitations: Living alone (laid off 3 yrs ago, decreased contact with others estrangement brother) DSM 5 DX - DSM 5 DSM 5 Diagnosis: 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 generalized anxiety with panic obsessive compulsive disorder 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 - Recommended/Plan of Treatment Treatment Recommendations and Plan of Treatment: inpt admission per attending clinical assessment and vital signs per protocol and per clinical status unit based prns hospitalist consult increase clomapramine 175mg po daily (increase from 150mg upon previous discharge) resume other rx discharge planning in progress discussed with pt possibility on no longer being able to live by self if cannot tolerate being alone, frequent admissions for anxiety, attempt re expose pt to partial hospital Projected ELOS: 5-7 days Prognosis: guarded Discharge Plan and Discharge Criteria: safety - Smoking Cessation Smoking Cessation Initiated: No Reason for not providing: pt defers
[2017-08-29 06:53] LABS: BASO % 0.6 % (0.0-2.0); EOS # 0.1 K/uL (0.0-0.7); EOS % 1.8 % (0.0-4.0); LYMPH # 1.6 K/uL (1.0-4.3); LYMPH % 27.7 % (20.0-40.0); MEAN CELL VOLUME 88.2 fl (80.0-94.0); MEAN CORPUSCULAR HEMOGLOBIN 29.3 pg (27.0-31.0); MEAN CORPUSCULAR HGB CONC 33.2 g/dL (33.0-37.0); MEAN PLATELET VOLUME 8.5 fl (7.2-11.7); MONO # 0.7 K/uL (0.0-0.8); MONO % 11.5 % (0.0-10.0); NEUT # 3.4 K/uL (1.8-7.0); NEUT % 58.4 % (50.0-75.0); NRBC % 0.6 % (0.0-0.0); RBC 4.8 Mil/uL (4.40-5.90); RED CELL DISTRIBUTION WIDTH 14.2 % (11.5-14.5); WHITE BLOOD COUNT 5.9 K/uL (4.8-10.8)
[2017-08-29 07:00] LABS: ALB/GLOB RATIO 1.3 (1.0-2.1); ALBUMIN 3.8 g/dL (3.5-5.0); ALT/SGPT 32 U/L (21-72); AST/SGOT 18 U/L (17-59); BLOOD UREA NITROGEN 21 mg/dl (9-20); CALCIUM 9.5 mg/dL (8.4-10.2); GFR AFRICAN-AMERICAN > 60; GFR NON-AFRICAN AMERICAN > 60; HDL CHOLESTEROL 35 MG/DL (30-70)
[2017-08-29 07:08] LABS: LDL CHOLESTEROL 93 mg/dL (0-129)
[2017-08-29 07:16] LABS: T4 9.61 ug/dl (5.5-11.0)
[2017-08-29] MEDS: Omega-3-Acid Ethyl Esters 1 GM Cap PO SCH (08:41)
--- NOTE | 2017-08-29 18:10 | PCM.PYCHPN ---
Psychiatric Progress Note - Psychiatric Progress Note Patient seen today, length of contact: chart reviewed case discussed with team Patient Chief Complaint: pt seen watching tv with his legs/feet up on table watching tv, seen walking about unit asking about meals for dinner, while on on unit staff report that pt has been free of previous behaviors such as repetative behaviors, has not asked for prn, denies side effects from increased anafrinil Problems Identified/Issues Discussed: alteration in coping alteration mood ? dependent personality traits ?ptsd Medical Problems: per chart Diagnostic Results: per psychiatry per medicine per nursing per social work DSM 5 Symptoms Update: alteration in mood alteration in coping Medication Change: No (team may consider increasing anafranil) Medical Record Reviewed: Yes Consults ordered or reviewed: pt being followed by hospitalist Mental Status Examination - Cognitive Function Orientation: Person, Place, Situation, Time Attention: WNL Concentration: WNL Association: WNL Fund of Knowledge: WN Decription of patient's judgement and insights: impaired - Mood Mood: Anxious - Affect Affect: Constricted - Speech Speech: Appropriate - Formal Thought Process Formal Thought Process: No Impairment - Homicidal Ideation Homicidal Ideation: No Goal/Treatment Plan - Goal/Treatment Plan Progress Toward Problem(s) and Goals/Treatment Plan: inpt admission per attending clinical assessment and vital signs per protocol and per clinical status unit based prns hospitalist consult increase clomapramine 175mg po daily (increase from 150mg upon previous discharge) resume other rx discharge planning in progress discussed with pt possibility on no longer being able to live by self if cannot tolerate being alone, frequent admissions for anxiety, attempt re expose pt to partial hospital Estimated Date of D/C: 08/31/17 - Smoking Cessation Smoking Cessation Initiated: No Reason for not providing: pt defers
[2017-08-30 05:57] VITALS: RESP 18
[2017-08-30] MEDS: Omega-3-Acid Ethyl Esters 1 GM Cap PO SCH (08:28)
--- NOTE | 2017-08-30 10:53 | PCM.PYCHPN ---
Psychiatric Progress Note - Psychiatric Progress Note Patient seen today, length of contact: Patient evaluated, case discussed with team, chart reviewed Patient Chief Complaint: "I'm anxious" Problems Identified/Issues Discussed: Patient reports that he feels anxious. He denies acute depression or psychotic symptoms. He continues to have compulsive behaviors. Psychoeducation provided on the importance of care home therapy to deal with his compulsions. We discussed continue titration of Anafranil. Medication Change: Yes (Increase Anafranil to 200 mg PO Daily) Medical Record Reviewed: Yes Consults ordered or reviewed: Medicine consult Mental Status Examination - Cognitive Function Orientation: Person, Place, Situation, Time Memory: Intact Attention: WNL Concentration: WNL Association: WNL Fund of Knowledge: [facility] Decription of patient's judgement and insights: Fair I/J - Mood Mood: Anxious - Affect Affect: Constricted - Speech Speech: Appropriate - Formal Thought Process Formal Thought Process: No Impairment Psychotic Thoughts and Behaviors: No AH/VH/paranoia/delusions - Suicidal Ideation Suicidal Ideation: No - Homicidal Ideation Homicidal Ideation: No Goal/Treatment Plan - Goal/Treatment Plan Need for Continued Stay: Remain at risks for inpatient hospitalization, Discharge may exacerbated symptoms Progress Toward Problem(s) and Goals/Treatment Plan: Major Depressive Disorder; Obsessive Compulsive Disorder; Generalized Anxiety Disorder -Increase Anafranil to 200 mg PO Daily -Continue Klonopin 1 mg PO BID -Continue Risperdal 4 mg PO HS -Psychoeducation -Disposition planning Estimated Date of D/C: 08/31/17
[2017-08-31 05:55] VITALS: TEMP 97.8
[2017-08-31] MEDS: Omega-3-Acid Ethyl Esters 1 GM Cap PO SCH (08:46)
[2017-08-31 08:50] VITALS: BP 131/76; PULSE 60
--- NOTE | 2017-08-31 09:23 | PCM.PYCHDC ---
Mental Status Examination - Mental Status Examination Orientation: Person, Place, Situation, Time Memory: Intact Mood: Neutral Affect: Broad Speech: Appropriate Attention: WNL Concentration: WNL Association: WNL Fund of Knowledge: WNL Formal Thought Process: No Impairment Description of patient's judgement and insight: Fair I/J Psychotic Thoughts and Behaviors: No AH/VH/paranoia/delusions Suicidal Ideation: No Current Homicidal Ideation?: No Discharge Summary - Discharge Note Reason for Hospitalization: As per initial HPI note: "was recently discharged from [facility] 3ns for anxiety. 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 estrangement from brother. prior to being laid off 3 years ago denies psychiatric treatment. presents to emergency rooms and being admitted with feelings of being overwhelmed, talking to self, pacing, renumerative thoughts. 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 " Consultations:: List each consultation separately and include: 1. Reason for request. 2. Findings. 3. Follow-up Consultations: Medicine consult Summary of Hospital Course include:: 1. Description of specific treatment plan utilized for patients during their course of treatmen. 2. Summarize the time- course for resolution of acute symptoms and/or regressed behaviors. 3. Describe issues identified and worked on during hospitalization. 4. Describe medication utilized. 5. Describe medical problems identified and treated. 6. Reassessment of suicide risk Summary of Hospital Course: Patient was admitted to the psychiatry unit. Individual and group therapy were provided. Patient was stabilized on Anafranil 200 mg PO Daily, Risperdal 4 mg PO HS and Klonopin 1 mg PO BID. Psychoeducation provided on the importance of longterm therapy to develop coping strategies to deal with his anxiety and his compulsive behaviors. He is psychiatrically stable for discharge with outpatient follow-up. - Diagnosis (1) Major depressive disorder with psychotic features Current Visit: No Status: Chronic (2) Obsessive compulsive disorder Current Visit: No Status: Chronic - Final Diagnosis (DSM 5) Condition upon Discharge: STABLE DSM 5: Major Depressive Disorder w/ Psychotic Features, Obsessive Compulsive Disorder, Generalized Anxiety Disorder Disposition: HOME/ ROUTINE Follow-up Treatment Plan: Major Depressive Disorder; Obsessive Compulsive Disorder; Generalized Anxiety Disorder -Continue Anafranil 200 mg PO Daily -Continue Klonopin 1 mg PO BID -Continue Risperdal 4 mg PO HS -Psychoeducation -Disposition planning- Discharge w/ outpatient follow-up Prescriptions/Medication Reconciliation: clomiPRAMINE [Anafranil] 200 mg PO DAILY #120 cap - Smoking Cessation Smoking Cessation Medication prescribed: No Reason for not providing: Patient declined - Antipsychotic Medications Pt discharged on 2 or more routine antipsychotic medications: No
== END 2017-08-31 13:15 | disposition home or self-care (01) | DRG 885 ==
LOC: H.ER 12:16 → H.ERHOLD 14:09 → H.STEP 15:38
PROVIDERS: ADMIT Psychiatry & Neurology Psychiatry; ATTEND Psychiatry & Neurology Psychiatry
PROC: GZHZZZZ Group Psychotherapy (ICD-10-PCS; principal; 2017-08-28)
DX: F32.3 Major depressive disorder, single episode, severe with psychotic features (principal); E78.00 Pure hypercholesterolemia, unspecified; F41.1 Generalized anxiety disorder; F42.9 Obsessive-compulsive disorder, unspecified; I10 Essential (primary) hypertension; I25.10 Atherosclerotic heart disease of native coronary artery without angina pectoris; E78.5 Hyperlipidemia, unspecified; Z95.5 Presence of coronary angioplasty implant and graft; F17.200 Nicotine dependence, unspecified, uncomplicated

== ENCOUNTER 2017-12-26 17:56 | Emergency (ER) | payer BC ==
[2017-12-26 17:57] VITALS: BMI 25.8
[2017-12-26 17:58] VITALS: BP 134/79; PULSE 74; RESP 19; TEMP 97.6; O2SAT 95
[2017-12-26] MEDS ORDERED: Lidocaine 1% Inj (20ml) IJ ONE (18:23)
--- NOTE | 2017-12-26 18:27 | ED PDOC ---
HPI: Dental Pain/Injury Chief Complaint (Provider): fall, broke tooth Onset/Duration Of Symptoms: Hrs Current Symptoms Are (Timing): Still Present Additional Complaint(s): 57 yo male, slipped and fell face forward down 2 marble steps on stairs in [place] today; hit head but no LOC. States tooth fell out in the process; pt has tooth with him. Has hx CAD w/ stent, HTN, HLD, depression. <Alycia Apple - Last Filed: 12/26/17 20:05> <Fred aMncia - Last Filed: 12/26/17 20:41> Time Seen by Provider: 12/26/17 18:12 Chief Complaint (Nursing): Trauma Supervising Attending Note - Supervising Attending Note The Documented history was done by the: Physician Drug Clerk The documented physical exam was done by the: Physician Drug Clerk The documented procedures were done by the: Physician Drug Clerk - Attestation: I have personally seen and examined this patient.: Yes I have fully participated in the care of the patient.: Yes I have reviewed all pertinent clinical information, including history, physical exam and plan: Yes <Fred Mancia - Last Filed: 12/26/17 20:41> Past Medical History Vital Signs: Last Vital Signs Temp 97.6 F 12/26/17 17:57 Pulse 74 12/26/17 17:57 Resp 19 12/26/17 17:57 BP 134/79 12/26/17 17:57 Pulse Ox 95 12/26/17 17:57 - Medical History PMH: Anxiety, Bipolar Disorder, CAD, Depression, Hepatitis, HIV, HTN, Hypercholesterolemia, Hyperlipidemia Denies: Diabetes, Chronic Kidney Disease, Seizures, Sexually Transmitted Disease - Surgical History Surgical History: Coronary Stent (2004) - Family History Family History: States: Unknown Family Hx, Hypertension <Alycia Apple - Last Filed: 12/26/17 20:05> Vital Signs: Last Vital Signs Temp 97.6 F 12/26/17 17:57 Pulse 74 12/26/17 17:57 Resp 19 12/26/17 17:57 BP 134/79 12/26/17 17:57 Pulse Ox 95 12/26/17 18:29 <Fred Mancia - Last Filed: 12/26/17 20:41> - Home Medications Home Medications: Ambulatory Orders Medication Instructions Recorded Atorvastatin [Lipitor] 80 mg PO HS 07/09/16 Carvedilol [Coreg] 6.25 mg PO Q12 07/09/16 Clopidogrel [Plavix] 75 mg PO DAILY 07/09/16 Losartan [Cozaar] 100 mg PO DAILY 07/09/16 Aspirin [Ecotrin] 81 mg PO DAILY 07/21/16 Fenofibrate [Triglide] 160 mg PO DAILY 07/26/17 [id number] Ethyl Esters 1 GM 1 gm PO DAILY #30 sgl 08/04/17 [Lovaza] clomiPRAMINE [Anafranil] 200 mg PO DAILY #120 cap 08/30/17 clonazePAM [Klonopin] 1 mg PO BID tab 08/30/17 risperiDONE [RisperDAL Tab] 4 mg PO HS tab 08/30/17 Amoxicillin/Clavulanate [Augmentin 1 tab PO BID #10 tab 12/26/17 875 MG-125 MG] - Allergies Allergies/Adverse Reactions: Allergies Allergy/AdvReac Type Severity Reaction Status Date / Time No Known Allergies Allergy Verified 08/28/17 12:30 Review of Systems ROS Statement: Except As Marked, All Systems Reviewed And Found Negative ENT: Positive for: Mouth Pain (secondary to fall) <Alycia Apple - Last Filed: 12/26/17 20:05> Physical Exam - Reviewed Nursing Documentation Reviewed: Yes Vital Signs Reviewed: Yes - Physical Exam Head Exam: Negative for: ATRAUMATIC (missing tooth in front; has 5 cm laceration on lip) Skin: Positive for: Normal Color Eye Exam: Positive for: PERRL Neck: Positive for: Painless ROM Cardiovascular/Chest: Positive for: Regular Rate, Rhythm, Chest Non Tender Respiratory: Positive for: Normal Breath Sounds. Negative for: Respiratory Distress Pulses-Post. Tibialis (L): 2+ Pulses-Post. Tibialis (R): 2+ Pulses-Radial (L): 2+ Pulses-Radial (R): 2+ Gastrointestinal/Abdominal: Positive for: Soft. Negative for: Tenderness Extremity: Positive for: Capillary Refill (less than 2 sec). Negative for: Deformity Neurologic/Psych: Positive for: Alert <Alycia Apple - Last Filed: 12/26/17 20:05> - ECG O2 Sat by Pulse Oximetry: 95 <Alycia Apple - Last Filed: 12/26/17 20:05> - ECG ECG: Positive for: Interpreted By Me, Viewed By Me Interpretation Of Abn EKG: NSR at 65 bpm, LAD, no ectopy, qs in leads II/III/F, inverted T in leads I/L, no st changes, ABNL EKG; unchanged compare with old ekg 08/2017 Pulse Ox Interpretation: Normal - Radiology X-Ray: Read By Radiologist - Progress ED Course And Treament: Time; 18:[address] FINDINGS: HEMORRHAGE: No intracranial hemorrhage. BRAIN: No mass effect or edema. No atrophy or chronic microvascular ischemic changes. VENTRICLES: Unremarkable. No hydrocephalus. CALVARIUM: Unremarkable. PARANASAL SINUSES: Chronic ethmoid and right maxillary sinusitis. MASTOID AIR CELLS: Unremarkable as visualized. No inflammatory changes. OTHER FINDINGS: None. IMPRESSION: No acute intracranial abnormalities. No significant findings to account for the clinical presentation. ------ Time: 18:[address] FINDINGS: NASAL BONES: Unremarkable. ORBITS: Unremarkable. PARANASAL SINUSES/ MASTOIDS: Chronic frontal, ethmoid and right maxillary sinus disease. MAXILLA: Unremarkable. MANDIBLE/ TEMPOROMANDIBULAR JOINTS: Unremarkable. SKULL BASE: Unremarkable. TEMPORAL BONES: Middle ears and mastoid grossly unremarkable. OTHER FINDINGS: Soft tissue swelling/ laceration below the nose likely affecting the upper lip. No visulaized radiopaque/visualized foreign body. IMPRESSION: Soft tissue injury/ laceration to the upper lip. No visulaized radiopaque/ visualized foreign body. Chronic sinusitis. Otherwise unremarkable study I performed the hx and physical exam of the patient and discussed their mgt with the RESIDENT. I reviewed the RESIDENT's NOTE and agree with the assessment and plan of care. 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 but no laxity is noted (site of false teeth implantation); + complex upper inner lip stellate laceration is noted ~ 4-5cm in total length with a hanging lip tissue; no FB noted; neurovasc intact; uvula/ tongue are midline, no exudate/lesions/FB/masses; pt is verbal lungs: cta b/l, no w/r/r cards: +S1, +S2, no m/r/r i was able to repair pt's complex upper lip laceration pt tolerated procedure well pt's brother arrived at bedside pt is encouraged wound care and to have soft diets for the next 2-3 days and encouraged dental outpt f/u [facility] pt/family are made aware of his medical results pt is encouraged wound care pt is encouraged ice to mouth/oral region 15min/hr over the next 1-2 days pt will f/u as directed pt will be discharged home Re-evaluation Time: 19:30 Condition: Re-examined, Improved <Fred Mancia - Last Filed: 12/26/17 20:41> Medical Decision Making Medical Decision Making: - EKG - CT head w/o contrast - Maxillofacial CT without contrast - 5 cm lacteration repaired - see attached section. Pt tolerated well. <Alycia Apple - Last Filed: 12/26/17 20:05> Disposition - Disposition Disposition Time: 20:06 <Alycia Apple - Last Filed: 12/26/17 20:05> - Patient ED Disposition Is Patient to be Admitted: No Counseled Patient/Family Regarding: Studies Performed, Diagnosis, Need For Followup, Rx Given - Disposition Disposition: Routine/Home <Fred Mancia - Last Filed: 12/26/17 20:41> - Clinical Impression Clinical Impression: Facial contusion, Lip laceration, Head injury, Dental trauma - Disposition Referrals: [facility] [Outside] [facility] [Outside] [facility] [Outside] PCP,NO [Non-Staff] - Condition: STABLE Additional Instructions: Make sure to see your doctor in 1-2 days YOU NEED TO SEE YOUR dentists in 1-2 days DRINK PLENTY OF FLUIDS gurggle water, gurggle listerine to keep your mouth clean take your medications as prescribed RETURN TO ED IF worse pain, cant breath, persistent vomiting, high fever >101- 102 for hours, altered behavior, slurr speech, facial changes, focal weakness ( arm/leg or both), unable to urinate, heavy/persistent bleeding, passing out, chest pain, or other medical emergencies Prescriptions: Amoxicillin/Clavulanate [Augmentin 875 MG-125 MG] 1 tab PO BID #10 tab Instructions: Concussion in Adults, Laceration Repair, Wound Care (DC), Closed Head Injury, Fractured Tooth (DC) Forms: [employer] (Liberian) Print Language: BENINESE Laceration - Laceration Repair No standard instances Wound Length (In cm): 1.97 in Description Of Wound: Stellate (complex stellate upper inner lip without jamie border involvement) Anesthesia: Lidocaine 1% (3.5ml) Wound Examination: Foreign Material Removed Manually Wound Closure: Suture ([address] Mancia) Suture Technique And Material Used: Interrupted, Vicryl (4.0) Wound Complexity: Complex <Alycia Apple - Last Filed: 12/26/17 20:05> - Laceration Repair No standard instances Wound Length (In cm): 1.77 in Anesthesia: Lidocaine 1%, Lidocaine 2% (3.5ml) Wound Examination: Irrigated With Saline Wound Debridement/Revision: Wound Debrided, Wound Margins Revised Wound Closure: Suture ([address] Mancia) Suture Technique And Material Used: Vicryl (6 interrupted 4.0 vicryl with one 3.0 placed in subcutaneous fat of lip) <Fred Mancia - Last Filed: 12/26/17 20:41>
[2017-12-26] MEDS ORDERED: Lidocaine 2% Inj (20ml) IJ ONE (18:41)
--- NOTE | 2017-12-26 18:54 | CT ---
Date of service: 12/26/2017 PROCEDURE: CT HEAD WITHOUT CONTRAST. HISTORY: slipped and fall down 2 steps, facial injury COMPARISON: None available. TECHNIQUE: Axial computed tomography images were obtained through the head/brain without intravenous contrast. Coronal and sagittal reconstructed images. Radiation dose: Total exam DLP = 919.95 mGy-cm. This CT exam was performed using one or more of the following dose reduction techniques: Automated exposure control, adjustment of the mA and/or kV according to patient size, and/or use of iterative reconstruction technique. FINDINGS: HEMORRHAGE: No intracranial hemorrhage. BRAIN: No mass effect or edema. No atrophy or chronic microvascular ischemic changes. VENTRICLES: Unremarkable. No hydrocephalus. CALVARIUM: Unremarkable. PARANASAL SINUSES: Chronic ethmoid and right maxillary sinusitis. MASTOID AIR CELLS: Unremarkable as visualized. No inflammatory changes. OTHER FINDINGS: None. IMPRESSION: No acute intracranial abnormalities. No significant findings to account for the clinical presentation.
--- NOTE | 2017-12-26 18:56 | CT ---
Date of service: 12/26/2017 PROCEDURE: CT MAXILLOFACIAL BONES WITHOUT CONTRAST HISTORY: slipped and fall down 2 steps, facial injury COMPARISON: None TECHNIQUE: Contiguous axial CT images of the maxillofacial bones were obtained. Coronal and sagittal reformats were generated. Radiation dose: Total exam DLP = 874.40 mGy-cm. This CT exam was performed using one or more of the following dose reduction techniques: Automated exposure control, adjustment of the mA and/or kV according to patient size, and/or use of iterative reconstruction technique. FINDINGS: NASAL BONES: Unremarkable. ORBITS: Unremarkable. PARANASAL SINUSES/ MASTOIDS: Chronic frontal, ethmoid and right maxillary sinus disease. MAXILLA: Unremarkable. MANDIBLE/ TEMPOROMANDIBULAR JOINTS: Unremarkable. SKULL BASE: Unremarkable. TEMPORAL BONES: Middle ears and mastoid grossly unremarkable. OTHER FINDINGS: Soft tissue swelling/ laceration below the nose likely affecting the upper lip. No visulaized radiopaque/visualized foreign body. IMPRESSION: Soft tissue injury/ laceration to the upper lip. No visulaized radiopaque/visualized foreign body. Chronic sinusitis. Otherwise unremarkable study
--- NOTE | 2017-12-28 15:31 | CARD ---
APPROVED REPORT Date of service: 12/26/2017 EKG Measurement Heart [id number] <Conclusion> Normal sinus rhythm Lateral infarct, age undetermined Inferior infarct, age undetermined Abnormal ECG
== END 2017-12-26 20:12 | disposition home or self-care (01) ==
LOC: H.ER 17:56
DX: S01.511A Laceration without foreign body of lip, initial encounter (principal); S00.83XA Contusion of other part of head, initial encounter; S02.5XXA Fracture of tooth (traumatic), initial encounter for closed fracture; W10.9XXA Fall (on) (from) unspecified stairs and steps, initial encounter; Y92.89 Other specified places as the place of occurrence of the external cause; E78.00 Pure hypercholesterolemia, unspecified; Z95.5 Presence of coronary angioplasty implant and graft; B20 Human immunodeficiency virus [HIV] disease

== ENCOUNTER 2018-01-07 07:20 | Emergency (ER) | payer BC ==
[2018-01-07 07:31] VITALS: TEMP 98; O2SAT 98
[2018-01-07 07:32] VITALS: BMI 26.6
--- NOTE | 2018-01-07 08:06 | ED PDOC ---
HPI: Wound Care - HPI Time Seen by Provider: 01/07/18 07:27 Chief Complaint (Nursing): Suture/Staple Removal Chief Complaint (Provider): Suture/Staple Removal History Per: Patient Exam Limitations: no limitations Onset/Duration Of Symptoms: Days (x12) Current Symptoms Are (Timing): Gone Now Additional Complaint(s): 57 y/o male with a PMHx of HTN, HLD, Anxiety, and CAD w/ stent presents to the ED for suture removal. Patient states he was here on December 26 for a dental injury/pain s/p fall. Patient reports sutures were placed on the inside of his lip and that he would like to get it removed. Patient states he went to his dentist yesterday for the suture removal who stated they could not do it there and the patient must return back to the ED for the removal thus prompting today' s visit. Denies cough, bleeding, headache, and other physical complaints at this time. PMD: None Provided Past Medical History Reviewed: Historical Data, Nursing Documentation, Vital Signs Vital Signs: Last Vital Signs Temp 98.0 F 01/07/18 07:31 Pulse 63 01/07/18 07:31 Resp 16 01/07/18 07:31 BP 105/57 L 01/07/18 07:31 Pulse Ox 98 01/07/18 07:31 - Medical History PMH: Anxiety, Bipolar Disorder, CAD, Depression, Hepatitis, HIV, HTN, Hypercholesterolemia, Hyperlipidemia Denies: Diabetes, Chronic Kidney Disease, Seizures, Sexually Transmitted Disease - Surgical History Surgical History: Coronary Stent (2004) - Family History Family History: States: Hypertension - Home Medications Home Medications: Ambulatory Orders Medication Instructions Recorded Atorvastatin [Lipitor] 80 mg PO HS 07/09/16 Carvedilol [Coreg] 6.25 mg PO Q12 07/09/16 Clopidogrel [Plavix] 75 mg PO DAILY 07/09/16 Losartan [Cozaar] 100 mg PO DAILY 07/09/16 Aspirin [Ecotrin] 81 mg PO DAILY 07/21/16 Fenofibrate [Triglide] 160 mg PO DAILY 07/26/17 Agkht-[id number] Ethyl Esters 1 GM 1 gm PO DAILY #30 sgl 08/04/17 [Lovaza] clomiPRAMINE [Anafranil] 200 mg PO DAILY #120 cap 08/30/17 clonazePAM [Klonopin] 1 mg PO BID tab 08/30/17 risperiDONE [RisperDAL Tab] 4 mg PO HS tab 08/30/17 Amoxicillin/Clavulanate [Augmentin 1 tab PO BID #10 tab 12/26/17 875 MG-125 MG] - Allergies Allergies/Adverse Reactions: Allergies Allergy/AdvReac Type Severity Reaction Status Date / Time No Known Allergies Allergy Verified 01/07/18 07:36 Review of Systems ROS Statement: Except As Marked, All Systems Reviewed And Found Negative Constitutional: Positive for: Other (Suture Removal ) Physical Exam - Reviewed Nursing Documentation Reviewed: Yes Vital Signs Reviewed: Yes - Physical Exam Appears: Positive for: No Acute Distress Head Exam: Positive for: ATRAUMATIC, NORMOCEPHALIC Skin: Positive for: Normal Color, Warm, Dry Eye Exam: Positive for: Normal appearance ENT: Positive for: Normal ENT Inspection, Other (Scab noted to the right upper lip mucosa. No stitiches identified. No discharge. Non-tender. No open laceration.) Respiratory: Negative for: Accessory Muscle Use, Respiratory Distress Extremity: Positive for: Normal ROM Neurologic/Psych: Positive for: Alert, Oriented (x3), Gait (steady. (Ambulating with no issue)). Negative for: Motor/Sensory Deficits - ECG O2 Sat by Pulse Oximetry: 98 (RA) Pulse Ox Interpretation: Normal Medical Decision Making Medical Decision Making: Time: 0755 -- Previous note reviewed, patient was sutured with vicryl on the inner lip. Vicryl is an absorbable, sterile surgical suture and thus why it was not evident on the physical exam. -- Patient has no other physical complaints at this time and is stable for discharge. Scribe Attestation: Documented by Gregg Oshea acting as a scribe for Dr. Shady Ardon MD. Provider Scribe Attestation: All medical record entries made by the Scribe were at my direction and personally dictated by me. I have reviewed the chart and agree that the record accurately reflects my personal performance of the history, physical exam, medical decision making, and the department course for this patient. I have also personally directed, reviewed, and agree with the discharge instructions and disposition. Disposition - Clinical Impression Clinical Impression: Encounter for evaluation of wound - Disposition Referrals: [facility] [Outside] - 01/08/18 Disposition Time: 12:37 Condition: STABLE Additional Instructions: Return if not better in 3 days. You had vicryl sutures placed which are absorbable. They go away on their own. Instructions: Wound Care (DC) Forms: [employer] (Bolivian)
[2018-01-07 08:15] VITALS: BP 110/60; PULSE 69; RESP 18
== END 2018-01-07 08:14 | disposition home or self-care (01) ==
LOC: H.ER 07:20
DX: Z48.02 Encounter for removal of sutures (principal)

== ENCOUNTER 2018-01-24 20:44 | Emergency (ER) | payer BC ==
[2018-01-24 20:45] VITALS: BMI 26.6
[2018-01-24 20:56] VITALS: RESP 18
--- NOTE | 2018-01-24 23:11 | ED PDOC ---
HPI: Altered Mental Status Time Seen by Provider: 01/24/18 21:23 Chief Complaint (Nursing): Altered Mental Status Chief Complaint (Provider): Altered Mental Status History Per: Patient, EMS History/Exam Limitations: None Onset/Duration Of Symptoms: Hrs Current Symptoms Are (Timing): Still Present Associated Symptoms: Confused Additional Complaint(s): Phillip Fang is a 57 year old male with an extensive psych history who was brought to the ED by EMS/Police for concern of disorientation. Patient is alert and, oriented x3, and cooperative/calm. He states that he got home from work in the early afternoon and took a nap. Patient states that he woke up at 7 pm thinking it was 7 am, got ready, and went to work at [employer]. Once he was there other people in the park said he was confused and couldn't understand why all the buildings were locked. A bystander called the police. Brother, Madisyn Fang was contacted and confirms that patient suffers from numerous psych problems but safely lives alone and is independent in daily living. 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 Patient denies any illness or discomfort. PMD: none provided Past Medical History Reviewed: Historical Data, Nursing Documentation, Vital Signs Vital Signs: Last Vital Signs Temp 98.2 F 01/24/18 20:50 Pulse 79 01/24/18 20:50 Resp 18 01/24/18 20:50 BP 150/82 01/24/18 20:50 Pulse Ox 97 01/24/18 20:50 - Medical History PMH: Anxiety, Bipolar Disorder, CAD, Depression, Hepatitis, HIV, HTN, Hypercholesterolemia, Hyperlipidemia Denies: Diabetes, Chronic Kidney Disease, Seizures, Sexually Transmitted Disease - Surgical History Surgical History: Coronary Stent (2004) - Family History Family History: States: Unknown Family Hx, Hypertension - Social History Current smoker - smoking cessation education provided: No (former) Alcohol: None Drugs: Denies - Home Medications Home Medications: Ambulatory Orders Medication Instructions Recorded Atorvastatin [Lipitor] 80 mg PO HS 07/09/16 Carvedilol [Coreg] 6.25 mg PO Q12 07/09/16 Clopidogrel [Plavix] 75 mg PO DAILY 07/09/16 Losartan [Cozaar] 100 mg PO DAILY 07/09/16 Aspirin [Ecotrin] 81 mg PO DAILY 07/21/16 Fenofibrate [Triglide] 160 mg PO DAILY 07/26/17 Yoaiy-5-Elwx Ethyl Esters 1 GM 1 gm PO DAILY #30 sgl 08/04/17 [Lovaza] clomiPRAMINE [Anafranil] 200 mg PO DAILY #120 cap 08/30/17 clonazePAM [Klonopin] 1 mg PO BID tab 08/30/17 risperiDONE [RisperDAL Tab] 4 mg PO HS tab 08/30/17 Amoxicillin/Clavulanate [Augmentin 1 tab PO BID #10 tab 12/26/17 875 MG-125 MG] - Allergies Allergies/Adverse Reactions: Allergies Allergy/AdvReac Type Severity Reaction Status Date / Time No Known Allergies Allergy Verified 01/07/18 07:36 Review of Systems ROS Statement: Except As Marked, All Systems Reviewed And Found Negative Constitutional: Negative for: Fever Cardiovascular: Negative for: Chest Pain Respiratory: Positive for: Cough (pt states frequent cough due to smoking). Negative for: Shortness of Breath Gastrointestinal: Negative for: Nausea, Vomiting, Abdominal Pain Neurological: Positive for: Confusion. Negative for: Weakness, Numbness, Headache, Dizziness Psych: Positive for: Anxiety Physical Exam - Reviewed Nursing Documentation Reviewed: Yes Vital Signs Reviewed: Yes - Physical Exam Appears: Positive for: Non-toxic, No Acute Distress Head Exam: Positive for: ATRAUMATIC, NORMAL INSPECTION, NORMOCEPHALIC Skin: Positive for: Normal Color, Warm, DRY Eye Exam: Positive for: Normal appearance, EOMI, PERRL, Other (exotropia) ENT: Positive for: Normal ENT Inspection Neck: Positive for: Normal, Painless ROM Cardiovascular/Chest: Positive for: Regular Rate, Rhythm. Negative for: Murmur Respiratory: Positive for: Crackles (with cough) Gastrointestinal/Abdominal: Positive for: Normal Exam, Soft. Negative for: Tenderness Back: Positive for: Normal Inspection Extremity: Positive for: Normal ROM. Negative for: Deformity, Swelling Neurologic/Psych: Positive for: Alert, Oriented. Negative for: Motor/Sensory Deficits - ECG O2 Sat by Pulse Oximetry: 97 (RA) Pulse Ox Interpretation: Normal Medical Decision Making Medical Decision Making: Time: 21:33 Plan: --Normal appearing patient, anxious but cooperative. --Chest x-ray due to crackles on physical exam. --Home dose of Clonopin for anxiety. --Discharge home when brother arrives. CXR normal. Pt's brother is bedside and will drive pt home and help the patient get his car in the morning. Pt will follow up with psychiatrist and primary medical doctor as needed. Scribe Attestation: Documented by Nicmo Molina, acting as a scribe for Tiffany Coronado MD. Provider Scribe Attestation: All medical record entries made by the Scribe were at my direction and personally dictated by me. I have reviewed the chart and agree that the record accurately reflects my personal performance of the history, physical exam, medical decision making, and the department course for this patient. I have also personally directed, reviewed, and agree with the discharge instructions and disposition. Disposition - Clinical Impression Clinical Impression: Confusion - Disposition Referrals: [facility] [Outside] Disposition Time: 23:15 Condition: IMPROVED Additional Instructions: Follow up with psychiatrist and primary medical doctor as needed. Return to the emergency department if you feel unsafe. Instructions: Delirium (Confusion) (DC) Forms: [employer] (Hungarian)
[2018-01-24 23:28] VITALS: BP 148/80; PULSE 82; TEMP 97.9
[2018-01-25 01:14] VITALS: O2SAT 97
--- NOTE | 2018-01-25 08:38 | RAD ---
HISTORY: COMPARISON: 08/28/2017 TECHNIQUE: Chest PA and lateral FINDINGS: LINES AND TUBES: None. LUNG AND PLEURA: The lungs are well inflated and clear. No pleural effusion or pneumothorax. HEART AND MEDIASTINUM: The heart is not enlarged. The hilar and mediastinal contours are within normal limits. SKELETAL STRUCTURES: The bony structures are within normal limits for the patient's age. VISUALIZED UPPER ABDOMEN: Normal. OTHER FINDINGS: None. IMPRESSION: No active pulmonary disease.
== END 2018-01-24 23:28 | disposition home or self-care (01) ==
LOC: H.ER 20:44
DX: R41.0 Disorientation, unspecified (principal); E78.00 Pure hypercholesterolemia, unspecified; F31.9 Bipolar disorder, unspecified; F41.9 Anxiety disorder, unspecified; I10 Essential (primary) hypertension; I25.10 Atherosclerotic heart disease of native coronary artery without angina pectoris; Z79.82 Long term (current) use of aspirin; Z95.5 Presence of coronary angioplasty implant and graft

== ENCOUNTER 2018-02-13 09:41 | Emergency (ER) | payer BC, MEDICARE ==
[2018-02-13 09:41] VITALS: BMI 26.6
[2018-02-13 10:04] VITALS: RESP 17
--- NOTE | 2018-02-13 10:53 | ED PDOC ---
HPI: Psych/Substance Abuse Time Seen by Provider: 02/13/18 10:29 Chief Complaint (Nursing): Psychiatric Evaluation Chief Complaint (Provider): "panic attack" History Per: Patient History/Exam Limitations: no limitations Onset/Duration Of Symptoms: Mins Current Symptoms Are (Timing): Still Present Additional Complaint(s): 57 yo male with history of HTN, CAD, high cholesterol, bipolar and anxiety presents for evaluation after apanic attack this morning. Pt states he did not take any medications for anxiety. Pt states that last night he took one of his psychiatric medications which he psychiatrist told him to discontinue. PT states he is not sure which one it was. Pt denies chest pain, SOB, abdominal pain, N/V/D. Denies SI/HI Past Medical History Reviewed: Historical Data, Nursing Documentation, Vital Signs Vital Signs: Last Vital Signs Temp 98 F 02/13/18 10:04 Pulse 92 H 02/13/18 10:04 Resp 17 02/13/18 10:04 BP 127/87 02/13/18 10:04 Pulse Ox 99 02/13/18 10:04 - Medical History PMH: Anxiety, Bipolar Disorder, CAD, Depression, Hepatitis, HIV, HTN, Hypercholesterolemia, Hyperlipidemia Denies: Diabetes, Chronic Kidney Disease, Seizures, Sexually Transmitted Disease - Surgical History Surgical History: Coronary Stent (2004) - Family History Family History: States: Unknown Family Hx, Hypertension - Living Arrangements Living Arrangements: With Family - Social History Current smoker - smoking cessation education provided: No - Home Medications Home Medications: Ambulatory Orders Medication Instructions Recorded Atorvastatin [Lipitor] 80 mg PO HS 07/09/16 Carvedilol [Coreg] 6.25 mg PO Q12 07/09/16 Clopidogrel [Plavix] 75 mg PO DAILY 07/09/16 Losartan [Cozaar] 100 mg PO DAILY 07/09/16 Aspirin [Ecotrin] 81 mg PO DAILY 07/21/16 Fenofibrate [Triglide] 160 mg PO DAILY 07/26/17 [id number] Ethyl Esters 1 GM 1 gm PO DAILY #30 sgl 08/04/17 [Lovaza] clomiPRAMINE [Anafranil] 200 mg PO DAILY #120 cap 08/30/17 clonazePAM [Klonopin] 1 mg PO BID tab 08/30/17 risperiDONE [RisperDAL Tab] 4 mg PO HS tab 08/30/17 Amoxicillin/Clavulanate [Augmentin 1 tab PO BID #10 tab 12/26/17 875 MG-125 MG] - Allergies Allergies/Adverse Reactions: Allergies Allergy/AdvReac Type Severity Reaction Status Date / Time No Known Allergies Allergy Verified 01/07/18 07:36 Review of Systems ROS Statement: Except As Marked, All Systems Reviewed And Found Negative Constitutional: Negative for: Fever, Chills Cardiovascular: Negative for: Chest Pain, Palpitations Gastrointestinal: Negative for: Nausea, Vomiting, Abdominal Pain, Diarrhea Neurological: Negative for: Dizziness Psych: Positive for: Anxiety. Negative for: Suicidal ideation, Withdrawal Physical Exam - Reviewed Nursing Documentation Reviewed: Yes Vital Signs Reviewed: Yes - Physical Exam Appears: Positive for: Well, Non-toxic, No Acute Distress Head Exam: Positive for: ATRAUMATIC, NORMAL INSPECTION, NORMOCEPHALIC Skin: Positive for: Normal Color, Warm, DRY Eye Exam: Positive for: Normal appearance ENT: Positive for: Normal ENT Inspection Neck: Positive for: Normal, Painless ROM Cardiovascular/Chest: Positive for: Regular Rate, Rhythm Respiratory: Positive for: CNT, Normal Breath Sounds Back: Positive for: Normal Inspection Extremity: Positive for: Normal ROM Neurologic/Psych: Positive for: Alert, Oriented, Other (Denies SI/HI) - ECG O2 Sat by Pulse Oximetry: 99 Medical Decision Making Medical Decision Making: Pt feels better on re-evaluation. Crisis evaluation completed. Disposition - Clinical Impression Clinical Impression: Anxiety disorder - Patient ED Disposition Is Patient to be Admitted: No - Disposition Disposition: Routine/Home Disposition Time: 11:53 Condition: STABLE Instructions: Anxiety, Adult (DC) Forms: [employer] (Turkmen)
[2018-02-13 12:15] VITALS: BP 124/67; PULSE 78; TEMP 97.8; O2SAT 100
== END 2018-02-13 12:13 | disposition home or self-care (01) ==
LOC: H.ER 09:41
DX: F41.0 Panic disorder [episodic paroxysmal anxiety] (principal); I10 Essential (primary) hypertension; Z86.59 Personal history of other mental and behavioral disorders; Z95.5 Presence of coronary angioplasty implant and graft; E78.00 Pure hypercholesterolemia, unspecified; Z79.82 Long term (current) use of aspirin; I25.10 Atherosclerotic heart disease of native coronary artery without angina pectoris